=== PATIENT | male | born 1935 | race Hispanic/Latino ===

== ENCOUNTER 2017-05-11 08:01 | Day surgery (SDC) | payer MEDICARE, BC ==
[2017-05-11 08:22] VITALS: BMI 22.8
[2017-05-11] MEDS ORDERED: Propofol 10 mg/ml Inj (20 ML) ONE (09:38)
[2017-05-11] MEDS ORDERED: Benzocaine/Butamben/Tetracai 14-2-2% TOP Spray TOP ONE (09:45)
[2017-05-11] MEDS ORDERED: Sodium Chloride 0.9% 1,000 ML IV SCH (10:15)
[2017-05-11 11:21] VITALS: BP 140/75; PULSE 103; RESP 18; TEMP 97.3; O2SAT 92
== END 2017-05-11 11:32 | disposition home or self-care (01) ==
LOC: ENDO 08:01
PROVIDERS: ATTEND Specialist
DX: K29.50 Unspecified chronic gastritis without bleeding (principal); K44.9 Diaphragmatic hernia without obstruction or gangrene; I10 Essential (primary) hypertension; J44.9 Chronic obstructive pulmonary disease, unspecified; E78.5 Hyperlipidemia, unspecified
CPT/HCPCS: 43239; 88305; 88342; J2704; J7040 ×2

== ENCOUNTER 2017-05-16 10:34 | Inpatient (IN) | payer MEDICARE, BC ==
[2017-05-16 10:39] VITALS: BMI 29.0
--- NOTE | 2017-05-16 10:59 | ED PDOC ---
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 Patient uses nebulizer treatments at home with no improvement of symptoms. notes a cough but denies any fever, nausea, vomiting, abdominal pain, chest pain or any other complaints. PMD: Dr. Latham Time/Duration: < month Symptom Course: Worsening Quality: Other Context: Home Past Medical History - Provider Review Nursing Documentation Reviewed: Yes - Cardiac Hx Pacemaker: No - Pulmonary Hx Respiratory Disorders: Yes Hx Chronic Obstructive Pulmonary Disease (COPD): Yes Other/Comment: as per family, with chronic cough, on/off coughing noted during interview - Neurological Hx Neurological Disorder: Yes HX Cerebrovascular Accident: Yes (2009- right side weakness) Hx Seizures: No (on kepra to prevent seizure post CVA) - HEENT Hx HEENT Disorder: Yes Hx Cataracts: Yes - Renal Hx Renal Disorder: No - Endocrine/Metabolic Hx Endocrine Disorders: No - Hematological/Oncological Hx Blood Transfusions: No Hx Blood Transfusion Reaction: No - Integumentary Hx Dermatological Disorder: Yes Other/Comment: right lower leg with scab - Musculoskeletal/Rheumatological Hx Musculoskeletal Disorders: Yes - Gastrointestinal Hx Gastrointestinal Disorders: No - Genitourinary/Gynecological Hx Genitourinary Disorders: No - Psychiatric Hx Emotional Abuse: No Hx Physical Abuse: No Hx Substance Use: No - Anesthesia Hx Anesthesia Reactions: No Hx Malignant Hyperthermia: No - Suicidal Assessment Feels Threatened In Home Enviroment: No Family/Social History - Physician Review Nursing Documentation Reviewed: Yes Family/Social History: No Known Family HX Smoking Status: Former Smoker Hx Alcohol Use: Yes Hx Substance Use: No Allergies/Home Meds Allergies/Adverse Reactions: Allergies ampicillin Allergy (Verified 05/16/17 10:41) RASH influenza virus vaccine, specific Allergy (Verified 05/16/17 10:41) RASH Penicillins Allergy (Verified 05/16/17 10:41) RASH Home Medications: Home Meds Medication Instructions Recorded Confirmed Enalapril Maleate [Vasotec] 10 cap PO DAILY 01/14/16 05/16/17 Levetiracetam [Keppra Xr] 500 cap PO HS 01/14/16 05/16/17 Metoprolol Tartrate 25 cap PO DAILY 01/14/16 05/16/17 Omeprazole 40 mg PO DAILY 01/14/16 05/16/17 Simvastatin 40 mg PO HS 01/14/16 05/16/17 Thiamine [Vitamin B1 Tab] 1 cap PO DAILY 01/14/16 05/16/17 Escitalopram [Lexapro] 5 mg PO DAILY 05/11/17 05/16/17 Budesonide [Pulmicort Respules] 1 inh NEB BID 05/16/17 05/16/17 Ipratropium 0.02% [Atrovent] 1 inh NEB QID 05/16/17 05/16/17 Meloxicam [Mobic] 7.5 mg PO BID 05/16/17 05/16/17 Review of Systems - Physician Review All systems were reviewed & negative as marked: Yes - Review of Systems Constitutional: absent: Fevers Respiratory: SOB, Cough Cardiovascular: absent: Chest Pain Gastrointestinal: absent: Abdominal Pain, Nausea, Vomiting Physical Exam Vital Signs Reviewed: Yes Vital Signs Temp Pulse Resp BP 05/16/17 12:54 81 05/16/17 12:52 81 05/16/17 12:01 65 109/51 L 05/16/17 11:00 118/61 05/16/17 10:35 98.9 F 74 16 131/64 Temperature: Afebrile Blood Pressure: Normal Pulse: Regular Respiratory Rate: Normal Appearance: Positive for: Well-Appearing, Non-Toxic, Uncomfortable Pain Distress: None Mental Status: Positive for: Alert and Oriented X 3 - Systems Exam Head: Present: Atraumatic, Normocephalic Pupils: Present: PERRL Extroacular Muscles: Present: EOMI Conjunctiva: Present: Normal Mouth: Present: Moist Mucous Membranes Neck: Present: Normal Range of Motion Respiratory/Chest: Present: Tachypneic, Other (Crackles throughout entire lung field). No: Respiratory Distress, Accessory Muscle Use Cardiovascular: Present: Regular Rate and Rhythm, Normal S1, S2. No: Murmurs Abdomen: Present: Normal Bowel Sounds. No: Tenderness, Distention, Peritoneal Signs Back: Present: Normal Inspection Upper Extremity: No: Cyanosis, Edema Lower Extremity: Present: Edema (+2 pitting edema in right lower extremity, trace edema in left lower extremity), NORMAL PULSES. No: CALF TENDERNESS Neurological: Present: Other (right sided paralysis and right facial droop s/p cva) Skin: Present: Warm, Dry, Normal Color. No: Rashes Psychiatric: Present: Alert, Oriented x 3, Normal Insight, Normal Concentration Medical Decision Making ED Course and Treatment: 05/16/17 10:53 Impression: A 81 year old male with worsening shortness of breath and cough. Differential Diagnosis included but are not limited to: Hypercapneic respiratory failure vs CHF exacerbation vs COPD Exacerbation r/o PNA Plan: -- Chest xray -- EKG -- Labs -- Blood and Urine culture -- Urinalysis -- Duoneb, Lasix, Solumedrol and Nitroglycerin -- Reassess and disposition Progress Notes: EKG shows NSR at 74 BPM with bifascicular block. Interpreted by me. 05/16/17 12:34 On arrival, patient was placed immediately on BiPAP. Labs and CXR reviewed. CXR shows right sided infiltrates vs pleural effusion. Will treat with levaquin IV. Blood cultures already sent. Patient improved with BiPAP but still having symptoms. Consulted Dr. Huerta from the ICU and he accepted the case to his service. Case discussed with Dr. Alec Villa who will admit the patient to his service. - Critical Care Critical Care Minutes: 60 minutes - Lab Interpretations Lab Results: 05/16/17 11:04 05/16/17 11:04 Lab Results 05/16/17 12:13: pCO2 63 H, pO2 97.0, HCO3 34.0 H, ABG pH 7.34 L, ABG Total CO2 35.9 H, ABG O2 Saturation 98.8 H, ABG O2 Content 18.2, ABG Base Excess 6.2 H, ABG Hemoglobin 13.4, ABG Carboxyhemoglobin 1.8 H, POC ABG HHb (Measured) 1.2, ABG Methemoglobin 1.1, ABG O2 Capacity 18.4, Hgb O2 Saturation 95.9, FiO2 50.0 05/16/17 11:04: Sodium 139, Chloride 95 L, Potassium 4.8, Carbon Dioxide 34 H, Anion Gap 15, BUN 24 H, Creatinine 0.7, Est GFR ( Amer) > 60, Est GFR ( Non-Af Amer) > 60, Random Glucose 140 H, Calcium 9.3, Total Bilirubin 0.4, AST 85 H, ALT 90 H, Alkaline Phosphatase 91, Lactate Dehydrogenase 692, Total Creatine Kinase 36, Troponin I < 0.01, NT-Pro-B Natriuret Pep 390, Total Protein 7.6, Albumin 3.9, Globulin 3.6, Albumin/Globulin Ratio 1.1 05/16/17 11:04: pO2 118 H, VBG pH 7.29 L, VBG pCO2 76.0 H*, VBG HCO3 36.5 H, VBG Total CO2 38.8 H, VBG O2 Sat (Calc) 99.1 H, VBG Base Excess 7.1 H, VBG Potassium 4.8, Sodium 134.0, Chloride 98.0, Glucose 142 H, Lactate 1.8, FiO2 21.0, Venous Blood Potassium 4.8 05/16/17 11:04: PT 11.4, INR 1.06, APTT 27.6 05/16/17 11:04: WBC 9.1 D, RBC 4.54, Hgb 13.7 L, Hct 42.6, MCV 93.8, MCH 30.2, MCHC 32.2, RDW 13.2, Plt Count 200, MPV 10.6, Gran % 78.9 H, Lymph % (Auto) 12.3 L, [place] % (Auto) 8.6 H, Eos % (Auto) 0.1 L, Baso % (Auto) 0.1, Gran # 7.20 H, Lymph # 1.1 L, [place] # 0.8 H, Eos # 0.0, Baso # 0.01 I have reviewed the lab results: Yes - RAD Interpretation Radiology Orders: 05/16/17 10:52 CHEST PORTABLE [RAD] Stat 05/16/17 12:12 CHEST W/O CONTRAST [CT] Stat - Medication Orders Current Medication Orders: Atorvastatin Calcium (Lipitor) 40 mg PO DAILY MIYA Levetiracetam (Keppra) 500 mg PO DAILY MIYA Discontinued Medications Albuterol/Ipratropium (Duoneb 3 Mg/0.5 Mg (3 Ml) Ud) 3 ml IH Q15M MIYA Stop: 05/16/17 11:31 Last Admin: 05/16/17 12:05 Dose: 3 ml Furosemide (Lasix) 40 mg IVP STAT STA Stop: 05/16/17 10:52 Last Admin: 05/16/17 11:00 Dose: 40 mg MAR Blood Pressure Document 05/16/17 11:00 AD (Rec: 05/16/17 11:32 [facility] [id number] Blood Pressure Blood Pressure (100/60-150/90) 118/61 IVP Administration Document 05/16/17 11:00 AD (Rec: 05/16/17 11:32 [facility] [id number]) Charges for Administration # of IVP Administrations 1 Levofloxacin/Dextrose (Levaquin 750mg) 750 mg in 150 mls @ 100 mls/hr IVPB STAT STA Stop: 05/16/17 12:45 Last Admin: 05/16/17 11:44 Dose: 100 mls/hr eMAR Start Stop Document 05/16/17 11:44 AD (Rec: 05/16/17 11:44 [facility] [id number]) Intravenous Solution Start Date 05/16/17 Start Time 11:44 Methylprednisolone (Solu-Medrol) 125 mg IVP STAT STA Stop: 05/16/17 10:52 Last Admin: 05/16/17 11:00 Dose: 125 mg IVP Administration Document 05/16/17 11:00 AD (Rec: 05/16/17 11:33 [facility] [id number]) Charges for Administration # of IVP Administrations 1 Nitroglycerin (Nitro-Bid 2% Oint) 1 ea TOP STAT STA Stop: 05/16/17 11:01 - Scribe Statement The provider has reviewed the documentation as recorded by the Scribe Trish Collier Provider Scribe Attestation: All medical record entries made by the Scribe were at my direction and personally dictated by me. I have reviewed the chart and agree that the record accurately reflects my personal performance of the history, physical exam, medical decision making, and the department course for this patient. I have also personally directed, reviewed, and agree with the discharge instructions and disposition. Disposition/Present on Arrival - Present on Arrival Any Indicators Present on Arrival: No History of DVT/PE: No History of Uncontrolled Diabetes: No Urinary Catheter: No History Surgical Site Infection Following: None - Disposition Have Diagnosis and Disposition been Completed?: Yes Diagnosis: CHF exacerbation, Respiratory failure Disposition Time: 12:34 Patient Plan: ICU Patient Problems: Current Active Problems Problem Status Onset CHF exacerbation Acute Respiratory failure Acute Condition: GUARDED
[2017-05-16] MEDS ORDERED: Nitroglycerin 2% Ointment Foilpak UD TOP STA (11:00)
[2017-05-16 11:10] LABS: VENOUS BLOOD GAS BASE EXCESS 7.1 mmol/L (0.0-2.0); VENOUS BLOOD PH 7.29 (7.32-7.43)
[2017-05-16] MEDS ORDERED: levoFLOXacin 750 mg in D5W 750 MG/150 ML BAG IVPB STA (11:16)
[2017-05-16 11:18] LABS: BASO # 0.01 K/mm3 (0.0-2.0); BASO % 0.1 % (0.0-3.0); EOS % 0.1 % (1.5-5.0); GRAN # 7.2 (1.4-6.5); GRAN % 78.9 % (50.0-68.0); HEMATOCRIT 42.6 % (42.0-52.0); LYMPH # 1.1 (1.2-3.4); LYMPH % 12.3 % (22.0-35.0); MEAN CELL VOLUME 93.8 fl (80.0-105.0); MEAN CORPUSCULAR HEMOGLOBIN 30.2 pg (25.0-35.0); MEAN CORPUSCULAR HGB CONC 32.2 g/dl (31.0-37.0); MEAN PLATELET VOLUME 10.6 fl (7.0-11.0); MONO # 0.8 (0.1-0.6); MONO % 8.6 % (1.0-6.0); RED CELL DISTRIBUTION WIDTH 13.2 % (11.5-14.5); WHITE BLOOD COUNT 9.1 10^3/ul (4.5-11.0)
[2017-05-16 11:23] LABS: ALB/GLOB RATIO 1.1 (1.1-1.8); ALKALINE PHOSPHATASE 91 U/L (38-126); ALT/SGPT 90 U/L (7-56); AST/SGOT 85 U/L (17-59); BILIRUBIN,TOTAL 0.4 mg/dL (0.2-1.3); BLOOD UREA NITROGEN 24 mg/dL (7-21); CALCIUM 9.3 mg/dL (8.4-10.5); CARBON DIOXIDE 34 mmol/L (21-33); CHLORIDE 95 mmol/L (98-107); GFR AFRICAN-AMERICAN > 60; GLUCOSE,RANDOM 140 mg/dL (70-110); INR 1.06 (0.93-1.08); PARTIAL THROMBOPLASTIN TIME 27.6 Seconds (23.7-30.8); POTASSIUM 4.8 mmol/L (3.6-5.0); SODIUM 139 mmol/L (132-148); TOTAL PROTEIN 7.6 g/dL (5.8-8.3)
[2017-05-16] MEDS: Albuterol-Ipratrop 3 mg / 0.5 (3 ml) UD IH SCH ×7 (11:33→23:26)
[2017-05-16 11:35] LABS: TROPONIN I < 0.01 ng/mL
[2017-05-16 12:16] LABS: ARTERIAL BLOOD GAS O2 CAPACITY 18.4 mL/dl (16-24); ARTERIAL BLOOD GAS O2 CONTENT 18.2 ML/dl (15-23); ARTERIAL BLOOD GAS PH 7.34 (7.35-7.45); ARTERIAL BLOOD HGB O2 SAT 95.9 % (95.0-98.0); CARBOXYHEMOGLOBIN 1.8 % (0.5-1.5); HHB 1.2 % (0-5); METHEMOGLOBIN 1.1 % (0.0-3.0)
--- NOTE | 2017-05-16 13:07 | RAD ---
HISTORY: sob r/o pna r/o chf COMPARISON: 10/09/2015 FINDINGS: LUNGS: There is haziness in the visualized right lung. There is mild pulmonary venous congestion in the left lung. No focal consolidation in the left lung. PLEURA: There is moderate right pleural effusion. No left pleural effusion. No pneumothorax CARDIOVASCULAR: There is mild cardiomegaly. Atherosclerotic aortic arch calcifications are present. . OSSEOUS STRUCTURES: No significant abnormalities. VISUALIZED UPPER ABDOMEN: Normal. OTHER FINDINGS: None. IMPRESSION: Limited portable examination, moderate right pleural effusion. Underlying atelectasis/ pneumonia cannot be excluded. Follow-up is advised.
--- NOTE | 2017-05-16 13:07 | CT ---
PROCEDURE: CT Chest without contrast HISTORY: pneumonia COMPARISON: Comparison made with chest radiograph 06/15/2017 at 1059 hours. Comparison also made with chest radiographs dated 10/09/2015. TECHNIQUE: Contiguous axial images were obtained through the chest without intravenous contrast enhancement. Sagittal and coronal reconstructions were performed. Radiation dose (DLP): 663.93 mGy-cm. This CT exam was performed using one or more of the following dose reduction techniques: Automated exposure control, adjustment of the mA and/or kV according to patient size, and/or use of iterative reconstruction technique. FINDINGS: LUNGS: The current study reveals large right-sided effusion and moderately large area of atelectasis right lower lobe . The right lower lobe bronchus is not visualized and may either be compressed by atelectasis however the possibility of a hilar or perihilar mass density cannot be excluded. Clinical correlation recommended. MEDIASTINUM: Heart size is within range of normal. Questionable trace pericardial effusion. Coronary artery calcifications are present. Ascending thoracic aorta measures approximately 3.6 7 cm and descending thoracic aorta measures approximately 2.8 cm. Pulmonary trunk measures approximately 3.36 cm. There are multiple mediastinal lymph nodes the largest of which is located posterior to the esophagus measuring approximately 17.6 mm. Evaluation for hilar adenopathy on the left side limited due to the lack of circulating intravenous contrast material. Similarly evaluation for right hilar adenopathy limited due to the lack of contrast however further limited by atelectasis of the right lower lobe. As mentioned above, the possibility of a hilar or perihilar mass density cannot be excluded. Clinical correlation recommended. PLEURA: As above. No evidence of pneumothorax. BONES: Multilevel degenerative spondylosis of the thoracic spine. There are no acute compression fractures no retropulsed fragments. Mild increased kyphotic angulation in the upper thoracic region due to some minor chronic anterior stature loss of several upper thoracic segments. No evidence of retropulsed fragments. . No suspicious lytic or blastic lesions seen. UPPER ABDOMEN: There are multiple low-attenuation lesions scattered throughout the hepatic parenchyma the appearance of which suggests metastatic deposits. Clinical correlation recommended. There is a discrete somewhat elliptical shaped area of low attenuation superior lateral aspect left lobe liver bordering the diaphragm measuring approximately 4.5 x 3.4 x 2.25 cm consistent with a cyst. Additionally, there are a few scattered calcifications within the hepatic parenchyma consistent with prior exposure to granulomatous disease process. Note made of a small rounded elliptical shaped soft tissue mass densities in the anterior right lateral pericardial fat. Rule out metastasis. Slightly nodular appearing adrenal glands. OTHER FINDINGS: None. IMPRESSION: Large right-sided effusion and moderately large area of atelectasis right lower lobe . The right lower lobe bronchus is not visualized and may either be compressed by atelectasis however the possibility of a hilar or perihilar mass density cannot be excluded. Clinical correlation recommended. Multiple low-attenuation lesions scattered throughout the hepatic parenchyma, the appearance of which suggests metastatic deposits. Clinical correlation recommended. There is a discrete somewhat elliptical shaped area of low attenuation superior lateral aspect left lobe liver bordering the diaphragm measuring approximately 4.5 x 3.4 x 2.25 cm consistent with a cyst. Additionally, there are a few scattered calcifications within the hepatic parenchyma consistent with prior exposure to granulomatous disease process. Note these findings were discussed with Dr. Frias at approximately 1 p.m. with written down and read back verification.
[2017-05-16 14:50] LABS: URINE BILIRUBIN NEGATIVE (NEGATIVE); URINE BLOOD NEGATIVE (NEGATIVE); URINE GLUCOSE (UA) NEGATIVE (NEGATIVE); URINE KETONE NEGATIVE (NEGATIVE); URINE LEUKOCYTE ESTERASE SMALL Leu/uL (NEGATIVE); URINE PROTEIN TRACE mg/dL (<30 mg/dL); URINE UROBILINOGEN 0.2 E.U./dL (<1 E.U./dL)
[2017-05-16 14:51] LABS: URINE APPEARANCE CLEAR (CLEAR); URINE COLOR YELLOW (YELLOW)
[2017-05-16 14:54] LABS: URINE BACTERIA TRACE (NEG); URINE RBC 0 - 2 /hpf (0-2); URINE WBC 0 - 2 /hpf (0-6)
--- NOTE | 2017-05-16 15:50 | RAD ---
HISTORY: Thoracocentesis COMPARISON: 05/16/2017 FINDINGS: LUNGS: There is airspace disease in the right lower lobe. There is mild left basilar atelectasis. PLEURA: Status post right thoracentesis, right-sided chest tube terminates in the mid pleural cavity. There is near complete resolution of right pleural effusion. Small right lower lateral and basilar pneumothorax. CARDIOVASCULAR: The heart is normal in size. Atherosclerotic aortic arch calcifications are present. . OSSEOUS STRUCTURES: No significant abnormalities. VISUALIZED UPPER ABDOMEN: Normal. OTHER FINDINGS: None. IMPRESSION: Status post right thoracentesis, small right lower lateral and basilar pneumothorax. Airspace disease in the right lower lobe could represent compressive atelectasis or consolidation.
[2017-05-16 18:24] LABS: BODY FLUID TYPE PLEURAL/THORACENTESI
[2017-05-16] MEDS ORDERED: Iohexol 350 MG/100 ML VIAL ONE (18:54)
[2017-05-16 19:24] LABS: BF GROSS APPEARANCE BLOODY (CLEAR)
[2017-05-16 19:25] LABS: BODY FLUID TOTAL COUNT 100 (0-0)
--- NOTE | 2017-05-16 20:15 | CP.PCM.PN ---
Subjective - Date & Time of Evaluation Date of Evaluation: 05/16/17 Time of Evaluation: 20:14 - Subjective Subjective: 1:1 order was requested. Objective - Vital Signs/Intake and Output Vital Signs (last 24 hours): Temp Pulse Resp BP Pulse Ox 97.6 F 96 H 29 H 92/56 L 89 L 05/16/17 17:15 05/16/17 19:38 05/16/17 17:00 05/16/17 17:00 05/16/17 17:00 Intake and Output: 05/16/17 05/17/17 18:59 06:59 Intake Total 100 Output Total 100 Balance 0 - Medications Medications: Current Medications Albuterol/Ipratropium (Duoneb 3 Mg/0.5 Mg (3 Ml) Ud) 3 ml IH Q4H MIYA Last Admin: 05/16/17 19:35 Dose: 3 ml Atorvastatin Calcium (Lipitor) 40 mg PO DAILY [facility] Heparin Sodium (Porcine) (Heparin) 5,000 units SC Q8H MIYA PRN Reason: Protocol Last Admin: 05/16/17 13:41 Dose: 5,000 units Levofloxacin/Dextrose (Levaquin 750mg) 750 mg in 150 mls @ 100 mls/hr IVPB DAILY MIYA Levetiracetam (Keppra) 500 mg PO DAILY MIYA Methylprednisolone (Solu-Medrol) 40 mg IVP Q8H MIYA Pantoprazole Sodium (Protonix Inj) 40 mg IVP DAILY [facility] Last Admin: 05/16/17 13:41 Dose: 40 mg - Labs Labs: PT 11.4 Seconds (9.9-11.8) 05/16/17 11:04 INR 1.06 (0.93-1.08) 05/16/17 11:04 APTT 27.6 Seconds (23.7-30.8) 05/16/17 11:04
--- NOTE | 2017-05-16 21:42 | CARD ---
APPROVED REPORT EXAM: Two-dimensional and M-mode echocardiogram with Doppler and color Doppler. INDICATION Congestive Heart Failure 2D DIMENSIONS LVEF (%)50.0 (>50%) M-Mode DIMENSIONS Aortic Root4.00 (2.2-3.7cm)Aortic Cusp Exc.1.60 (1.5-2.0cm) Aortic Valve AoV Peak Tlngkaab972.0cm/Latha Peak GR.13mmHg Mitral Valve MV E Wrzeipzz87.1cm/sMV A Qrwszpza958.0cm/sMV [id number] E/A ratio0.6MVA (PHT)2.78cm2 TDI Lateral E' Peak V4.87cm/sMedial E' Peak V5.36cm/sE/Lateral E'14.4 E/Medial E'13.1 Tricuspid Valve TR Peak [id number]/sRAP [id number] Peak Gr.36mmHg [id number] LEFT VENTRICLE The left ventricle is normal size. There is mild concentric left ventricular hypertrophy. Left ventricle systolic function is borderline. There is normal LV segmental wall motion. Transmitral Doppler flow pattern is Grade II-pseudonormal filling dynamics. RIGHT VENTRICLE The right ventricle is mildly dilated. There is normal right ventricular wall thickness. The right ventricular systolic function is normal. ATRIA The left atrium size is normal. The right atrium size is normal. AORTIC VALVE The aortic valve is not well visualized. There is mild aortic regurgitation. MITRAL VALVE The mitral valve is not well visualized. There is no mitral valve regurgitation noted. TRICUSPID VALVE There is mild to moderate pulmonary hypertension. GREAT VESSELS The aortic root is mildly enlarged. PERICARDIAL EFFUSION There is a trace loculated anterior pericardial effusion. <Conclusion> The left ventricle is normal size. There is mild concentric left ventricular hypertrophy. Left ventricle systolic function is borderline. There is normal LV segmental wall motion. There is mild aortic regurgitation. The aortic root is mildly enlarged. There is mild to moderate pulmonary hypertension.
--- NOTE | 2017-05-16 22:28 | CP.PCM.CON ---
History of Present Illness - History of Present Illness History of Present Illness: Surgery: Dr. Morales CC: R PTX HPI: 81M seen in ICU. Pt is on CPAP and unable to provide history. Hx was gathered from family and reviewe of chart. Pt has pmh of CVA with residual right sided paralysis and COPD. Pt presented to ED complaining of worsening shortness of breath for the past few weeks. CT was done and showed Large right- sided effusion and moderately large area of atelectasis right lower lobe for which thoracentesis was done. Pt developed subsequent R side PTX and surgery was consulted for chest tube placement. PMH: PVD, HTN, CVA, COPD PSH: none Meds: MAR reviewed ALL: PCN, ampicillin, flu vaccine Social: Former smoker, no ETOH drugs Fhx: non-contributory Review of Systems - Review of Systems Systems not reviewed;Unavailable: Acuity of Condition Past Patient History - Infectious Disease Hx of Infectious Diseases: None - Past Medical History & Family History Past Medical History?: Yes - Past Social History Smoking Status: Former Smoker - CARDIAC Hx Peripheral Vascular Disease: Yes - PULMONARY Hx Chronic Obstructive Pulmonary Disease (COPD): No (family members "think") - NEUROLOGICAL HX Cerebrovascular Accident: Yes - HEENT Hx Cataracts: Yes - RENAL Hx Chronic Kidney Disease: No - ENDOCRINE/METABOLIC Hx Endocrine Disorders: No - HEMATOLOGICAL/ONCOLOGICAL Hx Blood Disorders: No - INTEGUMENTARY Hx Dermatological Problems: No - MUSCULOSKELETAL/RHEUMATOLOGICAL Hx Musculoskeletal Disorders: Yes Hx Falls: Yes (7 1/2 yrs ago) Hx Unsteady Gait: Yes - GASTROINTESTINAL Hx Gastrointestinal Disorders: No - GENITOURINARY/GYNECOLOGICAL Hx Genitourinary Disorders: No - PSYCHIATRIC Hx Psychophysiologic Disorder: No - SURGICAL HISTORY Hx Surgeries: No - ANESTHESIA Hx Anesthesia Reactions: No Hx Malignant Hyperthermia: No Meds Allergies/Adverse Reactions: Allergies Allergy/AdvReac Type Severity Reaction Status Date / Time ampicillin Allergy RASH Verified 05/16/17 10:41 influenza virus vaccine, Allergy RASH Verified 05/16/17 10:41 specific Penicillins Allergy RASH Verified 05/16/17 10:41 - Medications Medications: Current Medications Albuterol/Ipratropium (Duoneb 3 Mg/0.5 Mg (3 Ml) Ud) 3 ml IH Q4H [facility] Last Admin: 05/16/17 19:35 Dose: 3 ml Atorvastatin Calcium (Lipitor) 40 mg PO DAILY [facility] Heparin Sodium (Porcine) (Heparin) 5,000 units SC Q8H [facility] PRN Reason: Protocol Last Admin: 05/16/17 21:43 Dose: 5,000 units Levofloxacin/Dextrose (Levaquin 750mg) 750 mg in 150 mls @ 100 mls/hr IVPB DAILY [facility] Levetiracetam (Keppra) 500 mg PO DAILY [facility] Methylprednisolone (Solu-Medrol) 40 mg IVP Q8H [facility] Pantoprazole Sodium (Protonix Inj) 40 mg IVP DAILY [facility] Last Admin: 05/16/17 13:41 Dose: 40 mg Physical Exam - Constitutional Appears: Non-toxic, No Acute Distress - Head Exam Head Exam: ATRAUMATIC, NORMOCEPHALIC - Eye Exam Eye Exam: EOMI. absent: Scleral icterus Pupil Exam: NORMAL ACCOMODATION - ENT Exam ENT Exam: Mucous Membranes Moist - Neck Exam Neck exam: Positive for: Full Rom Additional comments: trachea midline - Respiratory Exam Respiratory Exam: absent: Accessory Muscle Use, Respiratory Distress, NORMAL BREATHING PATTERN (tachypnic) - Cardiovascular Exam Cardiovascular Exam: +S1, +S2 - GI/Abdominal Exam GI & Abdominal Exam: Soft - Extremities Exam Extremities exam: Negative for: calf tenderness, pedal edema - Neurological Exam Neurological exam: Alert Results - Vital Signs Recent Vital Signs: Last Vital Signs Temp 99.6 F 05/16/17 20:00 Pulse 107 H 05/16/17 20:40 Resp 29 H 05/16/17 20:40 BP 106/57 L 05/16/17 20:00 Pulse Ox 99 05/16/17 20:40 - Labs Result Diagrams: 05/16/17 11:04 05/16/17 11:04 Labs: Laboratory Results - last 24 hr 05/16/17 05/16/17 05/16/17 12:44 12:44 12:44 C-React Prot High Sens > 15.00 H NT-Pro-B Natriuret Pep 388 Procalcitonin 0.22 Urine Color Urine Appearance Urine pH Ur Specific [place] Urine Protein Urine Glucose (UA) Urine Ketones Urine Blood Urine Nitrate Urine Bilirubin Urine Urobilinogen Ur Leukocyte Esterase Urine RBC Urine WBC Ur Epithelial Cells Urine Bacteria Hyaline Casts Fluid Source Fluid Appearance Fluid WBC Fluid RBC Fluid Tot Cell Count Fluid Neutrophils Fluid Lymphocytes Fld Monocyte/Macrophag Fluid Comment Pleural pH 05/16/17 05/16/17 05/16/17 14:30 17:00 17:00 C-React Prot High Sens NT-Pro-B Natriuret Pep Procalcitonin Urine Color Yellow Urine Appearance Clear Urine pH 6.0 Ur Specific [place] 1.020 Urine Protein Trace H Urine Glucose (UA) Negative Urine Ketones Negative Urine Blood Negative Urine Nitrate Negative Urine Bilirubin Negative Urine Urobilinogen 0.2 Ur Leukocyte Esterase Small H Urine RBC 0 - 2 Urine WBC 0 - 2 Ur Epithelial Cells 3 - 4 Urine Bacteria Trace Hyaline Casts 0 - 2 Fluid Source Pleural/thoracentesi Fluid Appearance Bloody Fluid WBC 2248.0 H Fluid RBC 730893.0 H Fluid Tot Cell Count 100 H Fluid Neutrophils 7.9 H Fluid Lymphocytes 92.1 H Fld Monocyte/Macrophag TEST NOT PERFORMED Fluid Comment Cloudy Pleural pH 8.0 - Imaging and Cardiology CT scan - chest Status: Image reviewed by me, Report reviewed by me Assessment & Plan - Assessment and Plan (Free Text) Assessment: 81M w. R PTX -CT placed at bedside -CT to suction -Daily CXR -case d/w attending Nara PGY3 Procedures - Chest Tube Chest Tube Location: Anterior Chest Right Size of Tube (cm): 28 Chest Tube Procedure: Chlorhexidine Tube Sutured to Skin: Yes Sterile Dressing Applied: Yes Anesthesia: Lidocaine 1% Volume Anesthetic (mls): 20 Incision Made With: #11 blade Post Procedure: sutured to skin, sterile dressing applied, air occlusive dressing Case of Air [place]: Yes Tube Drainage: blood Amount of Initial Drainage: 10 Post Procedure CXR?: Yes Patient Tolerated Procedure: Yes
--- NOTE | 2017-05-16 22:46 | CARD ---
APPROVED REPORT EKG Measurement Heart [id number] FL [id number] [id number] <Conclusion> Normal sinus rhythm Left axis deviation Right bundle branch block Abnormal ECG
--- NOTE | 2017-05-17 | CON ---
DATE: 05/16/2017 HISTORY OF PRESENT ILLNESS: This is an 81-year-old gentleman with history of COPD, who presented to [facility] today with complaint of shortness of breath that developed gradually over the period of a few weeks. The patient used nebulizer treatment at home, however, without any improvement. No chest pain. No fevers, chills or sweats. No nausea. No vomiting. No diarrhea. No constipation. Shortness of breath was getting worse on exertion. PAST MEDICAL HISTORY: CVA, COPD, emphysema, and dysphagia. FAMILY HISTORY: Noncontributory. ALLERGIES: AMPICILLIN, PENICILLINS, INFLUENZA VIRUS VACCINE. MEDICATIONS AT HOME: Vasotec, Keppra, metoprolol, omeprazole, simvastatin, thiamine, Lexapro, Pulmicort inhaler, Atrovent, and meloxicam. REVIEW OF SYSTEMS: Review of 12 pertinent systems other than mentioned in history of present illness is negative. PHYSICAL EXAMINATION: GENERAL: The patient is on BiPAP. VITAL SIGNS: Heart rate is 81, blood pressure 109/51 with mean arterial pressures 70, FiO2 is 50%, oxygen saturation 98%. HEENT: Head and neck atraumatic. LUNGS: Clear to auscultation bilaterally. HEART: Regular rate and rhythm. S1 and S2 distant. ABDOMEN: Soft, mildly distended and nontender. MUSCULOSKELETAL: Trace bilateral pedal and ankle edema. NEURO: Status post CVA in the past. SKIN: Color is moist. PSYCH: The patient is alert and oriented x3. LABORATORY DATA: ABG showed pH 7.34, pCO2 of 63, pO2 of 97 on 50% FiO2, O2 sat 98, lactic acid 1.8. WBC 9.1, hemoglobin 15.7, platelet count 200. Sodium 139, potassium 4.8, chloride 95, carbon dioxide 34, BUN 24, creatinine 0.7, glucose 140. AST 85, ALT 90. Troponin less than 0.01. ProBNP 388. INR 1.06. MEDICATIONS GIVEN IN EMERGENCY ROOM: Furosemide, albuterol, levofloxacin, Solu-Medrol 125 mg IV. CAT scan of the chest revealed large pleural effusion on the right side, compressing the right middle and lower lobe. There are suspicious metastatic disease lesions in the liver. ASSESSMENT AND PLAN: This is an 81-year-old gentleman who presented with gradually worsening shortness of breath in the setting of large unilateral right-sided pleural effusion with subsequent right middle and lower lobe atelectasis. At this time, the ProBNP is not elevated, which makes congestive heart failure etiology for pleural effusion less likely. Absence of fever and leukocytosis makes infectious etiology less likely as well; however, unable to rule that out with certainty at the present time, thus I agree with septic workup, procalcitonin, and empiric antibiotics. Lesions in the liver suspicious for metastatic disease are of concern, unclear what primary it can be. 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 Diagnostic and therapeutic thoracentesis is indicated with subsequent microbiologic and cytologic analysis. At the present time, the patient will be going to ICU with low threshold for intubation. We will continue with antibiotics, conservative fluid and oxygen management, bronchodilators, and steroid taper. At the present time, the patient will be on bilevel positive airway pressure. Arterial blood gas demonstrates acute on chronic respiratory acidosis with CO2 retention. We will repeat arterial blood gas. Low threshold for intubation. We will continue with deep venous thrombosis and gastrointestinal prophylaxis. If the cytology of his pleural fluid is negative for malignant cells, we will proceed with liver lesions biopsy. ccm time 40 min Pete Huerta MD MTDKiet
[2017-05-17] MEDS: MethylPREDNISolone 40 mg Vial IVP SCH ×3 (00:48→18:10)
[2017-05-17] MEDS: Albuterol-Ipratrop 3 mg / 0.5 (3 ml) UD IH SCH ×6 (03:11→23:25)
--- NOTE | 2017-05-17 06:05 | OP ---
PROCEDURE DATE: 05/16/2017 HISTORY: The patient is seen and examined at the beside. PROCEDURE: Right-sided thoracentesis. INDICATION: Almost complete collapse of the right lung due to large pleural effusion and respiratory insufficiency. DESCRIPTION OF PROCEDURE: After obtaining an informed consent, operation area was sterilized. Maximum barrier precautions used. Best pocket of the fluid was identified with a real time ultrasound and insertion at that area was made. Catheter was introduced to the pleural space over the needle and the needle was withdrawn. 1.2 L of Serosanguineous fluid was drained. The patient tolerated the procedure well. Sterile dressing applied. Hemostasis achieved. Chest x-ray showed improved aeration on the right side. Questionable small basal pneumothorax suggested on the chest x-ray. CAT scan of the chest, abdomen and pelvis with IV contrast as a next step in pt workup to rule out malignant origin of mediastinal LAD and hepatic lesions is pending. This will allow to assess whether patient indeed has PTX D/d also includes trapped or entrapped lung. Vital signs are stable. The patient does not have any vague chest pain or complaints. Shortness of breath substantially improved after thoracentesis. Addendum: CT chest demonstrated PTX: Family notified. Dr. Morales contacted , chest tube placed in on suction. Patient is hemodynamically and respiratory buitrago relatively stable Pete Huerta MD c JIMI
[2017-05-17 07:25] LABS: GRAN # 6.26 (1.4-6.5); GRAN % 87.7 % (50.0-68.0); HEMATOCRIT 40.3 % (42.0-52.0); LYMPH # 0.6 (1.2-3.4); LYMPH % 8.4 % (22.0-35.0); MEAN CELL VOLUME 93.3 fl (80.0-105.0); MEAN CORPUSCULAR HEMOGLOBIN 29.6 pg (25.0-35.0); MEAN CORPUSCULAR HGB CONC 31.8 g/dl (31.0-37.0); MEAN PLATELET VOLUME 10.6 fl (7.0-11.0); MONO # 0.3 (0.1-0.6); MONO % 3.9 % (1.0-6.0); RED CELL DISTRIBUTION WIDTH 13.1 % (11.5-14.5); WHITE BLOOD COUNT 7.1 10^3/ul (4.5-11.0)
--- NOTE | 2017-05-17 07:34 | RAD ---
PROCEDURE: CHEST RADIOGRAPH, 1 VIEW HISTORY: comparison COMPARISON: Portable chest 05/16/2017 21:18 p.m. FINDINGS: Right chest tube appears unchanged in position at the right base laterally. LUNGS: Limited patchy right basilar atelectasis or infiltrate is unchanged with none identified at the left. PLEURA: No pneumothorax or pleural fluid seen. CARDIOVASCULAR: Prior poor remains obscured. No pulmonary vascular derangement identified. OSSEOUS STRUCTURES: No significant abnormalities. VISUALIZED UPPER ABDOMEN: Normal. OTHER FINDINGS: Emphysematous right chest wall changes are diminishing. IMPRESSION: Right basilar atelectasis or infiltrate is not significantly changed. No definite right pleural effusion is seen with right chest tube unchanged in position.
--- NOTE | 2017-05-17 07:34 | RAD ---
HISTORY: s/p chest tube insertion COMPARISON: Portable chest 05/16/2017 15:34 p.m. FINDINGS: A right-sided chest tube is now placed terminating at the right base laterally. LUNGS: Limited atelectasis or infiltrate is seen at the right base with none at the left chest. PLEURA: No pneumothorax appreciated bilaterally at this time. Minimal right pleural effusions not completely excluded. None is seen at the left. CARDIOVASCULAR: Cardiac silhouette appears stable. There is no pulmonary vascular derangement. OSSEOUS STRUCTURES: No significant abnormalities. VISUALIZED UPPER ABDOMEN: Normal. OTHER FINDINGS: Mild to moderate emphysematous changes seen the right chest wall laterally. IMPRESSION: Status post right chest tube placement with no pneumothorax identified this time. Limited right basilar atelectasis or infiltrate is appreciated with none at the left.
[2017-05-17 07:54] LABS: ALKALINE PHOSPHATASE 93 U/L (38-126); ALT/SGPT 86 U/L (7-56); AST/SGOT 81 U/L (17-59); BILIRUBIN,TOTAL 0.4 mg/dL (0.2-1.3); BLOOD UREA NITROGEN 29 mg/dL (7-21); CALCIUM 9.1 mg/dL (8.4-10.5); CARBON DIOXIDE 34 mmol/L (21-33); CHLORIDE 95 mmol/L (98-107); GFR AFRICAN-AMERICAN > 60; GLUCOSE,RANDOM 143 mg/dL (70-110); POTASSIUM 4.4 mmol/L (3.6-5.0); SODIUM 140 mmol/L (132-148); TOTAL PROTEIN 7.1 g/dL (5.8-8.3)
--- NOTE | 2017-05-17 08:35 | CT ---
PROCEDURE: CT Chest, Abdomen and Pelvis with intravenous contrast HISTORY: liver mets, mediastinal mets, trapped lung COMPARISON: Chest CT without contrast 05/16/2017 12:30 p.m.. TECHNIQUE: IV dose administered: Omnipaque 300, 100 cc Radiation dose: Total exam DLP = 1106 mGy-cm. This CT exam was performed using one or more of the following dose reduction techniques: Automated exposure control, adjustment of the mA and/or kV according to patient size, and/or use of iterative reconstruction technique. FINDINGS: CT CHEST WITH CONTRAST: LUNGS: In the interval, the prior large right pleural effusion is now minimal and there is a large right pneumothorax affecting the mid to inferior right lung zone more so than the right apex. The entire right lower lobe and likely right middle lobe are atelectatic with the right upper lobe mildly atelectatic. Underlying pneumonia is not completely excluded. Limited dependent atelectasis identified at the medial left lower lobe with trace ground-glass opacity in a known tiny portion of the left upper lobe (image 52 series 4). A 3 mm noncalcified nodule seen in image 66 with a similar nearly identical focus identified image 72, both at the left lower lobe. Linear atelectasis or fibrosis is minimally seen the left lower lobe as well. No left pneumothorax or pleural effusion. No pericardial effusion. Note, the right lower lobe bronchus remains on identified potentially reflecting neoplasm here. MEDIASTINUM: Cardiac size remains normal with extensive coronary calcifications appreciated. Aortic and great vessel atherosclerosis is appreciated. No thoracic aortic aneurysm appreciated. LYMPH NODES: Mild bilateral hilar adenopathy is suspected though an isolated lymph node is not clearly identified. Soft tissue at the bilateral hilar regions appears mildly prominent. Mild epicardial lymphadenopathy is again appreciate including 2.4 x 1.3 cm lymph node enlarged anteriorly with additional small lymph nodes infrequently scattered anterosuperiorly and to the right. Shotty paratracheal lymph nodes are identified in general, although there is an enlarged inferior left paratracheal lymph node measuring 2.5 x 1.2 cm. 2.2 x 1.6 cm paraesophageal lymph node is identified at the mid esophagus level. PLEURA: Detailed in lung section above. BONES: Unremarkable. OTHER FINDINGS: None. CT ABDOMEN AND PELVIS: LIVER: Unremarkable. No gross lesion or ductal dilatation. 3.7 x 3.2 cm cyst measures 14 Hounsfield units. However, inhomogeneous enhancement is appreciated throughout the liver suggestive of multifocal metastases. There are 2 peripheral convexities related to the low surface of right lobe liver at the right lobe anteriorly and laterally with associated calcifications and poorly enhancing foci further suspicious for metastatic disease. GALLBLADDER AND BILE DUCTS: Hyperintense material is layering at the dependent portion the gallbladder which is mildly distended, suggestive of milk of calcium. Underlying cholelithiasis is not excluded. No pericholecystic fluid collection or gross mural thickening. PANCREAS: The pancreas appears somewhat atrophic but is nonfocal. No pancreatic duct dilatation is grossly appreciable. SPLEEN: Inhomogeneous enhancement of the spleen may be a function of arterial phase of enhancement but metastatic disease is not excluded here either. ADRENALS: Right adrenal gland appears normal. At 1.5 cm nodule is seen at the medial limb of the left adrenal gland which is nonspecific. Follow-up MRI without contrast may be performed to exclude potential malignancy here. KIDNEYS AND URETERS: Unremarkable. No hydronephrosis. No solid mass. VASCULATURE: Limited dilatation of distal abdominal aorta is appreciate up to 2.7 cm diminishing proximal to the bifurcation. BOWEL: Sigmoid diverticulosis identified without diverticulitis. Limited diverticulosis of the hepatic flexure is identified also appearing nonacute. No obstruction. No gross mural thickening. APPENDIX: Not identified however there is no CT evidence to suggest appendicitis. PERITONEUM: Unremarkable. No free fluid. No free air. LYMPH NODES: Unremarkable. No enlarged lymph nodes. BLADDER: Unremarkable. REPRODUCTIVE: The prostate gland is enlarged. BONES: No acute fracture. OTHER FINDINGS: Tiny umbilical hernia is identified containing only fat. IMPRESSION: 1. Interval mildly large right pneumothorax identified with trace right pleural effusion remaining. 2. The right lower lobe is completely atelectatic with partial atelectasis affecting the right middle lobe as well. The right lower lobe bronchus remains not identified and a mass at the right hilum approximating dislocation is in question once again. Mediastinal lymphadenopathy is again appreciated well thus probable mild bilateral hilar lymphadenopathy. 3. Two tiny nodules in the left lower lobe. 4. Metastatic changes are likely infiltrated throughout the liver with metastasis to the spleen not completely excluded. Stable left lobe hepatic cyst. Please see discussion above. 5. Milk of calcium layers in the gallbladder. 6. 1.5 cm left adrenal nodule. Follow-up MRI may be useful for further characterization. 7. Sigmoid an hepatic flexure diverticulosis without diverticulitis. 8. Enlarged prostate gland.
[2017-05-17] MEDS: levoFLOXacin 750 mg in D5W 750 MG/150 ML BAG IVPB SCH (09:08)
[2017-05-17 10:05] LABS: ARTERIAL BLOOD GAS HCO3 29.8 mmol/L (21-28); ARTERIAL BLOOD GAS O2 CAPACITY 18.2 mL/dl (16-24); ARTERIAL BLOOD GAS O2 CONTENT 17.6 ML/dl (15-23); ARTERIAL BLOOD GAS PH 7.35 (7.35-7.45); ARTERIAL BLOOD HGB O2 SAT 93.9 % (95.0-98.0); CARBOXYHEMOGLOBIN 1.5 % (0.5-1.5); HHB 3.3 % (0-5); METHEMOGLOBIN 1.3 % (0.0-3.0)
--- NOTE | 2017-05-17 10:05 | RAD ---
HISTORY: On NC trial COMPARISON: 05/17/2017 FINDINGS: LUNGS: Right basal consolidation - atelectasis and or infiltrate suggested. The right chest tube tip at mid right lung zone just above the right basal consolidation is as before. Right lateral subcutaneous emphysematous changes and small right basal similar-appearing pneumothorax possible. Prior history referenced trapped right lung Right apical small pneumothorax possible - no change in appearance perceived. No mediastinal shift. PLEURA: As above CARDIOVASCULAR: Cardiomegaly. Aortic knob arteriovascular prominent calcification OSSEOUS STRUCTURES: No significant abnormalities. VISUALIZED UPPER ABDOMEN: Normal. OTHER FINDINGS: None. IMPRESSION: Right chest tube tip position change. Right basal consolidation with possible tiny right basal pneumothorax (and prior history of trapped lung) ; lateral right subcutaneous emphysema similar-appearing. Small less than 10 percent right apical pneumothorax cannot be excluded-no interval change here perceived.
--- NOTE | 2017-05-17 11:04 | CP.PCM.PN ---
Subjective - Date & Time of Evaluation Date of Evaluation: 05/17/17 Time of Evaluation: 11:00 - Subjective Subjective: General Surgery Progress Note For Dr. Morales PT S&E at bedside. JESSICA. Patient is on CPAP, saturating well. Right chest tube output 120cc sanguineous output since insertion. CXR improvement compared to last CXR Objective - Vital Signs/Intake and Output Vital Signs (last 24 hours): Temp Pulse Resp BP Pulse Ox 98.2 F 94 H 26 H 104/66 95 05/17/17 04:00 05/17/17 08:10 05/17/17 04:00 05/17/17 04:00 05/17/17 04:00 Intake and Output: 05/17/17 05/17/17 06:59 18:59 Intake Total 100 Output Total 510 Balance -410 - Medications Medications: Current Medications Albuterol/Ipratropium (Duoneb 3 Mg/0.5 Mg (3 Ml) Ud) 3 ml IH Q4H [facility] Last Admin: 05/17/17 08:09 Dose: 3 ml Atorvastatin Calcium (Lipitor) 40 mg PO DAILY [facility] Last Admin: 05/17/17 09:09 Dose: 40 mg Heparin Sodium (Porcine) (Heparin) 5,000 units SC Q8H [facility] PRN Reason: Protocol Last Admin: 05/17/17 05:06 Dose: 5,000 units Levofloxacin/Dextrose (Levaquin 750mg) 750 mg in 150 mls @ 100 mls/hr IVPB DAILY [facility] Last Admin: 05/17/17 09:08 Dose: 100 mls/hr Levetiracetam (Keppra) 500 mg PO DAILY [facility] Last Admin: 05/17/17 09:09 Dose: 500 mg Methylprednisolone (Solu-Medrol) 40 mg IVP Q8H [facility] Last Admin: 05/17/17 08:51 Dose: 40 mg Pantoprazole Sodium (Protonix Inj) 40 mg IVP DAILY [facility] Last Admin: 05/17/17 09:08 Dose: 40 mg - Labs Labs: 05/17/17 06:30 05/17/17 06:30 PT 11.4 Seconds (9.9-11.8) 05/16/17 11:04 INR 1.06 (0.93-1.08) 05/16/17 11:04 APTT 27.6 Seconds (23.7-30.8) 05/16/17 11:04 - Constitutional Appears: Non-toxic - Head Exam Head Exam: NORMAL INSPECTION - Eye Exam Eye Exam: EOMI, Normal appearance - ENT Exam ENT Exam: Mucous Membranes Moist - Neck Exam Neck Exam: Full ROM - Respiratory Exam Respiratory Exam: Accessory Muscle Use, NORMAL BREATHING PATTERN. absent: Respiratory Distress Additional comments: Patient is on BiPAP - Cardiovascular Exam Cardiovascular Exam: REGULAR RHYTHM, +S1, +S2. absent: Bradycardia, Tachycardia - GI/Abdominal Exam GI & Abdominal Exam: Soft. absent: Guarding, Rigid, Tenderness, Rebound - Extremities Exam Extremities Exam: Full ROM, Normal Inspection. absent: Pedal Edema - Neurological Exam Neurological Exam: Alert, Awake, Oriented x3 - Psychiatric Exam Psychiatric exam: Normal Mood - Skin Skin Exam: Dry, Intact, Normal Color, Warm Assessment and Plan - Assessment and Plan (Free Text) Assessment: 81M w/ Right Pneumothorax Plan: CT placed at bedside yesterday, CT to suction Daily CXR case d/w Dr. Morales c/w pain management c/w with ventilation settings per respiratory therapy, per ICU team c/w current medical management Jil Martin, DO PGY1
--- NOTE | 2017-05-17 11:59 | CON ---
PULMONARY CONSULTATION REASON FOR CONSULTATION: Pleural effusion. REFERRING PHYSICIAN: Dakota Villa MD HISTORY OF PRESENT ILLNESS: History is obtained via extensive discussion with the medical records auditor. I have also discussed the case with the and daughter at length. I have also reviewed the chart at length. The patient is an 81-year-old male, with past medical history significant for chronic obstructive disease, significant cerebrovascular accident in the past, chronic dysphagia, who presents to [facility] with worsening shortness of breath for one day. Apparently, a visiting nurse went to the see the patient yesterday. The visiting nurse found the patient to be short of breath and with a low pulse oximetry. She then sent the patient to the emergency room for additional evaluation and treatment. As above, the patient did present with shortness of breath. The shortness of breath is improved/decreased this morning. The also states that her has a chronic cough with minimal sputum production. There is no history of chest pain, coughing up of blood or chest pain - made worse with deep respirations. There is no history of temperatures, chills or infectious exposure. There is no history of night sweats. There is a history of weight loss with decreased appetite as of recent. No history of leg or calf pains. No history of syncope or diaphoresis. No history of recent travel or trauma. REVIEW OF SYSTEMS: No history of nausea, vomiting or diarrhea. No acute urinary symptoms. No new neurological or musculoskeletal complaints. Rest of review of systems is negative. ALLERGIES: PENICILLIN. SOCIAL HISTORY: Positive for tobacco and negative for alcohol. FAMILY HISTORY: No inheritable diseases. HOME MEDICATIONS: Include Mobic, Pulmicort, simvastatin, omeprazole, metoprolol, Keppra, Ativan, Vasotec, Lexapro. PHYSICAL EXAMINATION: GENERAL: The patient is mildly short of breath this morning, but in no acute distress. VITAL SIGNS: Temperature 98.2, pulse is 91, respirations 20/22, blood pressure 104/66. Oxygen saturation on BiPAP is 95%. HEENT: Normocephalic and atraumatic. NECK: No JVD. CARDIOVASCULAR: Systolic ejection murmur at the lower left sternal border. No S3 gallop. LUNGS: Decreased breath sounds at the bases (right worse than left). Scattered loose rhonchi. No wheezing. EXTREMITIES: Mild edema. No cyanosis, no clubbing. Calves are nontender to palpation. GASTROINTESTINAL: Abdomen is soft and nontender, nondistended. Bowel sounds are positive. SKIN: No acute rash. +right chest tube in place. NEUROLOGIC: Limited at the present time. CURRENT LABORATORY DATA: Chest x-ray was done this morning and reviewed. No significant right pneumothorax is identified. There is atelectasis/infiltrate noted at the right base. CBC: White count 7.1, hemoglobin 12.8, hematocrit 40.3, and platelets of 184. Arterial blood gas was done on BiPAP yesterday. Results are: pH 7.34, pCO2 of 63, PO2 of 97. Complete metabolic profile: Chloride 95, carbon dioxide 34, BUN 29, glucose 143, AST 81, ALT 86. Rest of the metabolic profile is within normal limits. CAT scan of the chest was done on 05/16/2017. There is a large right pleural effusion noted with adjacent atelectasis. There appears to be increased right hilar adenopathy. There are also multiple low attenuation lesions scattered throughout the hepatic parenchyma, possibly suggestive of metastatic deposits. IMPRESSION: 1. Large right pleural effusion, status post thoracentesis. 2. Right pneumothorax, status post chest tube insertion. 3. Chronic obstructive pulmonary disease. 4. Acute bronchospasm. 5. Respiratory failure. 6. Mild anemia. 7. Rule out metastatic disease. PLAN: Again, I did discuss the case with the and daughter at length. I have also discussed the case with the medical records auditor at length. Apparently, a visiting nurse went to see the patient yesterday. The visiting nurse found the patient to be short of breath with oxygen desaturation. The nurse then sent the patient to the emergency room for additional evaluation. On initial chest x-ray, there was a large right pleural effusion noted. The patient did undergo a thoracentesis. After the procedure, a pneumothorax was found, and a chest tube was subsequently placed. I did review the CAT scan of the chest. As above, the CAT scan revealed a right pleural effusion with adjacent atelectasis. The CAT scan also revealed probable right hilar adenopathy, along with suspicious liver lesions. Dr. Fabio Monzon has been called on the case for possible liver biopsy. Pleural fluid results are also pending. On physical exam, the patient is in mild bronchospasm. I will continue the current nebulizer treatments and intravenous steroids for now. A second CAT scan was done last night. Official results are pending, and I will discuss the CAT scan with radiology this morning. Clinical status of the patient has improved--- compared to the initial presentation. However, the future status/prognosis of this patient remains very very guarded. I did discuss the above with Dr. Villa at length. I will also discuss the above with the entire ICU team in the next few moments. Thank you very much for this pulmonary consultation. Herb Prieto MD MTDD
--- NOTE | 2017-05-17 14:46 | CP.CCUPN ---
<DEB VALLE - Last Filed: 05/17/17 14:35> CCU Subjective - Physician Review Subjective (Free Text): 05/17/17 14:35 Patient seen and assessed at bedside. Patient reports that his previous abdominal pain and shortness of breath have improved somewhat but has not fully resolved. He does still report some congestion in his upper airways. Per nursing , no acute events requiring intervention happened overnight. Patient denies any headache, changes in his vision, chest pain, abdominal pain, N/V, diarrhea or any burning with urination. CCU Objective - Vital Signs / Intake & Output Intake and Output (Last 8hrs): Intake & Output 05/16/17 05/17/17 05/17/17 22:59 06:59 14:59 Intake Total 100 0 Output Total 100 410 Balance 0 -410 Intake: IV 100 Right Antecubital 100 Oral 0 Output: Chest Tube Drainage 110 Right Mid-Axillary Chest 110 Urine 100 300 Urine, Voided 100 300 Other: # Bowel Movements 0 - Physical Exam Head: Positive for: Atraumatic, Normocephalic Pupils: Positive for: PERRL Extroacular Muscles: Positive for: EOMI Conjunctiva: Positive for: Normal Mouth: Positive for: Moist Mucous Membranes Pharnyx: Positive for: ERYTHEMA Nose (Internal): Positive for: Clear Mucous Neck: Positive for: Normal Range of Motion, Trachea Midline. Negative for: Meningeal Signs, JVD Respiratory/Chest: Positive for: Tachypneic, Other (Crackles throughout entire lung field). Negative for: Clear to Auscultation (Decreased breath sounds on the R), Respiratory Distress, Accessory Muscle Use Cardiovascular: Positive for: Normal S1, S2, Tachycardic. Negative for: Murmurs , Irregular Rhythm Abdomen: Positive for: Normal Bowel Sounds. Negative for: Tenderness, Distention, Peritoneal Signs Upper Extremity: Positive for: Capillary Refill < 2s. Negative for: Cyanosis, Edema Lower Extremity: Positive for: Edema (+2 pitting edema in right lower extremity , trace edema in left lower extremity), NORMAL PULSES. Negative for: CALF TENDERNESS Neurological: Positive for: GCS=15, Other (right sided paralysis and right facial droop s/p cva) Skin: Positive for: Warm, Dry, Normal Color. Negative for: Rashes Psychiatric: Positive for: Alert, Oriented x 3, Normal Insight, Normal Concentration - Medications Active Medications: Active Medications Generic Name Dose Route Start Last Admin Trade Name Autumn PRN Reason Stop Dose Admin Albuterol/Ipratropium 3 ml 05/16/17 13:15 05/17/17 11:56 Duoneb 3 Mg/0.5 Mg (3 Ml) Ud IH 3 ml Q4H MIYA Administration Atorvastatin Calcium 40 mg 05/17/17 10:00 05/17/17 09:09 Lipitor PO 40 mg DAILY MIYA Administration Heparin Sodium (Porcine) 5,000 units 05/16/17 13:15 05/17/17 05:06 Heparin SC 5,000 units Q8H MIYA Administration Protocol Levofloxacin/Dextrose 750 mg in 150 mls @ 100 mls/hr 05/17/17 10:00 05/17/17 09:08 Levaquin 750mg IVPB 100 mls/hr DAILY MIYA Administration Levetiracetam 500 mg 05/17/17 10:00 05/17/17 09:09 Keppra PO 500 mg DAILY MIYA Administration Methylprednisolone 40 mg 05/17/17 00:01 05/17/17 08:51 Solu-Medrol IVP 40 mg Q8H MIYA Administration Pantoprazole Sodium 40 mg 05/16/17 13:15 05/17/17 09:08 Protonix Inj IVP 40 mg DAILY MIYA Administration - Patient Studies Lab Studies: Microbiology Studies 05/16/17 17:00 Body Fluid Culture - Preliminary Body Fluid - Lung-Right 05/16/17 14:30 Urine Culture - Final Urine No Growth (<1,000 CFU/ML) Lab Studies 05/17/17 05/17/17 05/17/17 Range/Units 09:57 06:30 06:30 WBC 7.1 D (4.5-11.0) 10^3/ul RBC 4.32 (3.5-6.1) 10^6/uL Hgb 12.8 L (14.0-18.0) g/dL Hct 40.3 L (42.0-52.0) % MCV 93.3 (80.0-105.0) fl MCH 29.6 (25.0-35.0) pg MCHC 31.8 (31.0-37.0) g/dl RDW 13.1 (11.5-14.5) % Plt Count 184 (120.0-450.0) 10^3/uL MPV 10.6 (7.0-11.0) fl Gran % 87.7 H (50.0-68.0) % Lymph % (Auto) 8.4 L (22.0-35.0) % Lamar % (Auto) 3.9 (1.0-6.0) % Eos % (Auto) 0.0 L (1.5-5.0) % Baso % (Auto) 0.0 (0.0-3.0) % Gran # 6.26 (1.4-6.5) Lymph # 0.6 L (1.2-3.4) Lamar # 0.3 (0.1-0.6) Eos # 0.0 (0.0-0.7) Baso # 0.00 (0.0-2.0) K/mm3 pCO2 54 H (35-45) mm/Hg pO2 72.0 L (80-100) mm/Hg HCO3 29.8 H (21-28) mmol/L ABG pH 7.35 (7.35-7.45) ABG Total CO2 31.5 H (22-28) mmol.L ABG O2 Saturation 96.6 (95-98) % ABG O2 Content 17.6 (15-23) ML/dl ABG Base Excess 3.0 (-2.0-3.0) mmol/L ABG Hemoglobin 13.3 (11.7-17.4) g/dL ABG Carboxyhemoglobin 1.5 (0.5-1.5) % POC ABG HHb (Measured) 3.3 (0-5) % ABG Methemoglobin 1.3 (0.0-3.0) % ABG O2 Capacity 18.2 (16-24) mL/dl Hgb O2 Saturation 93.9 L (95.0-98.0) % FiO2 40.0 % Sodium 140 (132-148) mmol/L Potassium 4.4 (3.6-5.0) mmol/L Chloride 95 L (98-107) mmol/L Carbon Dioxide 34 H (21-33) mmol/L Anion Gap 15 (10-20) BUN 29 H (7-21) mg/dL Creatinine 0.7 (0.5-1.4) mg/dL Est GFR ( Amer) > 60 Est GFR (Non-Af Amer) > 60 Random Glucose 143 H (70-110) mg/dL Calcium 9.1 (8.4-10.5) mg/dL Total Bilirubin 0.4 (0.2-1.3) mg/dL AST 81 H (17-59) U/L ALT 86 H (7-56) U/L Alkaline Phosphatase 93 (38-126) U/L C-React Prot High Sens (1.00-3.00) mg/L Total Protein 7.1 (5.8-8.3) g/dL Albumin 3.6 (3.0-4.8) g/dL Globulin 3.5 gm/dL Albumin/Globulin Ratio 1.0 L (1.1-1.8) Procalcitonin (0.19-0.49) NG/ML Urine Color (YELLOW) Urine Appearance (CLEAR) Urine pH (4.7-8.0) Ur Specific [place] (1.005-1.035) Urine Protein (<30 mg/dL) mg/dL Urine Glucose (UA) (NEGATIVE) mg/dL Urine Ketones (NEGATIVE) mg/dL Urine Blood (NEGATIVE) Urine Nitrate (NEGATIVE) Urine Bilirubin (NEGATIVE) Urine Urobilinogen (<1 E.U./dL) E.U./dL Ur Leukocyte Esterase (NEGATIVE) Morales/uL Urine RBC (0-2) /hpf Urine WBC (0-6) /hpf Ur Epithelial Cells (0-5) /hpf Urine Bacteria (NEG) Hyaline Casts /hpf Fluid Source Fluid Appearance (CLEAR) Fluid WBC (0.0-300.0) /uL Fluid RBC (0.0-0.0) /uL Fluid Tot Cell Count (0-0) Fluid Neutrophils (0-0) % Fluid Lymphocytes (0-0) % Fld Monocyte/Macrophag Fluid Comment Pleural pH 05/16/17 05/16/17 05/16/17 Range/Units 17:00 17:00 14:30 WBC (4.5-11.0) 10^3/ul RBC (3.5-6.1) 10^6/uL Hgb (14.0-18.0) g/dL Hct (42.0-52.0) % MCV (80.0-105.0) fl MCH (25.0-35.0) pg MCHC (31.0-37.0) g/dl RDW (11.5-14.5) % Plt Count (120.0-450.0) 10^3/uL MPV (7.0-11.0) fl Gran % (50.0-68.0) % Lymph % (Auto) (22.0-35.0) % Lamar % (Auto) (1.0-6.0) % Eos % (Auto) (1.5-5.0) % Baso % (Auto) (0.0-3.0) % Gran # (1.4-6.5) Lymph # (1.2-3.4) Lamar # (0.1-0.6) Eos # (0.0-0.7) Baso # (0.0-2.0) K/mm3 pCO2 (35-45) mm/Hg pO2 (80-100) mm/Hg HCO3 (21-28) mmol/L ABG pH (7.35-7.45) ABG Total CO2 (22-28) mmol.L ABG O2 Saturation (95-98) % ABG O2 Content (15-23) ML/dl ABG Base Excess (-2.0-3.0) mmol/L ABG Hemoglobin (11.7-17.4) g/dL ABG Carboxyhemoglobin (0.5-1.5) % POC ABG HHb (Measured) (0-5) % ABG Methemoglobin (0.0-3.0) % ABG O2 Capacity (16-24) mL/dl Hgb O2 Saturation (95.0-98.0) % FiO2 % Sodium (132-148) mmol/L Potassium (3.6-5.0) mmol/L Chloride (98-107) mmol/L Carbon Dioxide (21-33) mmol/L Anion Gap (10-20) BUN (7-21) mg/dL Creatinine (0.5-1.4) mg/dL Est GFR ( Amer) Est GFR (Non-Af Amer) Random Glucose (70-110) mg/dL Calcium (8.4-10.5) mg/dL Total Bilirubin (0.2-1.3) mg/dL AST (17-59) U/L ALT (7-56) U/L Alkaline Phosphatase (38-126) U/L C-React Prot High Sens (1.00-3.00) mg/L Total Protein (5.8-8.3) g/dL Albumin (3.0-4.8) g/dL Globulin gm/dL Albumin/Globulin Ratio (1.1-1.8) Procalcitonin (0.19-0.49) NG/ML Urine Color Yellow (YELLOW) Urine Appearance Clear (CLEAR) Urine pH 6.0 (4.7-8.0) Ur Specific [place] 1.020 (1.005-1.035) Urine Protein Trace H (<30 mg/dL) mg/dL Urine Glucose (UA) Negative (NEGATIVE) mg/dL Urine Ketones Negative (NEGATIVE) mg/dL Urine Blood Negative (NEGATIVE) Urine Nitrate Negative (NEGATIVE) Urine Bilirubin Negative (NEGATIVE) Urine Urobilinogen 0.2 (<1 E.U./dL) E.U./dL Ur Leukocyte Esterase Small H (NEGATIVE) Morales/uL Urine RBC 0 - 2 (0-2) /hpf Urine WBC 0 - 2 (0-6) /hpf Ur Epithelial Cells 3 - 4 (0-5) /hpf Urine Bacteria Trace (NEG) Hyaline Casts 0 - 2 /hpf Fluid Source Pleural/thoracentesi Fluid Appearance Bloody (CLEAR) Fluid WBC 2248.0 H (0.0-300.0) /uL Fluid RBC 063927.0 H (0.0-0.0) /uL Fluid Tot Cell Count 100 H (0-0) Fluid Neutrophils 7.9 H (0-0) % Fluid Lymphocytes 92.1 H (0-0) % Fld Monocyte/Macrophag TEST NOT PERFORMED Fluid Comment Cloudy Pleural pH 8.0 05/16/17 05/16/17 Range/Units 12:44 12:44 WBC (4.5-11.0) 10^3/ul RBC (3.5-6.1) 10^6/uL Hgb (14.0-18.0) g/dL Hct (42.0-52.0) % MCV (80.0-105.0) fl MCH (25.0-35.0) pg MCHC (31.0-37.0) g/dl RDW (11.5-14.5) % Plt Count (120.0-450.0) 10^3/uL MPV (7.0-11.0) fl Gran % (50.0-68.0) % Lymph % (Auto) (22.0-35.0) % Lamar % (Auto) (1.0-6.0) % Eos % (Auto) (1.5-5.0) % Baso % (Auto) (0.0-3.0) % Gran # (1.4-6.5) Lymph # (1.2-3.4) Lamar # (0.1-0.6) Eos # (0.0-0.7) Baso # (0.0-2.0) K/mm3 pCO2 (35-45) mm/Hg pO2 (80-100) mm/Hg HCO3 (21-28) mmol/L ABG pH (7.35-7.45) ABG Total CO2 (22-28) mmol.L ABG O2 Saturation (95-98) % ABG O2 Content (15-23) ML/dl ABG Base Excess (-2.0-3.0) mmol/L ABG Hemoglobin (11.7-17.4) g/dL ABG Carboxyhemoglobin (0.5-1.5) % POC ABG HHb (Measured) (0-5) % ABG Methemoglobin (0.0-3.0) % ABG O2 Capacity (16-24) mL/dl Hgb O2 Saturation (95.0-98.0) % FiO2 % Sodium (132-148) mmol/L Potassium (3.6-5.0) mmol/L Chloride (98-107) mmol/L Carbon Dioxide (21-33) mmol/L Anion Gap (10-20) BUN (7-21) mg/dL Creatinine (0.5-1.4) mg/dL Est GFR ( Amer) Est GFR (Non-Af Amer) Random Glucose (70-110) mg/dL Calcium (8.4-10.5) mg/dL Total Bilirubin (0.2-1.3) mg/dL AST (17-59) U/L ALT (7-56) U/L Alkaline Phosphatase (38-126) U/L C-React Prot High Sens > 15.00 H (1.00-3.00) mg/L Total Protein (5.8-8.3) g/dL Albumin (3.0-4.8) g/dL Globulin gm/dL Albumin/Globulin Ratio (1.1-1.8) Procalcitonin 0.22 (0.19-0.49) NG/ML Urine Color (YELLOW) Urine Appearance (CLEAR) Urine pH (4.7-8.0) Ur Specific [place] (1.005-1.035) Urine Protein (<30 mg/dL) mg/dL Urine Glucose (UA) (NEGATIVE) mg/dL Urine Ketones (NEGATIVE) mg/dL Urine Blood (NEGATIVE) Urine Nitrate (NEGATIVE) Urine Bilirubin (NEGATIVE) Urine Urobilinogen (<1 E.U./dL) E.U./dL Ur Leukocyte Esterase (NEGATIVE) Morales/uL Urine RBC (0-2) /hpf Urine WBC (0-6) /hpf Ur Epithelial Cells (0-5) /hpf Urine Bacteria (NEG) Hyaline Casts /hpf Fluid Source Fluid Appearance (CLEAR) Fluid WBC (0.0-300.0) /uL Fluid RBC (0.0-0.0) /uL Fluid Tot Cell Count (0-0) Fluid Neutrophils (0-0) % Fluid Lymphocytes (0-0) % Fld Monocyte/Macrophag Fluid Comment Pleural pH Laboratory Results - last 24 hr 05/16/17 05/16/17 05/16/17 12:44 12:44 14:30 WBC RBC Hgb Hct MCV MCH MCHC RDW Plt Count MPV Gran % Lymph % (Auto) Lamar % (Auto) Eos % (Auto) Baso % (Auto) Gran # Lymph # Lamar # Eos # Baso # pCO2 pO2 HCO3 ABG pH ABG Total CO2 ABG O2 Saturation ABG O2 Content ABG Base Excess ABG Hemoglobin ABG Carboxyhemoglobin POC ABG HHb (Measured) ABG Methemoglobin ABG O2 Capacity Hgb O2 Saturation FiO2 Sodium Potassium Chloride Carbon Dioxide Anion Gap BUN Creatinine Est GFR ( Amer) Est GFR (Non-Af Amer) Random Glucose Calcium Total Bilirubin AST ALT Alkaline Phosphatase C-React Prot High Sens > 15.00 H Total Protein Albumin Globulin Albumin/Globulin Ratio Procalcitonin 0.22 Urine Color Yellow Urine Appearance Clear Urine pH 6.0 Ur Specific [place] 1.020 Urine Protein Trace H Urine Glucose (UA) Negative Urine Ketones Negative Urine Blood Negative Urine Nitrate Negative Urine Bilirubin Negative Urine Urobilinogen 0.2 Ur Leukocyte Esterase Small H Urine RBC 0 - 2 Urine WBC 0 - 2 Ur Epithelial Cells 3 - 4 Urine Bacteria Trace Hyaline Casts 0 - 2 Fluid Source Fluid Appearance Fluid WBC Fluid RBC Fluid Tot Cell Count Fluid Neutrophils Fluid Lymphocytes Fld Monocyte/Macrophag Fluid Comment Pleural pH 05/16/17 05/16/17 05/17/17 17:00 17:00 06:30 WBC 7.1 D RBC 4.32 Hgb 12.8 L Hct 40.3 L MCV 93.3 MCH 29.6 MCHC 31.8 RDW 13.1 Plt Count 184 MPV 10.6 Gran % 87.7 H Lymph % (Auto) 8.4 L Lamar % (Auto) 3.9 Eos % (Auto) 0.0 L Baso % (Auto) 0.0 Gran # 6.26 Lymph # 0.6 L Lamar # 0.3 Eos # 0.0 Baso # 0.00 pCO2 pO2 HCO3 ABG pH ABG Total CO2 ABG O2 Saturation ABG O2 Content ABG Base Excess ABG Hemoglobin ABG Carboxyhemoglobin POC ABG HHb (Measured) ABG Methemoglobin ABG O2 Capacity Hgb O2 Saturation FiO2 Sodium Potassium Chloride Carbon Dioxide Anion Gap BUN Creatinine Est GFR ( Amer) Est GFR (Non-Af Amer) Random Glucose Calcium Total Bilirubin AST ALT Alkaline Phosphatase C-React Prot High Sens Total Protein Albumin Globulin Albumin/Globulin Ratio Procalcitonin Urine Color Urine Appearance Urine pH Ur Specific [place] Urine Protein Urine Glucose (UA) Urine Ketones Urine Blood Urine Nitrate Urine Bilirubin Urine Urobilinogen Ur Leukocyte Esterase Urine RBC Urine WBC Ur Epithelial Cells Urine Bacteria Hyaline Casts Fluid Source Pleural/thoracentesi Fluid Appearance Bloody Fluid WBC 2248.0 H Fluid RBC 674905.0 H Fluid Tot Cell Count 100 H Fluid Neutrophils 7.9 H Fluid Lymphocytes 92.1 H Fld Monocyte/Macrophag TEST NOT PERFORMED Fluid Comment Cloudy Pleural pH 8.0 05/17/17 05/17/17 06:30 09:57 WBC RBC Hgb Hct MCV MCH MCHC RDW Plt Count MPV Gran % Lymph % (Auto) Lamar % (Auto) Eos % (Auto) Baso % (Auto) Gran # Lymph # Lamar # Eos # Baso # pCO2 54 H pO2 72.0 L HCO3 29.8 H ABG pH 7.35 ABG Total CO2 31.5 H ABG O2 Saturation 96.6 ABG O2 Content 17.6 ABG Base Excess 3.0 ABG Hemoglobin 13.3 ABG Carboxyhemoglobin 1.5 POC ABG HHb (Measured) 3.3 ABG Methemoglobin 1.3 ABG O2 Capacity 18.2 Hgb O2 Saturation 93.9 L FiO2 40.0 Sodium 140 Potassium 4.4 Chloride 95 L Carbon Dioxide 34 H Anion Gap 15 BUN 29 H Creatinine 0.7 Est GFR ( Amer) > 60 Est GFR (Non-Af Amer) > 60 Random Glucose 143 H Calcium 9.1 Total Bilirubin 0.4 AST 81 H ALT 86 H Alkaline Phosphatase 93 C-React Prot High Sens Total Protein 7.1 Albumin 3.6 Globulin 3.5 Albumin/Globulin Ratio 1.0 L Procalcitonin Urine Color Urine Appearance Urine pH Ur Specific [place] Urine Protein Urine Glucose (UA) Urine Ketones Urine Blood Urine Nitrate Urine Bilirubin Urine Urobilinogen Ur Leukocyte Esterase Urine RBC Urine WBC Ur Epithelial Cells Urine Bacteria Hyaline Casts Fluid Source Fluid Appearance Fluid WBC Fluid RBC Fluid Tot Cell Count Fluid Neutrophils Fluid Lymphocytes Fld Monocyte/Macrophag Fluid Comment Pleural pH Review of Systems - Review of Systems Review of Systems: Please refer to [facility] Critical Care Progress Note - Ventilator Checklist Head of Bed 30 Degrees: Yes PUD Prophalyxis: Yes DVT Prophylaxis: Yes - Extremities/Vascular Does the Patient have a Central Venous Catheter?: No Does the Patient need a Central Venous Catheter?: No Does the Patient have a Hanson Catheter?: No Does the Patient need a Hanson Catheter?: No - Prophylaxis GI Prophylaxis GI: PPI - Prophylaxis DVT Prophylaxis DVT: Heparin SQ Assessment/Plan - Assessment and Plan (Free Text) Assessment: 81 year old male with a past medical history significant for CVA with residual right sided weakness and reported right sided facial droop, COPD and emphysema who presented with shortness of breath. Patient was found to have large right sided pleural effusion and thoracocentesis drained 1.2L of pleural fluid. Patient subsequently developed a pneumothorax and a chest tube was placed. CT revealed the patient to have hepatic lesions suspicious for metastatic disease. Pleural fluid was found to be lymphocytic and to contain a large amount of blood. Plan: Neuro: -Patient with history of CVA 7.5 years ago with noted right sided paralysis with facial droop -Continue Keppra Pulm: -CT Chest showed mildly large right pneumothorax, for which a chest tube was placed on 05/16 -S/P thoracocentesis with removal of 1.2 liters of sero sanguineous fluid -Fluid analysis showed large amount of RBC's and with a lymphocytic predominance , suspicious for malignancy -Fluid cytology and further analysis pending -Continue with BiPAP with trials of NC at 4L as clinically indicated, with suctioning as needed -Continue Levaquin, IV Solu-Medrol and Duonebs -Maintain oxygen saturation above 92% -Surgery consulted for chest tube placement, all recommendations appreciated -Pulmonology consulted, all recommendations appreciated Cardio: -Started IV Lopressor PRN for tachycardia, while holding home PO Metoprolol -Continue Lipitor GI: -CT Chest/Abdomen/Pelvis showed hepatic lesions and widespread lymphadenopathy suspicious for malignancy -IR (Fabio Monzon) was consulted for liver biopsy, all recommendations appreciated -Will keep NPO until results of swallow evaluation is done Renal: -BUN/Creatinine stable at 24/0.7 -Continue to monitor and replenish electrolytes as needed with daily CMP's Heme/Onc: -H/H stable at 12.8/40.3 -Platelets stable at 184 -Will continue to monitor with daily CBC's ID: -Currently afebrile, normotensive, with no leukocytosis and with tachycardia -Blood, MRSA, and Pleural Fluid cultures, including AFB, pending -Will continue previously mentioned antibiotics Lines: -Continue all peripheral lines GI Prophylaxis: Protonix DVT Prophylaxis: SCD's Disposition: Disposition unconfirmed without tissue biopsy but assumed to be poor if malignancy is confirmed. Will continue ICU care. Patient seen and case discussed with attending, Dr. Tidwell. - Date & Time Date: 05/17/17 Time: 14:53 <Yaw DANG,Inamul H - Last Filed: 05/17/17 17:39> CCU Objective - Vital Signs / Intake & Output Vital Signs (Last 4 hours): Vital Signs Temp Pulse Resp BP Pulse Ox 05/17/17 16:00 97.7 F 05/17/17 14:40 127 H 24 92 L 05/17/17 14:30 126 H 32 H 91 L 05/17/17 14:20 126 H 34 H 92 L 05/17/17 14:10 128 H 36 H 93 L 05/17/17 14:00 127 H 28 H 122/77 90 L 05/17/17 13:50 127 H 39 H 92 L 05/17/17 13:40 128 H 29 H 92 L Intake and Output (Last 8hrs): Intake & Output 05/17/17 05/17/17 05/17/17 06:59 14:59 22:59 Intake Total 0 Output Total 410 Balance -410 Weight 152 lb Intake: Oral 0 Output: Chest Tube Drainage 110 Right Mid-Axillary Chest 110 Urine 300 Urine, Voided 300 Other: # Bowel Movements 0 - Medications Active Medications: Active Medications Generic Name Dose Route Start Last Admin Trade Name Freq PRN Reason Stop Dose Admin Albuterol/Ipratropium 3 ml 05/17/17 16:00 05/17/17 16:26 Duoneb 3 Mg/0.5 Mg (3 Ml) Ud IH 3 ml Q4 MIYA Administration Atorvastatin Calcium 40 mg 05/17/17 10:00 05/17/17 09:09 Lipitor PO 40 mg DAILY MIYA Administration Heparin Sodium (Porcine) 5,000 units 05/16/17 13:15 05/17/17 05:06 Heparin SC 5,000 units Q8H MIYA Administration Protocol Levofloxacin/Dextrose 750 mg in 150 mls @ 100 mls/hr 05/17/17 10:00 05/17/17 09:08 Levaquin 750mg IVPB 100 mls/hr DAILY MIYA Administration Levetiracetam 500 mg 05/17/17 10:00 05/17/17 09:09 Keppra PO 500 mg DAILY MIYA Administration Methylprednisolone 40 mg 05/17/17 00:01 05/17/17 08:51 Solu-Medrol IVP 40 mg Q8H MIYA Administration Metoprolol Tartrate 5 mg 05/17/17 22:00 Lopressor IVP Q12 MIYA Pantoprazole Sodium 40 mg 05/16/17 13:15 05/17/17 09:08 Protonix Inj IVP 40 mg DAILY MIYA Administration - Patient Studies Lab Studies: Microbiology Studies 05/16/17 17:00 Body Fluid Culture - Preliminary Body Fluid - Lung-Right 05/16/17 14:30 Urine Culture - Final Urine No Growth (<1,000 CFU/ML) Lab Studies 05/17/17 05/17/1717 Range/Units 09:57 06:30 06:30 WBC 7.1 D (4.5-11.0) 10^3/ul RBC 4.32 (3.5-6.1) 10^6/uL Hgb 12.8 L (14.0-18.0) g/dL Hct 40.3 L (42.0-52.0) % MCV 93.3 (80.0-105.0) fl MCH 29.6 (25.0-35.0) pg MCHC 31.8 (31.0-37.0) g/dl RDW 13.1 (11.5-14.5) % Plt Count 184 (120.0-450.0) 10^3/uL MPV 10.6 (7.0-11.0) fl Gran % 87.7 H (50.0-68.0) % Lymph % (Auto) 8.4 L (22.0-35.0) % Lamar % (Auto) 3.9 (1.0-6.0) % Eos % (Auto) 0.0 L (1.5-5.0) % Baso % (Auto) 0.0 (0.0-3.0) % Gran # 6.26 (1.4-6.5) Lymph # 0.6 L (1.2-3.4) Lamar # 0.3 (0.1-0.6) Eos # 0.0 (0.0-0.7) Baso # 0.00 (0.0-2.0) K/mm3 pCO2 54 H (35-45) mm/Hg pO2 72.0 L (80-100) mm/Hg HCO3 29.8 H (21-28) mmol/L ABG pH 7.35 (7.35-7.45) ABG Total CO2 31.5 H (22-28) mmol.L ABG O2 Saturation 96.6 (95-98) % ABG O2 Content 17.6 (15-23) ML/dl ABG Base Excess 3.0 (-2.0-3.0) mmol/L ABG Hemoglobin 13.3 (11.7-17.4) g/dL ABG Carboxyhemoglobin 1.5 (0.5-1.5) % POC ABG HHb (Measured) 3.3 (0-5) % ABG Methemoglobin 1.3 (0.0-3.0) % ABG O2 Capacity 18.2 (16-24) mL/dl Hgb O2 Saturation 93.9 L (95.0-98.0) % FiO2 40.0 % Sodium 140 (132-148) mmol/L Potassium 4.4 (3.6-5.0) mmol/L Chloride 95 L (98-107) mmol/L Carbon Dioxide 34 H (21-33) mmol/L Anion Gap 15 (10-20) BUN 29 H (7-21) mg/dL Creatinine 0.7 (0.5-1.4) mg/dL Est GFR ( Amer) > 60 Est GFR (Non-Af Amer) > 60 Random Glucose 143 H (70-110) mg/dL Calcium 9.1 (8.4-10.5) mg/dL Total Bilirubin 0.4 (0.2-1.3) mg/dL AST 81 H (17-59) U/L ALT 86 H (7-56) U/L Alkaline Phosphatase 93 (38-126) U/L Total Protein 7.1 (5.8-8.3) g/dL Albumin 3.6 (3.0-4.8) g/dL Globulin 3.5 gm/dL Albumin/Globulin Ratio 1.0 L (1.1-1.8) Procalcitonin (0.19-0.49) NG/ML Fluid Source Fluid Appearance (CLEAR) Fluid WBC (0.0-300.0) /uL Fluid RBC (0.0-0.0) /uL Fluid Tot Cell Count (0-0) Fluid Neutrophils (0-0) % Fluid Lymphocytes (0-0) % Fld Monocyte/Macrophag Fluid Comment Pleural pH 05/16/17 05/16/17 05/16/17 Range/Units 17:00 17:00 12:44 WBC (4.5-11.0) 10^3/ul RBC (3.5-6.1) 10^6/uL Hgb (14.0-18.0) g/dL Hct (42.0-52.0) % MCV (80.0-105.0) fl MCH (25.0-35.0) pg MCHC (31.0-37.0) g/dl RDW (11.5-14.5) % Plt Count (120.0-450.0) 10^3/uL MPV (7.0-11.0) fl Gran % (50.0-68.0) % Lymph % (Auto) (22.0-35.0) % Lamar % (Auto) (1.0-6.0) % Eos % (Auto) (1.5-5.0) % Baso % (Auto) (0.0-3.0) % Gran # (1.4-6.5) Lymph # (1.2-3.4) Lamar # (0.1-0.6) Eos # (0.0-0.7) Baso # (0.0-2.0) K/mm3 pCO2 (35-45) mm/Hg pO2 (80-100) mm/Hg HCO3 (21-28) mmol/L ABG pH (7.35-7.45) ABG Total CO2 (22-28) mmol.L ABG O2 Saturation (95-98) % ABG O2 Content (15-23) ML/dl ABG Base Excess (-2.0-3.0) mmol/L ABG Hemoglobin (11.7-17.4) g/dL ABG Carboxyhemoglobin (0.5-1.5) % POC ABG HHb (Measured) (0-5) % ABG Methemoglobin (0.0-3.0) % ABG O2 Capacity (16-24) mL/dl Hgb O2 Saturation (95.0-98.0) % FiO2 % Sodium (132-148) mmol/L Potassium (3.6-5.0) mmol/L Chloride (98-107) mmol/L Carbon Dioxide (21-33) mmol/L Anion Gap (10-20) BUN (7-21) mg/dL Creatinine (0.5-1.4) mg/dL Est GFR ( Amer) Est GFR (Non-Af Amer) Random Glucose (70-110) mg/dL Calcium (8.4-10.5) mg/dL Total Bilirubin (0.2-1.3) mg/dL AST (17-59) U/L ALT (7-56) U/L Alkaline Phosphatase (38-126) U/L Total Protein (5.8-8.3) g/dL Albumin (3.0-4.8) g/dL Globulin gm/dL Albumin/Globulin Ratio (1.1-1.8) Procalcitonin 0.22 (0.19-0.49) NG/ML Fluid Source Pleural/thoracentesi Fluid Appearance Bloody (CLEAR) Fluid WBC 2248.0 H (0.0-300.0) /uL Fluid RBC 334426.0 H (0.0-0.0) /uL Fluid Tot Cell Count 100 H (0-0) Fluid Neutrophils 7.9 H (0-0) % Fluid Lymphocytes 92.1 H (0-0) % Fld Monocyte/Macrophag TEST NOT PERFORMED Fluid Comment Cloudy Pleural pH 8.0 Laboratory Results - last 24 hr 05/16/17 05/16/17 05/16/17 12:44 17:00 17:00 WBC RBC Hgb Hct MCV MCH MCHC RDW Plt Count MPV Gran % Lymph % (Auto) Lamar % (Auto) Eos % (Auto) Baso % (Auto) Gran # Lymph # Lamar # Eos # Baso # pCO2 pO2 HCO3 ABG pH ABG Total CO2 ABG O2 Saturation ABG O2 Content ABG Base Excess ABG Hemoglobin ABG Carboxyhemoglobin POC ABG HHb (Measured) ABG Methemoglobin ABG O2 Capacity Hgb O2 Saturation FiO2 Sodium Potassium Chloride Carbon Dioxide Anion Gap BUN Creatinine Est GFR ( Amer) Est GFR (Non-Af Amer) Random Glucose Calcium Total Bilirubin AST ALT Alkaline Phosphatase Total Protein Albumin Globulin Albumin/Globulin Ratio Procalcitonin 0.22 Fluid Source Pleural/thoracentesi Fluid Appearance Bloody Fluid WBC 2248.0 H Fluid RBC 520848.0 H Fluid Tot Cell Count 100 H Fluid Neutrophils 7.9 H Fluid Lymphocytes 92.1 H Fld Monocyte/Macrophag TEST NOT PERFORMED Fluid Comment Cloudy Pleural pH 8.0 05/17/17 05/17/17 05/17/17 06:30 06:30 09:57 WBC 7.1 D RBC 4.32 Hgb 12.8 L Hct 40.3 L MCV 93.3 MCH 29.6 MCHC 31.8 RDW 13.1 Plt Count 184 MPV 10.6 Gran % 87.7 H Lymph % (Auto) 8.4 L Lamar % (Auto) 3.9 Eos % (Auto) 0.0 L Baso % (Auto) 0.0 Gran # 6.26 Lymph # 0.6 L Lamar # 0.3 Eos # 0.0 Baso # 0.00 pCO2 54 H pO2 72.0 L HCO3 29.8 H ABG pH 7.35 ABG Total CO2 31.5 H ABG O2 Saturation 96.6 ABG O2 Content 17.6 ABG Base Excess 3.0 ABG Hemoglobin 13.3 ABG Carboxyhemoglobin 1.5 POC ABG HHb (Measured) 3.3 ABG Methemoglobin 1.3 ABG O2 Capacity 18.2 Hgb O2 Saturation 93.9 L FiO2 40.0 Sodium 140 Potassium 4.4 Chloride 95 L Carbon Dioxide 34 H Anion Gap 15 BUN 29 H Creatinine 0.7 Est GFR ( Amer) > 60 Est GFR (Non-Af Amer) > 60 Random Glucose 143 H Calcium 9.1 Total Bilirubin 0.4 AST 81 H ALT 86 H Alkaline Phosphatase 93 Total Protein 7.1 Albumin 3.6 Globulin 3.5 Albumin/Globulin Ratio 1.0 L Procalcitonin Fluid Source Fluid Appearance Fluid WBC Fluid RBC Fluid Tot Cell Count Fluid Neutrophils Fluid Lymphocytes Fld Monocyte/Macrophag Fluid Comment Pleural pH Attending/Attestation - Attestation I have personally seen and examined this patient.: Yes I have fully participated in the care of the patient.: Yes I have reviewed all pertinent clinical information: Yes Notes (Text): 05/17/17 17:37 81 y/o M w/ SOB found to have a large R pleural effusion S/P thoracentesis and PTX. CT was placed and lung expansion achieved. Clinical breathing status mildly improved. Increased OWb at times . Off BIPAP for the most part today. O2 sat 90-92% Pleural fluid analysis suggests Malignancy . awaiting full studies and cytology. Family was spoken to about possible prognosis and DNR/DNI. They will speak with palliative care as well. On Abx for possible obstructive pna. dvt p cc time 65 min
--- NOTE | 2017-05-17 16:14 | HP ---
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 The patient was evaluated by his visiting nurse at home where he was found to be dyspneic and tachypneic. A pulse oximetry which was performed demonstrated an oxygen saturation of 78% and given his respiratory distress, he was advised to present to the emergency department immediately. Upon arrival to the emergency department, he was noted to be tachycardiac with a pulse of 122 and tachypneic with a respiratory rate of 38 and hypoxic with an oxygen saturation of 78% on room air. Imaging studies performed in the emergency department demonstrated a right pleural effusion with effective white-out of the right hemithorax. The patient was placed on the BiPAP and evaluated by Dr. Huerta of the ICU and was subsequently admitted to the ICU where he underwent a thoracentesis with removal of approximately 1.2 liters of serosanguineous fluid. The patient then had a chest tube inserted with a subsequent chest x-ray demonstrating satisfactory placement of the chest tube and resolution of the right-sided pleural effusion. Further imaging studies, which consisted of the CT of the chest demonstrated a large right pneumothorax with atelectasis of the right lower lobe and right middle lobe as well as bilateral hilar lymphadenopathy and incidental findings may represent metastatic changes throughout the liver. This morning on examination, the patient remains on BiPAP and it tachypneic, but otherwise, offers no complaints. PAST MEDICAL HISTORY: As per HPI. PAST SURGICAL HISTORY: As per HPI. MEDICATIONS: Simvastatin 40 mg p.o. daily, Omeprazole 40 mg p.o. daily, Lopressor 25 mg p.o. b.i.d., Keppra 500 mg p.o. daily, Enalapril 10 mg p.o. daily, and DuoNeb q. 4 hours as needed. ALLERGIES: PENICILLIN. FAMILY HISTORY: Noncontributory. SOCIAL HISTORY: The patient denies any toxic habits. REVIEW OF SYSTEMS: A 14-point review of systems is negative except as per HPI. PHYSICAL EXAMINATION: VITAL SIGNS: Temperature 98.2, pulse 106, blood pressure 104/66, respiratory rate 26, and oxygen saturation 95% on BiPAP. GENERAL: Frail elderly man appearing stated age, lying in bed, in moderate respiratory distress. HEENT: PERRL. EOMI. No scleral icterus. No conjunctivae pallor. NECK: Supple with full range of motion. LUNGS: Decreased breath sounds to the right hemithorax and bibasilar crackles are noted. CARDIOVASCULAR: Tachycardiac, normal S1 and S2. ABDOMEN: Soft, nontender, nondistended. EXTREMITIES: Trace lower extremity edema bilaterally. NEUROLOGIC: Awake, alert and oriented x3. Moving all extremities. LABORATORY DATA: WBC 7.1 with 87% neutrophils, hemoglobin 13, hematocrit 40, platelets 184. Sodium 140, potassium 4.4, chloride 95, bicarbonate 34, BUN 29, creatinine 0.7, glucose 143, AST 81, ALT 86. ASSESSMENT: The patient is an 81-year-old man with a past medical history of cerebrovascular accident with residual right-sided hemiparesis, hypertension, peripheral vascular disease, and chronic obstructive pulmonary disease who presented to [facility] for evaluation of a 1-2 week history of worsening dyspnea, decreased appetite, and weight loss and who is admitted to the ICU for impending respiratory failure secondary to a large right-sided pleural effusion of unclear etiology who is now status post thoracentesis with removal of 1.2 liters of serosanguineous fluid and status post right chest tube placement. PLAN: 1. Right-sided pleural effusion, etiology unclear; however, consider secondary to malignant effusion given findings on CT imaging. The patient is status post thoracentesis with removal of 1.2 liters of serosanguineous fluid with cultures and cytology pending. Input from Dr. Huerta and Dr. Prieto of Pulmonary and Critical Care Medicine noted and greatly appreciated. Continue with supplemental oxygen and BiPAP as needed. 2. Right pneumothorax. As above, the patient is status post placement of chest tube. We will continue to monitor respiratory status closely. Input from surgical team noted and appreciated. 3. Hepatic lesions. CT of the chest, abdomen and pelvis demonstrates hepatic lesions concerning for metastatic disease. Dr. Fabio Monzon of Interventional Radiology has been consulted for evaluation for possible biopsy especially given the hilar lymphadenopathy and the large pleural effusion, which may represent a malignant effusion. 4. Hyperlipidemia. Continue with Lipitor 40 mg p.o. daily. 5. History of CVA with residual right-sided hemiparesis. Continue with Keppra 500 mg p.o. daily for seizure prophylaxis. 6. Hypertension. BP remains stable off medications. We will continue to monitor hemodynamics and adjust antihypertensives as needed. 7. Prophylaxis. Continue with Protonix for GI prophylaxis and heparin for DVT prophylaxis. CODE STATUS: Full code. Dakota Villa MD MTDD
[2017-05-17] MEDS: Metoprolol 1 mg/ml Inj IVP SCH (20:30)
[2017-05-18] MEDS: Albuterol-Ipratrop 3 mg / 0.5 (3 ml) UD IH SCH ×5 (04:23→19:43)
[2017-05-18 07:22] LABS: GRAN # 9.83 (1.4-6.5); GRAN % 89.1 % (50.0-68.0); HEMATOCRIT 40.3 % (42.0-52.0); LYMPH # 0.7 (1.2-3.4); MEAN CELL VOLUME 93.1 fl (80.0-105.0); MEAN CORPUSCULAR HEMOGLOBIN 29.3 pg (25.0-35.0); MEAN CORPUSCULAR HGB CONC 31.5 g/dl (31.0-37.0); MEAN PLATELET VOLUME 10.6 fl (7.0-11.0); MONO # 0.5 (0.1-0.6); MONO % 4.9 % (1.0-6.0); RED CELL DISTRIBUTION WIDTH 13.2 % (11.5-14.5)
--- NOTE | 2017-05-18 07:31 | PN ---
DATE: 05/18/2017(615am--705am) SUBJECTIVE: The patient is currently on BiPAP. He is mildly short of breath, but in no acute distress. PHYSICAL EXAMINATION: VITAL SIGNS: Temperature is 99.0, pulse 88, respirations are 24, blood pressure 137/69. Oxygen saturation on BiPAP is 95%. HEENT: Normocephalic and atraumatic. NECK: No JVD. CARDIOVASCULAR: Systolic ejection murmur at the lower left sternal border. No S3 gallop. LUNGS: Decreased breath sounds at the bases. Less rhonchi. No wheezing. EXTREMITIES: Mild edema. No cyanosis. No clubbing. Calves are nontender to palpation. GASTROINTESTINAL: Abdomen is soft, nontender, and nondistended. Bowel sounds are positive. SKIN: No acute rash. Right chest tube in place. NEUROLOGIC: Limited at the present time. PERTINENT LABORATORY DATA: Chest x-ray was done this morning and reviewed. There is no apparent pneumothorax noted. There is decreased infiltrate/atelectasis at the right base. Arterial blood gas was done on nasal cannula yesterday. Results are; pH 7.35, pCO2 of 54, pO2 of 72. IMPRESSION: 1. Large right pleural effusion, status post thoracentesis. 2. Right pneumothorax-resolved. 3. Chronic obstructive pulmonary disease. 4. Acute bronchospasm. 5. Respiratory failure. 6. Mild anemia. 7. Rule out metastatic disease. PLAN: The patient appears comfortable this morning. He is mildly short of breath, but in no acute distress. He is currently on BiPAP. Oxygen saturation on BiPAP is 95%. I did discuss the case with the night nurse at length. The night nurse stated that the patient had pretty good night. The night nurse also stated that the patient is for probable liver biopsy this morning. I did review the last chest x-ray as above. The x-ray is improved-with resolving right pneumothorax, and increased aeration noted to the right base. On physical exam, there is mild bronchospasm noted. I will continue with the current nebulizer treatments and intervenous steroids for now. I will also add inhaled Mucomyst. The patient has had problems swallowing with a chronic cough for a long time. Palliative care consult with Rosa Isela Otoole has been ordered. Pleural fluid cytology is still pending. Clinical status of this patient is certainly improved-compared to the initial presentation. However, his future status/prognosis remains very guarded at best. I will discuss the above with the entire ICU team the next few moments. I will also discuss the above with Dr. Villa later this morning. Herb Prieto MD MTDD
--- NOTE | 2017-05-18 07:42 | RAD ---
PROCEDURE: CHEST RADIOGRAPH, 1 VIEW HISTORY: comparison COMPARISON: Portable chest 05/17/2017 9:22 a.m.. FINDINGS: Right chest tube unchanged in position. LUNGS: Patient's lower face obscures the bilateral pulmonary apices a mid to superior right pneumothorax not appreciated. There is no left pneumothorax. Persistent right basilar pneumothorax remains and is likely not changed in size in the interval, taking differences in positioning into account. Atelectasis or infiltrate remains at the right base as well with medial left basilar atelectasis or infiltrate present. PLEURA: Small bilateral pleural effusions appear to be be developing. CARDIOVASCULAR: Cardiomediastinal silhouette appears stable. OSSEOUS STRUCTURES: No significant abnormalities. VISUALIZED UPPER ABDOMEN: Normal. OTHER FINDINGS: Limited right chest wall emphysematous changes appear stable. IMPRESSION: A persistent right basilar pneumothorax is suggested with right chest tube not significantly changed in position. Bilateral basilar airspace disease evident. Limited bilateral pleural effusions appear to developing.
[2017-05-18 07:45] LABS: ALKALINE PHOSPHATASE 83 U/L (38-126); ALT/SGPT 109 U/L (7-56); AST/SGOT 93 U/L (17-59); BILIRUBIN,TOTAL 0.3 mg/dL (0.2-1.3); BLOOD UREA NITROGEN 33 mg/dL (7-21); CARBON DIOXIDE 37 mmol/L (21-33); CHLORIDE 96 mmol/L (98-107); GFR AFRICAN-AMERICAN > 60; GLUCOSE,RANDOM 137 mg/dL (70-110); POTASSIUM 4.1 mmol/L (3.6-5.0); SODIUM 142 mmol/L (132-148); TOTAL PROTEIN 6.8 g/dL (5.8-8.3)
[2017-05-18] MEDS: Acetylcysteine 20% Inhal Soln (4ml) IH SCH ×2 (08:20→19:43)
[2017-05-18] MEDS: Metoprolol 1 mg/ml Inj IVP SCH ×3 (08:29→23:07)
[2017-05-18] MEDS ORDERED: Lidocaine 1% Inj (20ml) ONE (09:22)
--- NOTE | 2017-05-18 09:50 | CP.PCM.CON ---
History of Present Illness - History of Present Illness History of Present Illness: Palliative consult requested by Dr Shauna Villa Reason: Goals of care/Advance care planning 81 year old male with history of CVA and right hemiparesis, PVD,COPD who presented with two week history of worsening dyspnea.He was tachypneic and tachycardic upon arrival to ED.Chest x ray showed right pleural effusion with white out of right hemothorax. Patient was transferred to ICU where torments was done with removal of 1.2 liters of sanguineous fluid. A chest tube was then placed. Subsequent CT scan showed large right pleural effusion and atelectasis of right lower/mid lobes,bilateral lymphadenopathy and lesions which were suspicious for metastatic disease in liver. The patient requires BIPAP intermittently. PMHx: CVA right hemiparesis, wheelchair dependent, PVD, HTN,HLD,COPD. Family History:Noncontributory Social History: Non smoker, no alcohol or drug use. , lives with spouse Advance Care Planning: The patient does not have an Advanced Directive. Review of Systems: As per HPI, otherwise negative Past Patient History - Infectious Disease Hx of Infectious Diseases: None - Past Medical History & Family History Past Medical History?: Yes - Past Social History Smoking Status: Former Smoker - CARDIAC Hx Peripheral Vascular Disease: Yes - PULMONARY Hx Chronic Obstructive Pulmonary Disease (COPD): No (family members "think") - NEUROLOGICAL HX Cerebrovascular Accident: Yes - HEENT Hx Cataracts: Yes - RENAL Hx Chronic Kidney Disease: No - ENDOCRINE/METABOLIC Hx Endocrine Disorders: No - HEMATOLOGICAL/ONCOLOGICAL Hx Blood Disorders: No - INTEGUMENTARY Hx Dermatological Problems: No - MUSCULOSKELETAL/RHEUMATOLOGICAL Hx Musculoskeletal Disorders: Yes Hx Falls: Yes (7 1/2 yrs ago) Hx Unsteady Gait: Yes - GASTROINTESTINAL Hx Gastrointestinal Disorders: No - GENITOURINARY/GYNECOLOGICAL Hx Genitourinary Disorders: No - PSYCHIATRIC Hx Psychophysiologic Disorder: No - SURGICAL HISTORY Hx Surgeries: No - ANESTHESIA Hx Anesthesia Reactions: No Hx Malignant Hyperthermia: No Meds Allergies/Adverse Reactions: Allergies Allergy/AdvReac Type Severity Reaction Status Date / Time ampicillin Allergy RASH Verified 05/16/17 10:41 influenza virus vaccine, Allergy RASH Verified 05/16/17 10:41 specific Penicillins Allergy RASH Verified 05/16/17 10:41 - Medications Medications: Current Medications Acetylcysteine (Acetylcysteine 20%) 4 ml IH BIDRESP [facility] Last Admin: 05/18/17 08:20 Dose: 4 ml Albuterol/Ipratropium (Duoneb 3 Mg/0.5 Mg (3 Ml) Ud) 3 ml IH Q4 [facility] Last Admin: 05/18/17 08:21 Dose: 3 ml Atorvastatin Calcium (Lipitor) 40 mg PO DAILY [facility] Last Admin: 05/17/17 09:09 Dose: 40 mg Heparin Sodium (Porcine) (Heparin) 5,000 units SC Q8H [facility] PRN Reason: Protocol Last Admin: 05/18/17 05:00 Dose: 5,000 units Levofloxacin/Dextrose (Levaquin 750mg) 750 mg in 150 mls @ 100 mls/hr IVPB DAILY [facility] Last Admin: 05/17/17 09:08 Dose: 100 mls/hr Levetiracetam (Keppra) 500 mg PO DAILY [facility] Methylprednisolone (Solu-Medrol) 40 mg IVP Q8H [facility] Last Admin: 05/18/17 00:00 Dose: 40 mg Metoprolol Tartrate (Lopressor) 5 mg IVP Q12 [facility] Last Admin: 05/18/17 08:29 Dose: 5 mg Pantoprazole Sodium (Protonix Inj) 40 mg IVP DAILY [facility] Last Admin: 05/17/17 09:08 Dose: 40 mg Physical Exam - Constitutional Appears: Cachectic, Chronically Ill - Head Exam Head Exam: NORMAL INSPECTION - Eye Exam Eye Exam: Normal appearance, PERRL - ENT Exam ENT Exam: Mucous Membranes Moist, Normal Oropharynx - Neck Exam Neck exam: Positive for: Normal Inspection - Respiratory Exam Respiratory Exam: Decreased Breath Sounds, Rhonchi, Wheezes Additional comments: right chest tube - Cardiovascular Exam Cardiovascular Exam: Tachycardia, +S1, +S2 - GI/Abdominal Exam GI & Abdominal Exam: Normal Bowel Sounds, Soft - Extremities Exam Extremities exam: Positive for: normal inspection, pedal pulses present - Back Exam Back exam: NORMAL INSPECTION - Neurological Exam Neurological exam: Alert - Skin Skin Exam: Dry, Warm Additional comments: sacral decubiti - Additional Findings Additional findings: Palliative performance scale rating 40 % Results - Vital Signs Recent Vital Signs: Last Vital Signs Temp 97.8 F 05/18/17 08:00 Pulse 106 H 05/18/17 08:40 Resp 31 H 05/18/17 08:40 BP 132/80 05/18/17 08:29 Pulse Ox 98 05/18/17 08:40 - Labs Result Diagrams: 05/19/17 07:15 05/19/17 07:15 Labs: Laboratory Results - last 24 hr 05/17/17 05/18/17 05/18/17 09:57 06:30 06:30 WBC 11.0 D RBC 4.33 Hgb 12.7 L Hct 40.3 L MCV 93.1 MCH 29.3 MCHC 31.5 RDW 13.2 Plt Count 181 MPV 10.6 Gran % 89.1 H Lymph % (Auto) 6.0 L Mcclain % (Auto) 4.9 Eos % (Auto) 0.0 L Baso % (Auto) 0.0 Gran # 9.83 H Lymph # 0.7 L Mcclain # 0.5 Eos # 0.0 Baso # 0.00 pCO2 54 H pO2 72.0 L HCO3 29.8 H ABG pH 7.35 ABG Total CO2 31.5 H ABG O2 Saturation 96.6 ABG O2 Content 17.6 ABG Base Excess 3.0 ABG Hemoglobin 13.3 ABG Carboxyhemoglobin 1.5 POC ABG HHb (Measured) 3.3 ABG Methemoglobin 1.3 ABG O2 Capacity 18.2 Hgb O2 Saturation 93.9 L FiO2 40.0 Sodium 142 Potassium 4.1 Chloride 96 L Carbon Dioxide 37 H Anion Gap 13 BUN 33 H Creatinine 0.7 Est GFR ( Amer) > 60 Est GFR (Non-Af Amer) > 60 Random Glucose 137 H Calcium 9.0 Total Bilirubin 0.3 AST 93 H ALT 109 H Alkaline Phosphatase 83 Total Protein 6.8 Albumin 3.4 Globulin 3.3 Albumin/Globulin Ratio 1.0 L Assessment & Plan - Assessment and Plan (Free Text) Assessment: 81 year old male with history of CVA,right hemiparesis, COPD, HTN admitted with respiratory failure, right pleural effusion, right pneumothrorax, s/p thoracentisis, right chest tube, incidental finding of liver lesion on CT s/p liver biopsy today, dysphagia. The patient is alert /pleasant. Offers no complaints. Patient's and daughter at bedside. Extensive discussion involving advance care planning ensued. The patient does not have an advance directive. The family is contemplating making patient DNR/DNI. Benefits and burdens of aggressive resuscitation with CPR/intubation explained in detail. Questions answered. Family nnot ready to make patient DNR/DNI at this time. Time spent with family in goals of care/advance care planning discussion , 40 minutes Plan: Advance care planning Palliative support - Date & Time Date: 05/18/17 Time: 15:00
[2017-05-18] MEDS: levETIRAcetam 500 mg/5ml UD cups PO SCH (10:11)
[2017-05-18] MEDS: levoFLOXacin 750 mg in D5W 750 MG/150 ML BAG IVPB SCH (10:11)
[2017-05-18] MEDS: MethylPREDNISolone 40 mg Vial IVP SCH ×4 (10:11→23:04)
--- NOTE | 2017-05-18 12:01 | CP.PCM.PN ---
Subjective - Date & Time of Evaluation Date of Evaluation: 05/18/17 Time of Evaluation: 05:30 - Subjective Subjective: SURGERY PROGRESS NOTE FOR DR. TALBOT 81M seen and examined at bedside. No acute events overnight. Objective - Vital Signs/Intake and Output Vital Signs (last 24 hours): Temp Pulse Resp BP Pulse Ox 97.8 F 104 H 21 142/78 94 L 05/18/17 08:00 05/18/17 09:35 05/18/17 09:35 05/18/17 09:35 05/18/17 09:35 Intake and Output: 05/18/17 05/18/17 06:59 18:59 Intake Total 0 125 Output Total 1050 Balance -1050 125 - Medications Medications: Current Medications Acetylcysteine (Acetylcysteine 20%) 4 ml IH BIDRESP [facility] Last Admin: 05/18/17 08:20 Dose: 4 ml Albuterol/Ipratropium (Duoneb 3 Mg/0.5 Mg (3 Ml) Ud) 3 ml IH Q4 [facility] Last Admin: 05/18/17 08:21 Dose: 3 ml Atorvastatin Calcium (Lipitor) 40 mg PO DAILY [facility] Last Admin: 05/18/17 10:12 Dose: 40 mg Heparin Sodium (Porcine) (Heparin) 5,000 units SC Q8H [facility] PRN Reason: Protocol Last Admin: 05/18/17 05:00 Dose: 5,000 units Levofloxacin/Dextrose (Levaquin 750mg) 750 mg in 150 mls @ 100 mls/hr IVPB DAILY [facility] Last Admin: 05/18/17 10:11 Dose: 100 mls/hr Levetiracetam (Keppra) 500 mg PO DAILY [facility] Last Admin: 05/18/17 10:11 Dose: 500 mg Methylprednisolone (Solu-Medrol) 40 mg IVP Q8H [facility] Last Admin: 05/18/17 10:11 Dose: 40 mg Metoprolol Tartrate (Lopressor) 5 mg IVP Q12 [facility] Last Admin: 05/18/17 10:12 Dose: Not Given Pantoprazole Sodium (Protonix Inj) 40 mg IVP DAILY [facility] Last Admin: 05/18/17 10:11 Dose: 40 mg - Labs Labs: 05/18/17 06:30 05/18/17 06:30 PT 11.4 Seconds (9.9-11.8) 05/16/17 11:04 INR 1.06 (0.93-1.08) 05/16/17 11:04 APTT 27.6 Seconds (23.7-30.8) 05/16/17 11:04
--- NOTE | 2017-05-18 13:17 | CP.CCUPN ---
<DEB VALLE - Last Filed: 05/18/17 12:52> CCU Subjective - Physician Review Subjective (Free Text): 05/18/17 13:20 Patient seen and assessed at bedside. No acute events overnight, per nursing. Patient denies any headache, changes in his vision, chest pain, abdominal pain, N/V, diarrhea or any burning with urination. CCU Objective - Vital Signs / Intake & Output Vital Signs (Last 4 hours): Vital Signs Pulse Resp BP Pulse Ox 05/18/17 10:00 79 05/18/17 09:35 104 H 21 142/78 94 L 05/18/17 09:30 88 22 132/78 93 L 05/18/17 09:25 80 23 134/86 95 05/18/17 09:05 88 28 H 136/76 98 Intake and Output (Last 8hrs): Intake & Output 05/17/17 05/18/17 05/18/17 22:59 06:59 14:59 Intake Total 0 125 Output Total 610 440 Balance -610 -440 125 Weight 147 lb Intake: IV 125 Oral 0 Output: Chest Tube Drainage 10 40 Right Mid-Axillary Chest 10 40 Urine 600 400 Urine, Voided 600 400 Other: # Bowel Movements 0 - Physical Exam Head: Positive for: Atraumatic, Normocephalic Pupils: Positive for: PERRL Extroacular Muscles: Positive for: EOMI Conjunctiva: Positive for: Normal Mouth: Positive for: Moist Mucous Membranes Pharnyx: Positive for: Normal Nose (Internal): Positive for: Clear Mucous Neck: Positive for: Normal Range of Motion, Trachea Midline. Negative for: Meningeal Signs, JVD Respiratory/Chest: Positive for: Tachypneic, Other (Crackles throughout entire lung field). Negative for: Clear to Auscultation (Decreased breath sounds on the R), Respiratory Distress, Accessory Muscle Use Cardiovascular: Positive for: Normal S1, S2, Tachycardic. Negative for: Murmurs , Irregular Rhythm Abdomen: Positive for: Normal Bowel Sounds. Negative for: Tenderness, Distention, Peritoneal Signs Upper Extremity: Positive for: Capillary Refill < 2s. Negative for: Cyanosis, Edema Lower Extremity: Positive for: Edema (+2 pitting edema in right lower extremity , trace edema in left lower extremity), NORMAL PULSES. Negative for: CALF TENDERNESS Neurological: Positive for: GCS=15, Other (right sided paralysis and right facial droop s/p cva) Skin: Positive for: Warm, Dry, Normal Color. Negative for: Rashes Psychiatric: Positive for: Alert, Oriented x 3, Normal Insight, Normal Concentration - Medications Active Medications: Active Medications Generic Name Dose Route Start Last Admin Trade Name Freq PRN Reason Stop Dose Admin Acetylcysteine 4 ml 05/18/17 08:00 05/18/17 08:20 Acetylcysteine 20% IH 4 ml BIDRESP MIYA Administration Albuterol/Ipratropium 3 ml 05/17/17 16:00 05/18/17 12:01 Duoneb 3 Mg/0.5 Mg (3 Ml) Ud IH 3 ml Q4 MIYA Administration Atorvastatin Calcium 40 mg 05/17/17 10:00 05/18/17 10:12 Lipitor PO 40 mg DAILY MIYA Administration Heparin Sodium (Porcine) 5,000 units 05/16/17 13:15 05/18/17 05:00 Heparin SC 5,000 units Q8H MIYA Administration Protocol Levofloxacin/Dextrose 750 mg in 150 mls @ 100 mls/hr 05/17/17 10:00 05/18/17 10:11 Levaquin 750mg IVPB 100 mls/hr DAILY MIYA Administration Levetiracetam 500 mg 05/18/17 10:00 05/18/17 10:11 Keppra PO 500 mg DAILY MIYA Administration Methylprednisolone 40 mg 05/17/17 00:01 05/18/17 10:11 Solu-Medrol IVP 40 mg Q8H MIYA Administration Metoprolol Tartrate 5 mg 05/17/17 22:00 05/18/17 10:12 Lopressor IVP Not Given Q12 MIYA Pantoprazole Sodium 40 mg 05/16/17 13:15 05/18/17 10:11 Protonix Inj IVP 40 mg DAILY MIYA Administration - Patient Studies Lab Studies: Microbiology Studies 05/16/17 16:20 MRSA Culture (Admit) - Final Nose MRSA NOT DETECTED 05/16/17 17:00 Body Fluid Culture - Preliminary Body Fluid - Lung-Right 05/16/17 14:30 Urine Culture - Final Urine No Growth (<1,000 CFU/ML) Lab Studies 05/18/17 05/18/17 Range/Units 06:30 06:30 WBC 11.0 D (4.5-11.0) 10^3/ul RBC 4.33 (3.5-6.1) 10^6/uL Hgb 12.7 L (14.0-18.0) g/dL Hct 40.3 L (42.0-52.0) % MCV 93.1 (80.0-105.0) fl MCH 29.3 (25.0-35.0) pg MCHC 31.5 (31.0-37.0) g/dl RDW 13.2 (11.5-14.5) % Plt Count 181 (120.0-450.0) 10^3/uL MPV 10.6 (7.0-11.0) fl Gran % 89.1 H (50.0-68.0) % Lymph % (Auto) 6.0 L (22.0-35.0) % [place] % (Auto) 4.9 (1.0-6.0) % Eos % (Auto) 0.0 L (1.5-5.0) % Baso % (Auto) 0.0 (0.0-3.0) % Gran # 9.83 H (1.4-6.5) Lymph # 0.7 L (1.2-3.4) [place] # 0.5 (0.1-0.6) Eos # 0.0 (0.0-0.7) Baso # 0.00 (0.0-2.0) K/mm3 Sodium 142 (132-148) mmol/L Potassium 4.1 (3.6-5.0) mmol/L Chloride 96 L (98-107) mmol/L Carbon Dioxide 37 H (21-33) mmol/L Anion Gap 13 (10-20) BUN 33 H (7-21) mg/dL Creatinine 0.7 (0.5-1.4) mg/dL Est GFR ( Amer) > 60 Est GFR (Non-Af Amer) > 60 Random Glucose 137 H (70-110) mg/dL Calcium 9.0 (8.4-10.5) mg/dL Total Bilirubin 0.3 (0.2-1.3) mg/dL AST 93 H (17-59) U/L ALT 109 H (7-56) U/L Alkaline Phosphatase 83 (38-126) U/L Total Protein 6.8 (5.8-8.3) g/dL Albumin 3.4 (3.0-4.8) g/dL Globulin 3.3 gm/dL Albumin/Globulin Ratio 1.0 L (1.1-1.8) Laboratory Results - last 24 hr 05/18/17 05/18/17 06:30 06:30 WBC 11.0 D RBC 4.33 Hgb 12.7 L Hct 40.3 L MCV 93.1 MCH 29.3 MCHC 31.5 RDW 13.2 Plt Count 181 MPV 10.6 Gran % 89.1 H Lymph % (Auto) 6.0 L [place] % (Auto) 4.9 Eos % (Auto) 0.0 L Baso % (Auto) 0.0 Gran # 9.83 H Lymph # 0.7 L [place] # 0.5 Eos # 0.0 Baso # 0.00 Sodium 142 Potassium 4.1 Chloride 96 L Carbon Dioxide 37 H Anion Gap 13 BUN 33 H Creatinine 0.7 Est GFR ( Amer) > 60 Est GFR (Non-Af Amer) > 60 Random Glucose 137 H Calcium 9.0 Total Bilirubin 0.3 AST 93 H ALT 109 H Alkaline Phosphatase 83 Total Protein 6.8 Albumin 3.4 Globulin 3.3 Albumin/Globulin Ratio 1.0 L Review of Systems - Review of Systems Review of Systems: Please refer to HPI Critical Care Progress Note - Ventilator Checklist PUD Prophalyxis: Yes DVT Prophylaxis: Yes - Extremities/Vascular Does the Patient have a Central Venous Catheter?: No Does the Patient need a Central Venous Catheter?: No Does the Patient have a Hanson Catheter?: No Does the Patient need a Hanson Catheter?: No - Prophylaxis GI Prophylaxis GI: PPI - Prophylaxis DVT Prophylaxis DVT: SCDs Assessment/Plan - Assessment and Plan (Free Text) Assessment: 81 year old male with a past medical history significant for CVA with residual right sided weakness and reported right sided facial droop, COPD and emphysema who presented with shortness of breath. Patient was found to have large right sided pleural effusion and thoracocentesis drained 1.2L of pleural fluid. Patient subsequently developed a pneumothorax and a chest tube was placed. CT revealed the patient to have hepatic lesions suspicious for metastatic disease. Pleural fluid was found to be lymphocytic and to contain a large amount of blood. Plan: Neuro: -Patient with history of CVA 7.5 years ago with noted right sided paralysis with facial droop -Continue Keppra Pulm: -CT Chest showed mildly large right pneumothorax, for which a chest tube was placed on 05/16 -Fluid analysis showed large amount of RBC's and with a lymphocytic predominance , suspicious for malignancy -Most recent Chest X-Ray showing persistent right basilar pneumothorax, bilateral basilar airspace disease and with limited bilateral pleural effusions -Fluid cytology and further analysis pending -Continue BiPAP with trials of NC at 4L as clinically indicated, with suctioning as needed -Continue Levaquin, IV Solu-Medrol, Mucomyst and Duonebs -Maintain oxygen saturation above 92% -Surgery consulted for chest tube placement, all recommendations appreciated -Pulmonology consulted, all recommendations appreciated Cardio: -Continue IV Lopressor PRN for tachycardia, while holding home PO Metoprolol -Continue Lipitor GI: -CT Chest/Abdomen/Pelvis showed hepatic lesions and widespread lymphadenopathy suspicious for malignancy -Biopsy of hepatic lesions pending -IR (Fabio Monzon) consulted for liver biopsy, all recommendations appreciated -[employer] recommends to give puree diet with extra gravy, and honey thick liquids, spooned Renal: -BUN/Creatinine stable at 33/0.7 -Continue to monitor and replenish electrolytes as needed with daily CMP's Heme/Onc: -H/H stable at 12.7/40.3 -Platelets stable at 181 -Will continue to monitor with daily CBC's ID: -Currently afebrile, normotensive, with no leukocytosis and with no tachycardia -Blood, MRSA, and Urine cultures with no growth after 48 hours -Pleural fluid gram stain and culture pending -Will continue previously mentioned antibiotics Lines: -Continue all peripheral lines GI Prophylaxis: Protonix DVT Prophylaxis: SCD's Disposition: Disposition unconfirmed without tissue biopsy but assumed to be poor if malignancy is confirmed. Patient transferred to remote telemetry. Patient seen and case discussed with attending, Dr. Tidwell. - Date & Time Date: 05/18/17 Time: 12:54 <Yaw DANG,Cierra H - Last Filed: 05/18/17 16:27> CCU Objective - Vital Signs / Intake & Output Vital Signs (Last 4 hours): Vital Signs Temp Pulse Resp BP Pulse Ox 05/18/17 16:00 98 F 116 H 20 125/75 95 Intake and Output (Last 8hrs): Intake & Output 05/18/17 05/18/17 05/18/17 06:59 14:59 22:59 Intake Total 0 365 Output Total 440 0 Balance -440 365 Weight 147 lb Intake: IV 125 Oral 0 240 Output: Chest Tube Drainage 40 Right Mid-Axillary Chest 40 Urine 400 0 Urine, Voided 400 0 Other: # Bowel Movements 0 0 - Medications Active Medications: Active Medications Generic Name Dose Route Start Last Admin Trade Name Freq PRN Reason Stop Dose Admin Acetylcysteine 4 ml 05/18/17 08:00 05/18/17 08:20 Acetylcysteine 20% IH 4 ml BIDRESP MIYA Administration Albuterol/Ipratropium 3 ml 05/17/17 16:00 05/18/17 16:09 Duoneb 3 Mg/0.5 Mg (3 Ml) Ud IH 3 ml Q4 MIYA Administration Atorvastatin Calcium 40 mg 05/17/17 10:00 05/18/17 10:12 Lipitor PO 40 mg DAILY MIYA Administration Heparin Sodium (Porcine) 5,000 units 05/16/17 13:15 05/18/17 15:31 Heparin SC 5,000 units Q8H MIYA Administration Protocol Levofloxacin/Dextrose 750 mg in 150 mls @ 100 mls/hr 05/17/17 10:00 05/18/17 10:11 Levaquin 750mg IVPB 100 mls/hr DAILY MIYA Administration Levetiracetam 500 mg 05/18/17 10:00 05/18/17 10:11 Keppra PO 500 mg DAILY MIYA Administration Methylprednisolone 40 mg 05/17/17 00:01 05/18/17 15:31 Solu-Medrol IVP 40 mg Q8H MIYA Administration Metoprolol Tartrate 5 mg 05/17/17 22:00 05/18/17 10:12 Lopressor IVP Not Given Q12 MIYA Pantoprazole Sodium 40 mg 05/16/17 13:15 05/18/17 10:11 Protonix Inj IVP 40 mg DAILY MIYA Administration - Patient Studies Lab Studies: Microbiology Studies 05/16/17 16:20 MRSA Culture (Admit) - Final Nose MRSA NOT DETECTED 05/16/17 17:00 Body Fluid Culture - Preliminary Body Fluid - Lung-Right 05/16/17 14:30 Urine Culture - Final Urine No Growth (<1,000 CFU/ML) Lab Studies 05/18/17 05/18/17 Range/Units 06:30 06:30 WBC 11.0 D (4.5-11.0) 10^3/ul RBC 4.33 (3.5-6.1) 10^6/uL Hgb 12.7 L (14.0-18.0) g/dL Hct 40.3 L (42.0-52.0) % MCV 93.1 (80.0-105.0) fl MCH 29.3 (25.0-35.0) pg MCHC 31.5 (31.0-37.0) g/dl RDW 13.2 (11.5-14.5) % Plt Count 181 (120.0-450.0) 10^3/uL MPV 10.6 (7.0-11.0) fl Gran % 89.1 H (50.0-68.0) % Lymph % (Auto) 6.0 L (22.0-35.0) % [place] % (Auto) 4.9 (1.0-6.0) % Eos % (Auto) 0.0 L (1.5-5.0) % Baso % (Auto) 0.0 (0.0-3.0) % Gran # 9.83 H (1.4-6.5) Lymph # 0.7 L (1.2-3.4) [place] # 0.5 (0.1-0.6) Eos # 0.0 (0.0-0.7) Baso # 0.00 (0.0-2.0) K/mm3 Sodium 142 (132-148) mmol/L Potassium 4.1 (3.6-5.0) mmol/L Chloride 96 L (98-107) mmol/L Carbon Dioxide 37 H (21-33) mmol/L Anion Gap 13 (10-20) BUN 33 H (7-21) mg/dL Creatinine 0.7 (0.5-1.4) mg/dL Est GFR ( Amer) > 60 Est GFR (Non-Af Amer) > 60 Random Glucose 137 H (70-110) mg/dL Calcium 9.0 (8.4-10.5) mg/dL Total Bilirubin 0.3 (0.2-1.3) mg/dL AST 93 H (17-59) U/L ALT 109 H (7-56) U/L Alkaline Phosphatase 83 (38-126) U/L Total Protein 6.8 (5.8-8.3) g/dL Albumin 3.4 (3.0-4.8) g/dL Globulin 3.3 gm/dL Albumin/Globulin Ratio 1.0 L (1.1-1.8) Laboratory Results - last 24 hr 05/18/17 05/18/17 06:30 06:30 WBC 11.0 D RBC 4.33 Hgb 12.7 L Hct 40.3 L MCV 93.1 MCH 29.3 MCHC 31.5 RDW 13.2 Plt Count 181 MPV 10.6 Gran % 89.1 H Lymph % (Auto) 6.0 L [place] % (Auto) 4.9 Eos % (Auto) 0.0 L Baso % (Auto) 0.0 Gran # 9.83 H Lymph # 0.7 L [place] # 0.5 Eos # 0.0 Baso # 0.00 Sodium 142 Potassium 4.1 Chloride 96 L Carbon Dioxide 37 H Anion Gap 13 BUN 33 H Creatinine 0.7 Est GFR ( Amer) > 60 Est GFR (Non-Af Amer) > 60 Random Glucose 137 H Calcium 9.0 Total Bilirubin 0.3 AST 93 H ALT 109 H Alkaline Phosphatase 83 Total Protein 6.8 Albumin 3.4 Globulin 3.3 Albumin/Globulin Ratio 1.0 L Critical Care Progress Note - Nutrition Nutrition: Nutrition Category Date Time Status Dysphagia/Modified Consistency Diet [DIET] Diets 05/18/17 Dinner Ordered Attending/Attestation - Attestation I have personally seen and examined this patient.: Yes I have fully participated in the care of the patient.: Yes I have reviewed all pertinent clinical information: Yes Notes (Text): 05/18/17 16:25 81 y/o M w/ R pleural effusion Pleural effusion likely malignant. Awaiting Cytology CT in place. No resolve of the PTX fully. COuld be trapped lung. On abx, cx pending. Palliative care following patient , awaiting the diagnosis cc time 35 min
--- NOTE | 2017-05-18 15:22 | CT ---
PROCEDURE: CT guided liver biopsy. HISTORY: Multiple liver lesions consistent with metastatic disease. Large right hilar mass. Evaluate for malignancy P PHYSICIAN(S): Fabio Monzon MD. TECHNIQUE: The relative risks and indications of the procedure were explained to the patient's family and consent obtained. The patient was placed supine on the CT scanner and preliminary images through the liver obtained. Conscious sedation and monitoring were provided throughout the procedure by a nurse. Numerous low-attenuation masses are noted in both lobes liver. A 4.4 x 7.2 cm mass in the anterior aspect of the right lobe of the liver was selected for biopsy. A right subcostal approach was selected and the area prepped and draped in the usual sterile fashion. 1% Xylocaine was used to anesthetize the skin and soft tissues. A 17-gauge guiding needle was advanced into the 4.4 x 7.2 cm mass. Its position was confirmed with CT. Using coaxial technique, multiple core biopsies were obtained. The postprocedure images show no evidence of significant hemorrhage. IMPRESSION: 1. CT-guided liver biopsy as described above.
--- NOTE | 2017-05-18 16:31 | RAD ---
HISTORY: Chest tube COMPARISON: Comparison chest dated 05/18/2017 FINDINGS: In situ right-sided chest tube. LUNGS: Questionable small residual right-sided apical pneumothorax. Right basilar atelectasis and or infiltrate and suspected small effusion. Small focal area of left basilar atelectasis felt to be present PLEURA: As above. CARDIOVASCULAR: Cardiomegaly OSSEOUS STRUCTURES: No significant abnormalities. VISUALIZED UPPER ABDOMEN: Normal. OTHER FINDINGS: None. IMPRESSION: In situ right-sided chest tube. Questionable small residual right apical pneumothorax. Right basilar atelectasis and or infiltrate and suspected small right effusion. Minor left basilar atelectasis also felt be present
--- NOTE | 2017-05-18 16:52 | CP.PCM.PN ---
Subjective - Date & Time of Evaluation Date of Evaluation: 05/18/17 Time of Evaluation: 05:40 - Subjective Subjective: Pt S&E this AM. No acute events over night. CT drain output was 40cc/24hr; serosanguinous. CT dressing c/d/i. CXR demonstrates no pneumothorax. Objective - Vital Signs/Intake and Output Vital Signs (last 24 hours): Temp Pulse Resp BP Pulse Ox 98 F 116 H 20 125/75 95 05/18/17 16:00 05/18/17 16:00 05/18/17 16:00 05/18/17 16:00 05/18/17 16:00 Intake and Output: 05/18/17 05/18/17 06:59 18:59 Intake Total 0 365 Output Total 1050 0 Balance -1050 365 - Medications Medications: Current Medications Acetylcysteine (Acetylcysteine 20%) 4 ml IH BIDRESP MIYA Last Admin: 05/18/17 08:20 Dose: 4 ml Albuterol/Ipratropium (Duoneb 3 Mg/0.5 Mg (3 Ml) Ud) 3 ml IH Q4 MIYA Last Admin: 05/18/17 16:09 Dose: 3 ml Atorvastatin Calcium (Lipitor) 40 mg PO DAILY MIYA Last Admin: 05/18/17 10:12 Dose: 40 mg Heparin Sodium (Porcine) (Heparin) 5,000 units SC Q8H MIYA PRN Reason: Protocol Last Admin: 05/18/17 15:31 Dose: 5,000 units Levofloxacin/Dextrose (Levaquin 750mg) 750 mg in 150 mls @ 100 mls/hr IVPB DAILY MIYA Last Admin: 05/18/17 10:11 Dose: 100 mls/hr Levetiracetam (Keppra) 500 mg PO DAILY MIYA Last Admin: 05/18/17 10:11 Dose: 500 mg Methylprednisolone (Solu-Medrol) 40 mg IVP Q8H MIYA Last Admin: 05/18/17 15:31 Dose: 40 mg Metoprolol Tartrate (Lopressor) 5 mg IVP Q12 MIYA Last Admin: 05/18/17 10:12 Dose: Not Given Pantoprazole Sodium (Protonix Inj) 40 mg IVP DAILY MIYA Last Admin: 05/18/17 10:11 Dose: 40 mg - Labs Labs: 05/18/17 06:30 05/18/17 06:30 PT 11.4 Seconds (9.9-11.8) 05/16/17 11:04 INR 1.06 (0.93-1.08) 05/16/17 11:04 APTT 27.6 Seconds (23.7-30.8) 05/16/17 11:04 - Constitutional Appears: No Acute Distress - Head Exam Head Exam: NORMOCEPHALIC - ENT Exam ENT Exam: Mucous Membranes Moist - Respiratory Exam Respiratory Exam: absent: Accessory Muscle Use - Cardiovascular Exam Cardiovascular Exam: +S1, +S2 - GI/Abdominal Exam GI & Abdominal Exam: Soft - Skin Skin Exam: Intact, Normal Color, Warm Assessment and Plan - Assessment and Plan (Free Text) Assessment: 81M s/p chest tube insertion POD2 -CT to water seal -F/u CXR -Monitor vitals -Monitor CT output -Medical management per primary team -Further recs per Dr. Andrew Miranda PGY-2
[2017-05-19] MEDS: Albuterol-Ipratrop 3 mg / 0.5 (3 ml) UD IH SCH ×7 (00:06→23:25)
[2017-05-19 07:23] LABS: GRAN # 7.96 (1.4-6.5); GRAN % 88.8 % (50.0-68.0); HEMATOCRIT 39.4 % (42.0-52.0); LYMPH # 0.5 (1.2-3.4); LYMPH % 5.4 % (22.0-35.0); MEAN CELL VOLUME 93.1 fl (80.0-105.0); MEAN CORPUSCULAR HEMOGLOBIN 29.6 pg (25.0-35.0); MEAN CORPUSCULAR HGB CONC 31.7 g/dl (31.0-37.0); MEAN PLATELET VOLUME 10.5 fl (7.0-11.0); MONO # 0.5 (0.1-0.6); MONO % 5.8 % (1.0-6.0); RED CELL DISTRIBUTION WIDTH 13.4 % (11.5-14.5)
[2017-05-19 07:55] LABS: ALKALINE PHOSPHATASE 81 U/L (38-126); ALT/SGPT 145 U/L (7-56); AST/SGOT 112 U/L (17-59); BILIRUBIN,TOTAL 0.4 mg/dL (0.2-1.3); BLOOD UREA NITROGEN 39 mg/dL (7-21); CALCIUM 8.7 mg/dL (8.4-10.5); CARBON DIOXIDE 34 mmol/L (21-33); CHLORIDE 99 mmol/L (98-107); GFR AFRICAN-AMERICAN > 60; GLUCOSE,RANDOM 129 mg/dL (70-110); POTASSIUM 4.2 mmol/L (3.6-5.0); SODIUM 142 mmol/L (132-148); TOTAL PROTEIN 6.8 g/dL (5.8-8.3)
[2017-05-19] MEDS: Acetylcysteine 20% Inhal Soln (4ml) IH SCH ×2 (07:59→19:28)
--- NOTE | 2017-05-19 08:23 | PN ---
DATE: 05/18/2017 SUBJECTIVE: The patient is currently in room 373, bed 2. The patient presented to the emergency room with a chief complaint of increasing shortness of breath. The patient has a history of COPD, on Lasix and emphysema, and he presented, as previously stated with a worsening increasing shortness of breath for the last few weeks. The patient uses nebulizers at home with no improvement of symptoms. PAST MEDICAL HISTORY: The patient has a past medical history of right-sided paresis and a right facial droop. PHYSICAL EXAMINATION VITAL SIGNS: Temperature of 98, pulse rate of 116, blood pressure 125/75, respirations of 20 with an O2 saturation of 95%. HEENT: Unremarkable. NECK: Supple with full range of motion. LUNGS: Show diminished breath sounds bilaterally. ABDOMEN: Benign. It is soft. It is nontender. Bowel sounds are positive. NEUROLOGIC: The patient, as previously stated, has a hemiparesis. The patient was seen today in CAT scan where Dr. Fabio Monzon performed a liver biopsy for it looks like what maybe liver metastasis. We will continue current regimen until biopsy report is available. CURRENT DIAGNOSES: Congestive heart failure exacerbation, respiratory failure, status post cerebrovascular accident with hemiparesis. Pedro Villa MD
--- NOTE | 2017-05-19 09:11 | RAD ---
HISTORY: PTX COMPARISON: 05/18/2017. FINDINGS: Stable position of the right-sided chest tear. LUNGS: There is persistent pulmonary venous congestion. There is persistent dense opacity in the right lower lobe. PLEURA: No significant pleural effusion identified, no pneumothorax apparent. CARDIOVASCULAR: Stable cardiomediastinal silhouette. OSSEOUS STRUCTURES: No significant abnormalities. VISUALIZED UPPER ABDOMEN: Normal. OTHER FINDINGS: None. IMPRESSION: No significant interval change in dense consolidation in the right lower lobe. Stable position of the right chest tube. No pneumothorax.
[2017-05-19] MEDS: MethylPREDNISolone 40 mg Vial IVP SCH ×2 (09:22→16:19)
--- NOTE | 2017-05-19 09:59 | PN ---
DATE: 05/19/2017 PULMONARY PROGRESS NOTE SUBJECTIVE: The patient appears comfortable this morning. He is not short of breath at rest. PHYSICAL EXAMINATION: VITAL SIGNS: Temperature is 98.8, pulse this morning is approximately 90, respirations are 18, and blood pressure is 130/81. Oxygen saturation on nasal cannula is 96%. HEENT: Normocephalic and atraumatic. NECK: No JVD. CARDIOVASCULAR: Systolic ejection murmur at the lower left sternal border. No S3 gallop. LUNGS: Decreased breath sounds at the bases. Bilateral rhonchi. No wheezing. EXTREMITIES: Mild edema. No cyanosis, no clubbing. Calves are nontender to palpation. GASTROINTESTINAL: Abdomen is soft, nontender, and nondistended. Bowel sounds are positive. SKIN: No acute rash. Right chest tube in place. NEUROLOGIC: Exam is limited at the present time. IMPRESSION 1. Large right pleural effusion, status post thoracentesis. 2. Right pneumothorax - resolving. 3. Chronic obstructive pulmonary disease. 4. Acute bronchospasm. 5. Respiratory failure. 6. Mild anemia. 7. Hilar adenopathy with liver lesions. Rule out metastatic disease. PLAN: The patient appears comfortable this morning. He is not short of breath at rest. He does state to feeling a little better overall. The is at bedside. I did discuss the case with the patient and at length. The patient is status post liver biopsy by Dr. Fabio Monzon yesterday. We are awaiting the results. We are also awaiting the results from the pleural fluid. On physical exam, the patient remains in bronchospasm. I will continue with the current nebulizer treatments and intravenous steroids for now. There is a repeat chest x-ray ordered for this morning - not done yet. I will check that when feasible. I would continue with the chest tube management as per surgery. Again, the pleural fluid results are pending. However, another consideration would be to move ahead with pleurodesis. The overall clinical picture is one of metastatic disease. Input by ANGELA Escobar(palliative care) is noted. Overall status/prognosis for this patient remains poor. I will discuss the above with Dr. Villa. Herb Karpman, MD cc: [email or web address]
--- NOTE | 2017-05-19 11:15 | PN ---
DATE: SUBJECTIVE: The patient is lying in bed, has no specific complaints and there are no acute events overnight. The patient had a liver biopsy done yesterday morning. The patient also has a chest tube in due to a pleural effusion. He has history of hemiparesis secondary to stroke. PHYSICAL EXAMINATION: VITAL SIGNS: Temperature of 97.8, pulse rate of 109, blood pressure 129/77, respiratory rate of 24 with an O2 saturation of 95%. HEENT: Negative. NECK: Supple. No bruits or adenopathy are appreciated. LUNGS: There are good breath sounds bilaterally. There is a chest tube in the right chest. HEART: Regular rate and rhythm, no murmurs, rubs, or gallops. ABDOMEN: Soft, it is nontender. Bowel sounds are normoactive. EXTREMITIES: Show no deformities, no edema. NEUROLOGIC: The patient is intact. LABORATORY DATA: Hemoglobin and hematocrit 12.5 and 39.4, which is remaining study. White blood cell count of 9.0. Chemistry shows a BUN of 39 with a creatinine of 0.8. Random glucose is 129. AST and ALT are elevated at 112 and 145. PROBLEMS LIST: At this time; 1. Respiratory failure secondary to a right pleural effusion. 2. Excerebration of congestive heart failure. 3. Possible liver malignancy. 4. Status post cerebrovascular accident with hemiparesis. Pedro Villa MD
[2017-05-19] MEDS: levETIRAcetam 500 mg/5ml UD cups PO SCH (11:19)
[2017-05-19] MEDS: levoFLOXacin 750 mg in D5W 750 MG/150 ML BAG IVPB SCH (11:19)
[2017-05-19] MEDS: Metoprolol 1 mg/ml Inj IVP SCH ×2 (11:19→22:24)
--- NOTE | 2017-05-19 11:21 | CP.PCM.PN ---
Subjective - Date & Time of Evaluation Date of Evaluation: 05/19/17 Time of Evaluation: 07:30 - Subjective Subjective: Patient seen and examined this morning. NAEO. Scant output from chest tube. Chest tube dressings changed, c/d/i. CXR in AM demonstrated no pneumothorax. Objective - Vital Signs/Intake and Output Vital Signs (last 24 hours): Temp Pulse Resp BP Pulse Ox 97.8 F 109 H 24 129/77 95 05/19/17 06:00 05/19/17 06:00 05/19/17 06:00 05/19/17 06:00 05/19/17 06:00 Intake and Output: 05/19/17 05/19/17 06:59 18:59 Intake Total 180 Balance 180 - Medications Medications: Current Medications Acetylcysteine (Acetylcysteine 20%) 4 ml IH BIDRESP [facility] Last Admin: 05/19/17 07:59 Dose: 4 ml Albuterol/Ipratropium (Duoneb 3 Mg/0.5 Mg (3 Ml) Ud) 3 ml IH Q4 [facility] Last Admin: 05/19/17 08:00 Dose: 3 ml Atorvastatin Calcium (Lipitor) 40 mg PO DAILY [facility] Last Admin: 05/18/17 10:12 Dose: 40 mg Heparin Sodium (Porcine) (Heparin) 5,000 units SC Q8H [facility] PRN Reason: Protocol Last Admin: 05/19/17 05:13 Dose: 5,000 units Levofloxacin/Dextrose (Levaquin 750mg) 750 mg in 150 mls @ 100 mls/hr IVPB DAILY [facility] Last Admin: 05/18/17 10:11 Dose: 100 mls/hr Levetiracetam (Keppra) 500 mg PO DAILY [facility] Last Admin: 05/18/17 10:11 Dose: 500 mg Methylprednisolone (Solu-Medrol) 40 mg IVP Q8H [facility] Last Admin: 05/18/17 23:04 Dose: 40 mg Metoprolol Tartrate (Lopressor) 5 mg IVP Q12 [facility] Last Admin: 05/18/17 23:07 Dose: 5 mg Pantoprazole Sodium (Protonix Inj) 40 mg IVP DAILY [facility] Last Admin: 05/18/17 10:11 Dose: 40 mg - Labs Labs: 05/19/17 07:15 05/19/17 07:15 PT 11.4 Seconds (9.9-11.8) 05/16/17 11:04 INR 1.06 (0.93-1.08) 05/16/17 11:04 APTT 27.6 Seconds (23.7-30.8) 05/16/17 11:04 - Constitutional Appears: No Acute Distress - Head Exam Head Exam: NORMOCEPHALIC - Eye Exam Eye Exam: Normal appearance - ENT Exam ENT Exam: Mucous Membranes Moist - Respiratory Exam Respiratory Exam: NORMAL BREATHING PATTERN - Cardiovascular Exam Cardiovascular Exam: +S1, +S2 - Neurological Exam Neurological Exam: Alert, Awake - Psychiatric Exam Psychiatric exam: Normal Mood - Skin Skin Exam: Normal Color, Warm Assessment and Plan - Assessment and Plan (Free Text) Assessment: 81M w/ pneumothorax s/p chest tube insertion POD# 3 -No pneumothorax in AM CXR -Talc pleurodesis, removal of chest tube -F/u CXR -Patient DNR/DNI -D/w Dr. Gonzalo Miranda PGY-2
--- NOTE | 2017-05-19 12:36 | CP.PCM.PN ---
Subjective - Date & Time of Evaluation Date of Evaluation: 05/19/17 Time of Evaluation: 12:00 - Subjective Subjective: Alert, sitting up in chair. Non productive cough. No distress observed. Objective - Vital Signs/Intake and Output Vital Signs (last 24 hours): Temp Pulse Resp BP Pulse Ox 97.8 F 118 H 24 143/91 H 95 05/19/17 06:00 05/19/17 11:19 05/19/17 06:00 05/19/17 11:19 05/19/17 06:00 Intake and Output: 05/19/17 05/19/17 06:59 18:59 Intake Total 180 Balance 180 - Medications Medications: Current Medications Acetylcysteine (Acetylcysteine 20%) 4 ml IH BIDRESP [facility] Last Admin: 05/19/17 07:59 Dose: 4 ml Albuterol/Ipratropium (Duoneb 3 Mg/0.5 Mg (3 Ml) Ud) 3 ml IH Q4 [facility] Last Admin: 05/19/17 11:51 Dose: 3 ml Atorvastatin Calcium (Lipitor) 40 mg PO DAILY [facility] Last Admin: 05/19/17 11:20 Dose: 40 mg Furosemide (Lasix) 20 mg IVP DAILY [facility] Heparin Sodium (Porcine) (Heparin) 5,000 units SC Q8H [facility] PRN Reason: Protocol Last Admin: 05/19/17 12:26 Dose: 5,000 units Levofloxacin/Dextrose (Levaquin 750mg) 750 mg in 150 mls @ 100 mls/hr IVPB DAILY [facility] Last Admin: 05/19/17 11:19 Dose: 100 mls/hr Levetiracetam (Keppra) 500 mg PO DAILY [facility] Last Admin: 05/19/17 11:19 Dose: 500 mg Methylprednisolone (Solu-Medrol) 40 mg IVP Q8H [facility] Last Admin: 05/19/17 09:22 Dose: 40 mg Metoprolol Tartrate (Lopressor) 5 mg IVP Q12 [facility] Last Admin: 05/19/17 11:19 Dose: 5 mg Pantoprazole Sodium (Protonix Inj) 40 mg IVP DAILY [facility] Last Admin: 05/19/17 11:19 Dose: 40 mg Scopolamine (Transderm-Scop) 1 patch TD Q3D [facility] - Labs Labs: 05/19/17 07:15 05/19/17 07:15 PT 11.4 Seconds (9.9-11.8) 05/16/17 11:04 INR 1.06 (0.93-1.08) 05/16/17 11:04 APTT 27.6 Seconds (23.7-30.8) 05/16/17 11:04 - Constitutional Appears: Chronically Ill - Eye Exam Eye Exam: Normal appearance, PERRL - ENT Exam ENT Exam: Mucous Membranes Moist, Normal Oropharynx - Respiratory Exam Respiratory Exam: Decreased Breath Sounds, Rhonchi Additional comments: mild dyspnea on exertion - Cardiovascular Exam Cardiovascular Exam: REGULAR RHYTHM, +S1, +S2 - GI/Abdominal Exam GI & Abdominal Exam: Soft, Normal Bowel Sounds - Extremities Exam Extremities Exam: Pedal Edema - Back Exam Back Exam: NORMAL INSPECTION - Skin Skin Exam: Dry, Warm Assessment and Plan - Assessment and Plan (Free Text) Assessment: 81 year old male with history of COPD,HTN, CVA admitted with shortness of breath, left pleural effusion, left pneumothorax , left chest tube, sepsis. Family at bedside. Advance care planning conversation resumed. As was done yesterday, benefits and burdens of aggressive resuscitation explained, questions answered. POLST directive explained. Family agreeable, POLST: DNR/DNI completed, a copy is on the chart. Time spent in goals of care /advance care planning discussion with family, 30 minutes Plan: as discussed with Dr. Viry Villa, Advance care planning,POLST: DNR/DNI
[2017-05-19] MEDS ORDERED: Talc 5 gm Sterile Powder PL ONE (12:44)
--- NOTE | 2017-05-19 17:05 | CP.PCM.PN ---
Subjective - Date & Time of Evaluation Date of Evaluation: 05/19/17 Time of Evaluation: 17:00 - Subjective Subjective: The patient requires a hospital bed, at home, requires positioning of the body in ways not feasible with ordinary bed to alleviate pain. Also requires head of bed to be elevated more than 30 degrees, most of the time due to increased respiratory secretions. Patient has a medical condition which requires head of bed to be elevated more than 30 degrees due to pulmonary disease. Patient with dx pleural effusions, s/p thoracentesis. DESIREE Zhong Objective - Vital Signs/Intake and Output Vital Signs (last 24 hours): Temp Pulse Resp BP Pulse Ox 97 F L 95 H 22 127/73 97 05/19/17 16:00 05/19/17 16:00 05/19/17 16:00 05/19/17 16:00 05/19/17 16:00 Intake and Output: 05/19/17 05/19/17 06:59 18:59 Intake Total 180 Balance 180 - Medications Medications: Current Medications Acetylcysteine (Acetylcysteine 20%) 4 ml IH BIDRESP [facility] Last Admin: 05/19/17 07:59 Dose: 4 ml Albuterol/Ipratropium (Duoneb 3 Mg/0.5 Mg (3 Ml) Ud) 3 ml IH Q4 [facility] Last Admin: 05/19/17 15:18 Dose: 3 ml Atorvastatin Calcium (Lipitor) 40 mg PO DAILY [facility] Last Admin: 05/19/17 11:20 Dose: 40 mg Furosemide (Lasix) 20 mg IVP DAILY [facility] Last Admin: 05/19/17 12:52 Dose: 20 mg Heparin Sodium (Porcine) (Heparin) 5,000 units SC Q8H [facility] PRN Reason: Protocol Last Admin: 05/19/17 12:26 Dose: 5,000 units Levofloxacin/Dextrose (Levaquin 750mg) 750 mg in 150 mls @ 100 mls/hr IVPB DAILY [facility] Last Admin: 05/19/17 11:19 Dose: 100 mls/hr Levetiracetam (Keppra) 500 mg PO DAILY [facility] Last Admin: 05/19/17 11:19 Dose: 500 mg Methylprednisolone (Solu-Medrol) 40 mg IVP Q8H [facility] Last Admin: 05/19/17 16:19 Dose: 40 mg Metoprolol Tartrate (Lopressor) 5 mg IVP Q12 [facility] Last Admin: 05/19/17 11:19 Dose: 5 mg Pantoprazole Sodium (Protonix Inj) 40 mg IVP DAILY [facility] Last Admin: 05/19/17 11:19 Dose: 40 mg Scopolamine (Transderm-Scop) 1 patch TD Q3D [facility] Last Admin: 05/19/17 12:52 Dose: 1 patch - Labs Labs: 05/19/17 07:15 05/19/17 07:15 PT 11.4 Seconds (9.9-11.8) 05/16/17 11:04 INR 1.06 (0.93-1.08) 05/16/17 11:04 APTT 27.6 Seconds (23.7-30.8) 05/16/17 11:04
[2017-05-20] MEDS: MethylPREDNISolone 40 mg Vial IVP SCH ×4 (02:03→21:56)
[2017-05-20] MEDS: Albuterol-Ipratrop 3 mg / 0.5 (3 ml) UD IH SCH ×6 (04:45→23:39)
[2017-05-20 07:47] LABS: GRAN # 8.84 (1.4-6.5); GRAN % 87.4 % (50.0-68.0); HEMATOCRIT 42.1 % (42.0-52.0); LYMPH # 0.5 (1.2-3.4); LYMPH % 4.5 % (22.0-35.0); MEAN CELL VOLUME 92.7 fl (80.0-105.0); MEAN CORPUSCULAR HEMOGLOBIN 29.5 pg (25.0-35.0); MEAN CORPUSCULAR HGB CONC 31.8 g/dl (31.0-37.0); MEAN PLATELET VOLUME 11.2 fl (7.0-11.0); MONO # 0.8 (0.1-0.6); MONO % 8.1 % (1.0-6.0); PLATELET COUNT 197 10^3/uL (120.0-450.0); RED CELL DISTRIBUTION WIDTH 13.6 % (11.5-14.5); WHITE BLOOD COUNT 10.1 10^3/ul (4.5-11.0)
[2017-05-20 08:07] LABS: ALB/GLOB RATIO 1.1 (1.1-1.8); ALKALINE PHOSPHATASE 75 U/L (38-126); ALT/SGPT 176 U/L (7-56); AST/SGOT 110 U/L (17-59); BILIRUBIN,TOTAL 0.6 mg/dL (0.2-1.3); BLOOD UREA NITROGEN 40 mg/dL (7-21); CALCIUM 8.7 mg/dL (8.4-10.5); CARBON DIOXIDE 33 mmol/L (21-33); CHLORIDE 99 mmol/L (98-107); GFR AFRICAN-AMERICAN > 60; GLUCOSE,RANDOM 131 mg/dL (70-110); POTASSIUM 4.6 mmol/L (3.6-5.0); SODIUM 141 mmol/L (132-148); TOTAL PROTEIN 6.2 g/dL (5.8-8.3)
[2017-05-20] MEDS: Acetylcysteine 20% Inhal Soln (4ml) IH SCH ×2 (08:07→19:44)
--- NOTE | 2017-05-20 08:26 | RAD ---
HISTORY: s/p chest tube removal COMPARISON: 05/19/2017 FINDINGS: LUNGS: There is interval removal of the right chest tube. There is dense consolidation in the right lower lobe. There is left basilar atelectasis. PLEURA: No significant pleural effusion identified, no pneumothorax apparent. CARDIOVASCULAR: There is mild cardiomegaly and pulmonary venous congestion. Atherosclerotic aortic arch calcifications are present. OSSEOUS STRUCTURES: No significant abnormalities. VISUALIZED UPPER ABDOMEN: Normal. OTHER FINDINGS: None. IMPRESSION: Status post removal of the right chest tube, no evidence of pneumothorax. Persistent dense consolidation in the right lower lobe. Left basilar atelectasis.
--- NOTE | 2017-05-20 08:49 | CP.PCM.PN ---
Subjective - Date & Time of Evaluation Date of Evaluation: 05/20/17 Time of Evaluation: 07:00 - Subjective Subjective: Patient seen and examined this morning. Denies chest pain/SOB. Chest tube site dressing saturated with serous fluid. Apply clean, dry dressings over chest tube site. Objective - Vital Signs/Intake and Output Vital Signs (last 24 hours): Temp Pulse Resp BP Pulse Ox 98.4 F 125 H 24 138/83 92 L 05/20/17 08:20 05/20/17 08:20 05/20/17 08:20 05/20/17 08:20 05/20/17 08:20 Intake and Output: 05/20/17 05/20/17 06:59 18:59 Intake Total 120 Output Total 1000 Balance -880 - Medications Medications: Current Medications Acetylcysteine (Acetylcysteine 20%) 4 ml IH BIDRESP [facility] Last Admin: 05/20/17 08:07 Dose: 4 ml Albuterol/Ipratropium (Duoneb 3 Mg/0.5 Mg (3 Ml) Ud) 3 ml IH Q4 [facility] Last Admin: 05/20/17 08:07 Dose: 3 ml Atorvastatin Calcium (Lipitor) 40 mg PO DAILY [facility] Last Admin: 05/19/17 11:20 Dose: 40 mg Furosemide (Lasix) 20 mg IVP DAILY [facility] Last Admin: 05/19/17 12:52 Dose: 20 mg Heparin Sodium (Porcine) (Heparin) 5,000 units SC Q8H [facility] PRN Reason: Protocol Last Admin: 05/20/17 05:25 Dose: 5,000 units Levofloxacin/Dextrose (Levaquin 750mg) 750 mg in 150 mls @ 100 mls/hr IVPB DAILY [facility] Last Admin: 05/19/17 11:19 Dose: 100 mls/hr Levetiracetam (Keppra) 500 mg PO DAILY [facility] Last Admin: 05/19/17 11:19 Dose: 500 mg Methylprednisolone (Solu-Medrol) 40 mg IVP Q8H [facility] Last Admin: 05/20/17 08:30 Dose: 40 mg Metoprolol Tartrate (Lopressor) 5 mg IVP Q12 [facility] Last Admin: 05/19/17 22:24 Dose: 5 mg Pantoprazole Sodium (Protonix Inj) 40 mg IVP DAILY [facility] Last Admin: 09/22/17 11:19 Dose: 40 mg Scopolamine (Transderm-Scop) 1 patch TD Q3D [facility] Last Admin: 05/19/17 12:52 Dose: 1 patch - Labs Labs: 05/20/17 07:10 05/20/17 07:10 PT 11.4 Seconds (9.9-11.8) 05/16/17 11:04 INR 1.06 (0.93-1.08) 05/16/17 11:04 APTT 27.6 Seconds (23.7-30.8) 05/16/17 11:04 - Constitutional Appears: No Acute Distress - Head Exam Head Exam: NORMOCEPHALIC - Eye Exam Eye Exam: Normal appearance - ENT Exam ENT Exam: Mucous Membranes Moist - Respiratory Exam Respiratory Exam: NORMAL BREATHING PATTERN - Cardiovascular Exam Cardiovascular Exam: +S1, +S2 - GI/Abdominal Exam GI & Abdominal Exam: Soft. absent: Distended, Firm, Guarding, Tenderness - Neurological Exam Neurological Exam: Alert, Awake, Oriented x3 - Psychiatric Exam Psychiatric exam: Normal Mood - Skin Skin Exam: Dry, Intact, Warm Assessment and Plan - Assessment and Plan (Free Text) Assessment: 81M w/ talc pleurodesis and chest tube removal -Chest tube removed yesterday night after pleurodesis -Repeat CXR s/p removal demonstrated no pneumothorax -F/u CXR in AM -F/u AM labs -Patient DNR/DNI -D/w Dr. Gonzalo Miranda PGY-2
--- NOTE | 2017-05-20 08:53 | RAD ---
HISTORY: PTX COMPARISON: 05/19/2017 FINDINGS: LUNGS: There are low lung volumes. There is dense consolidation in the right lower lobe and left basilar atelectasis. PLEURA: No significant pleural effusion identified, no pneumothorax apparent. CARDIOVASCULAR: Normal. OSSEOUS STRUCTURES: No significant abnormalities. VISUALIZED UPPER ABDOMEN: Normal. OTHER FINDINGS: None. IMPRESSION: Low lung volumes and limited portable examination limits evaluation of pneumothorax. No definite evidence of pneumothorax. Persistent right lower lobe consolidation and left basilar atelectasis.
[2017-05-20 09:15] LABS: ANISOCYTOSIS SLIGHT; NEUTROPHIL 86 % (50.0-70.0); PLATELET ESTIMATE NORMAL (NORMAL)
[2017-05-20] MEDS: Metoprolol 1 mg/ml Inj IVP SCH ×2 (10:34→21:53)
[2017-05-20] MEDS: levoFLOXacin 750 mg in D5W 750 MG/150 ML BAG IVPB SCH (10:35)
[2017-05-20] MEDS: levETIRAcetam 500 mg/5ml UD cups PO SCH (10:35)
--- NOTE | 2017-05-20 14:57 | PN ---
DATE: 05/20/2017 SUBJECTIVE: Despite previous comments, the patient is markedly short of breath today. He is actually in extremes. His chest tube was taken out yesterday. Followup x-ray this morning does not show any reaccumulation of fluid. There is, however, a large right lower lobe mass presumably carcinoma. There is pulmonary vascular congestion noted. The patient has been seen by his primary medical doctor, Dr. Villa and given IV diuretics. We hope that this is successful in alleviating his respiratory symptoms. There is no wheezing, but there is evidence of rales and pulmonary vascular congestion. The patient is awake and oriented, trying to eat some breakfast or lunch. The family is at the bedside. We have discussed at great length with the patient's and son the various conditions involved. We are happy to hear that the patient was made a DNR/DNI, but further decisions need to be made regarding his overall status due to his age and poor condition. No additional findings are noted at this time, although the patient has described above, is doing poorly. PHYSICAL EXAMINATION VITAL SIGNS: The vital signs are such that the temperature still remains afebrile, the respiratory rate is 22, the blood pressure was 130/90, oxygen sat is 96% with nasal oxygen, heart rate 96. HEENT: Normocephalic and atraumatic. NECK: Positive JVD. No lymphadenopathy. No bruits. CARDIOPULMONARY: Regular rhythm. Tachycardia noted. S1 and S2. Systolic ejection murmur. Lower left sternal border. S3 gallop is heard. CHEST: Global decreased breath sounds at both lung crane. There is decreased breath sounds at the right base. There are rhonchi scattered throughout. No wheezing is heard. Rales are noted [address] There is significant absence of breath sounds at the right base. ABDOMEN: Soft. Bowel sounds normoactive without mass, guarding or rebound. No organomegaly. EXTREMITIES: Reveal some edema. No cyanosis or clubbing. Erich's sign is negative. SKIN: No rash or excoriation. Chest tube has been removed. NEUROLOGIC: Limited evaluation. The patient is awake and alert. Taking fluid by the RN at this time. CLINICAL IMPRESSION: 1. Right pleural effusion has been resolved with a chest tube. Right pneumothorax has been resolved by chest tube the pulmonary vascular congestion. 2. Pulmonary edema. 3. No bronchospasm present at this time. 4. Impending respiratory failure. 5. Hilar adenopathy and liver lesions as described above. Biopsy taken. Results pending. PLAN: At this time, the patient has been given Lasix by the PMD. He will need further cardiovascular intervention. He is DNR/DNI, thus does not preclude sending him to the intensive care unit if intensive intervention will be given. This is unlikely after discussing this with the patient's family. I will discuss again with Dr. Villa to make sure that transfer to ICU is indicated. The states that the only thing that she wants is to make her comfortable and if that be the case, no further invasive intervention is suggested. I know that Dr. Villa has discussed at length the overall status with the family earlier today and they are aware of the poor prognosis. I reiterated my concerns as well. We will continue vigorous support. Dr. Villa will give additional diuretics and discuss with cardiology. If there is any further intervention for which I can be helpful, it will be my pleasure to see this patient whenever necessary. I will see him again in the morning regardless. I have asked the nurse to call me if there are any changes in his status over the day. Thank you for the opportunity to evaluate this poor patient. I hope he makes a recovery, but note as well as this time is that the prognosis is extremely guarded. Juan Carlos Anthony MD
--- NOTE | 2017-05-21 00:53 | PN ---
DATE: SUBJECTIVE: The patient is an 81-year-old white male in room 376, bed #2. There have been no acute events overnight. PHYSICAL EXAMINATION: VITAL SIGNS: The patient is afebrile with temperature of 98.4, pulse rate of 125, blood pressure 138/83, respiratory rate 24 with O2 saturation of 92%. HEENT: PERRLA. EOMI. NECK: Supple with full range of motion. LUNGS: Shows scattered rhonchi throughout both lung crane. HEART: Regular rate and rhythm. ABDOMEN: Benign. NEUROLOGIC: The patient is intact. LABORATORY VALUES: WBC 10.1 and hemoglobin and hematocrit of 13.4 and 42.1. Chemistry is essentially normal with a BUN of 40 and creatinine of 0.7, random glucose is 131. AST and ALT are 110 and 176 respectively. We will continue current regimen. Pedro Villa MD
[2017-05-21] MEDS: Albuterol-Ipratrop 3 mg / 0.5 (3 ml) UD IH SCH ×6 (03:37→23:31)
[2017-05-21] MEDS: MethylPREDNISolone 40 mg Vial IVP SCH (06:37)
--- NOTE | 2017-05-21 07:54 | CP.PCM.PN ---
Subjective - Date & Time of Evaluation Date of Evaluation: 05/21/17 Time of Evaluation: 07:50 - Subjective Subjective: General Surgery Progress Note for Dr. Morales Patient seen and examined at bedside. Patient lying down with BiPAP mask on. Patient was complaining of mild SOB, BIPAP helping. Denies fever/chills, cp, abd pain, n/v/d. Objective - Vital Signs/Intake and Output Vital Signs (last 24 hours): Temp Pulse Resp BP Pulse Ox 98.4 F 112 H 24 146/85 92 L 05/20/17 08:20 05/21/17 06:00 05/20/17 08:20 05/20/17 21:53 05/20/17 08:20 Intake and Output: 05/21/17 05/21/17 06:59 18:59 Intake Total 0 Output Total 200 Balance -200 - Medications Medications: Current Medications Acetylcysteine (Acetylcysteine 20%) 4 ml IH BIDRESP [facility] Last Admin: 05/20/17 19:44 Dose: 4 ml Albuterol/Ipratropium (Duoneb 3 Mg/0.5 Mg (3 Ml) Ud) 3 ml IH Q4 [facility] Last Admin: 05/21/17 03:37 Dose: 3 ml Atorvastatin Calcium (Lipitor) 40 mg PO DAILY [facility] Last Admin: 05/20/17 10:35 Dose: 40 mg Furosemide (Lasix) 20 mg IVP DAILY [facility] Last Admin: 05/20/17 10:33 Dose: 20 mg Heparin Sodium (Porcine) (Heparin) 5,000 units SC Q8H [facility] PRN Reason: Protocol Last Admin: 05/21/17 06:37 Dose: 5,000 units Levofloxacin/Dextrose (Levaquin 750mg) 750 mg in 150 mls @ 100 mls/hr IVPB DAILY [facility] Last Admin: 05/20/17 10:35 Dose: 100 mls/hr Levetiracetam (Keppra 500mg Ivpb) 500 mg in 100 mls @ 400 mls/hr IVPB DAILY [facility] Methylprednisolone (Solu-Medrol) 40 mg IVP Q8 [facility] Last Admin: 05/21/17 06:37 Dose: 40 mg Metoprolol Tartrate (Lopressor) 5 mg IVP Q12 [facility] Last Admin: 05/20/17 21:53 Dose: 5 mg Pantoprazole Sodium (Protonix Inj) 40 mg IVP DAILY [facility] Last Admin: 05/20/17 10:35 Dose: 40 mg Scopolamine (Transderm-Scop) 1 patch TD Q3D [facility] Last Admin: 05/19/17 12:52 Dose: 1 patch - Labs Labs: 05/20/17 07:10 05/20/17 07:10 PT 11.4 Seconds (9.9-11.8) 05/16/17 11:04 INR 1.06 (0.93-1.08) 05/16/17 11:04 APTT 27.6 Seconds (23.7-30.8) 05/16/17 11:04 - Constitutional Appears: No Acute Distress - Head Exam Head Exam: ATRAUMATIC, NORMOCEPHALIC - Eye Exam Eye Exam: Normal appearance - ENT Exam ENT Exam: Mucous Membranes Moist - Respiratory Exam Respiratory Exam: NORMAL BREATHING PATTERN Additional comments: on BIPAP - Cardiovascular Exam Cardiovascular Exam: Tachycardia - GI/Abdominal Exam GI & Abdominal Exam: Soft. absent: Distended, Guarding, Tenderness, Rebound - Neurological Exam Neurological Exam: Alert, Awake - Psychiatric Exam Psychiatric exam: Normal Affect, Normal Mood - Skin Skin Exam: Dry, Intact, Warm Assessment and Plan - Assessment and Plan (Free Text) Plan: 81 M s/p talc pleurodesis and chest tube removal -CXR and repeat CXRs show hyperlucency in medial upper R lung, possible small pneumothorax -CXR in AM -Patient DNR/DNI -[facility]
--- NOTE | 2017-05-21 08:29 | RAD ---
HISTORY: desat COMPARISON: 05/20/2017. FINDINGS: There is a small hyperlucency in the right paratracheal region. LUNGS: There is persistent consolidation in the right lower lobe. The left lung is clear. PLEURA: No significant pleural effusion identified, no pneumothorax apparent. CARDIOVASCULAR: Normal. OSSEOUS STRUCTURES: No significant abnormalities. VISUALIZED UPPER ABDOMEN: Normal. OTHER FINDINGS: None. IMPRESSION: . Hyperlucency in the right paratracheal region medial to the right upper lung could represent a small medial pneumothorax. PA radiograph is recommended for further evaluation. 2. Persistent dense consolidation in the right lower lobe.
[2017-05-21] MEDS: Acetylcysteine 20% Inhal Soln (4ml) IH SCH ×2 (08:31→20:37)
[2017-05-21] MEDS: levoFLOXacin 750 mg in D5W 750 MG/150 ML BAG IVPB SCH (09:51)
[2017-05-21] MEDS: levETIRAcetam 500mg IVPB 500 MG/100 ML BAG IVPB SCH (09:51)
[2017-05-21] MEDS: Metoprolol 1 mg/ml Inj IVP SCH ×2 (09:56→21:38)
--- NOTE | 2017-05-21 11:51 | RAD ---
HISTORY: COMPARISON: 05/21/2017 TECHNIQUE: Chest PA and lateral FINDINGS: LINES AND TUBES: None. LUNG AND PLEURA: There is increased lucency on the right medial to the lung. There is right pleural effusion. The left lung is clear. HEART AND MEDIASTINUM: The heart is not enlarged. The hilar and mediastinal contours are within normal limits. Atherosclerotic aortic calcifications are present. SKELETAL STRUCTURES: Within normal limits for the patient's age. VISUALIZED UPPER ABDOMEN: Normal. OTHER FINDINGS: None. IMPRESSION: 1. Suspect right pneumothorax. 2. Right pleural effusion. Right airspace disease cannot be excluded.
--- NOTE | 2017-05-21 12:43 | PN ---
SUBJECTIVE: The patient was seen and examined at bedside on a general medical patel. No acute events overnight. Per discussion with the nursing staff and the patient's family members, the patient is doing better today as compared to yesterday when he was noted to be in rather significant respiratory distress, requiring placement on BiPAP. This morning they stated that he is breathing much more comfortably and their only complaint is that of intermittent agitation for which they are requesting Ativan. Otherwise, the patient himself states he feels okay and his sole complaint is that of increased thirst. He otherwise denies fevers, chills, or pain. OBJECTIVE VITAL SIGNS: Temperature 98.8, pulse 120, blood pressure 124/74, respiratory rate 22, oxygen saturation 93% on 3 liters nasal cannula. GENERAL: Frail elderly man, appearing his stated age, sitting up in bed, in no apparent distress. HEENT: PERRL. EOMI. No scleral icterus. No conjunctival pallor. NECK: Supple with full range of motion. CARDIOVASCULAR: Tachycardic. Normal S1 and S2. LUNGS: Audible crackles and transmitted upper airway sounds with decreased breath sounds at the bases. ABDOMEN: Normoactive bowel sounds. Soft, nontender and nondistended. EXTREMITIES: No edema. NEUROLOGIC: Awake, alert and oriented x3. LABORATORY DATA: Morning labs are pending. 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 PLAN: 1. 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 Input from Dr. Anthony of pulmonary and critical care noted and greatly appreciated. Continue with supplemental oxygen and BiPAP as needed. Input from Rosa Isela Paramonte, PLACEMENT SPECIALIST-C also noted and greatly appreciated and arrangements are being made for home hospice as per family's request. 2. Right pneumothorax, resolved. The patient is status post removal of chest tube. We will continue to monitor respiratory status closely. 3. Hepatic lesions, status post CT-guided biopsy. Input from Dr. Fabio Monzon noted and greatly appreciated. Pathology report is pending, although the preliminary report reportedly demonstrates metastatic lung disease. 4. Hyperlipidemia. 5. History of CVA with residual right-sided hemiparesis. Continue with Keppra 500 mg IV daily for seizure prophylaxis. 6. Hypertension. Blood pressure range stable. 7. Anxiety. We will start Ativan 1 mg IV q. 6 hours p.r.n. 8. Prophylaxis. Continue with Protonix for GI prophylaxis and heparin for DVT prophylaxis. CODE STATUS: DNR/DNI. Dakota Villa MD MTDKiet
--- NOTE | 2017-05-21 13:54 | PN ---
DATE: 05/21/2017 PULMONARY PROGRESS NOTE SUBJECTIVE: The patient is awake and alert, sitting in the chair. His son is shaving him. The patient is smiling and even laughs at jokes. He has markedly improved when compared to yesterday when he was bedridden and gurgling without the ability to even catch his breath. The diuretics that were given him were obviously helpful. He is still at complete rest, but his status is clearly better today than yesterday. I have discussed the code status and prognosis once again with the patient's son and who are all still on board. Dr. Villa once again discussed the status with the family earlier today. All are aware of the poor prognosis. PHYSICAL EXAMINATION GENERAL: The patient is sitting in the chair. Appears to be relatively comfortable, being shaved. VITAL SIGNS: Respiratory rate remains at 22, blood pressure 140/92, O2 saturation 96% with nasal oxygen, heart rate 94. HEENT: Normocephalic, atraumatic. NECK: JVD is still present. No lymphadenopathy or bruit are appreciated. CARDIOLOGY: Regular rhythm. S1 and S2. Soft systolic ejection murmur. Gallop is no longer auscultated. CHEST: Global decrease in breath sounds, decrease in breath sounds at the left base. Scattered rhonchi throughout. No wheezing appreciated. ABDOMEN: Soft. Bowel sounds normoactive without mass, guarding, rebound or organomegaly. EXTREMITIES: Reveal no clubbing, cyanosis. There is trace edema. SKIN: Without rash or excoriation. NEUROLOGIC: Limited, but the patient has clear improvement of status today. Lymphadenopathy is not present. CLINICAL IMPRESSION: As yesterday, status post large right pleural effusion with chest tube resolution, right pneumothorax resolved as well, status post pulmonary edema, no bronchospasm is noted at this time. PLAN: Continue vigorous supportive care. Made discussion with hospice and/or palliative care department. Continue vigorous supportive care as discussed earlier. Son is aware of the full status of his father. We will follow closely and decide on the need for further intervention as times goes by. We will discuss with Dr. Prieto in the morning when he takes back coverage of our team's patients. Juan Carlos Anthony MD
--- NOTE | 2017-05-21 15:30 | RAD ---
PROCEDURE: CHEST RADIOGRAPH, 1 VIEW HISTORY: evaluate for pneumo COMPARISON: Plain radiographs performed earlier the same day FINDINGS: LUNGS: Limited radiograph due to patient's chain overlapping the lung apices. There is a persistent lucency in the right medial upper lobe. There is also dense consolidation in the right lower lobe. The left lung is clear. PLEURA: No pneumothorax or pleural fluid seen. CARDIOVASCULAR: Normal. OSSEOUS STRUCTURES: There is crowding of ribs. VISUALIZED UPPER ABDOMEN: Normal. OTHER FINDINGS: None. IMPRESSION: Limited examination due to patient's chain overlapping the lung apices. Persistent lucency in the medial upper lobe concerning for medial pneumothorax. Follow-up is advised.
[2017-05-21] MEDS: MethylPREDNISolone 40 mg Vial IV SCH (21:37)
[2017-05-22] MEDS: Albuterol-Ipratrop 3 mg / 0.5 (3 ml) UD IH SCH ×5 (04:30→19:52)
[2017-05-22 07:07] LABS: BASO # 0.01 K/mm3 (0.0-2.0); BASO % 0.1 % (0.0-3.0); GRAN # 12.52 (1.4-6.5); GRAN % 90.5 % (50.0-68.0); HEMATOCRIT 41.1 % (42.0-52.0); LYMPH # 0.6 (1.2-3.4); LYMPH % 4.1 % (22.0-35.0); MEAN CELL VOLUME 92.4 fl (80.0-105.0); MEAN CORPUSCULAR HEMOGLOBIN 29.7 pg (25.0-35.0); MEAN CORPUSCULAR HGB CONC 32.1 g/dl (31.0-37.0); MONO # 0.7 (0.1-0.6); MONO % 5.3 % (1.0-6.0); RED CELL DISTRIBUTION WIDTH 13.6 % (11.5-14.5); WHITE BLOOD COUNT 13.8 10^3/ul (4.5-11.0)
[2017-05-22 07:27] LABS: ALKALINE PHOSPHATASE 81 U/L (38-126); ALT/SGPT 115 U/L (7-56); AST/SGOT 72 U/L (17-59); BILIRUBIN,TOTAL 0.7 mg/dL (0.2-1.3); BLOOD UREA NITROGEN 43 mg/dL (7-21); CALCIUM 8.7 mg/dL (8.4-10.5); CARBON DIOXIDE 39 mmol/L (21-33); CHLORIDE 96 mmol/L (98-107); GFR AFRICAN-AMERICAN > 60; GLUCOSE,RANDOM 139 mg/dL (70-110); SODIUM 141 mmol/L (132-148); TOTAL PROTEIN 6.8 g/dL (5.8-8.3)
--- NOTE | 2017-05-22 08:28 | RAD ---
HISTORY: follow up COMPARISON: Frontal chest 10/01/2016. FINDINGS: LUNGS: Noted mid to inferior right sided pulmonary atelectasis infiltrate is unchanged. None is currently seen at the left, representing improvement. Trace lower face obscures bilateral apices medially. PLEURA: Vorh-of-[id number] pleural effusion persists with none noted at left. No prominent pneumothorax. Medially apices are obscured. CARDIOVASCULAR: Prominent cardiac silhouette appears stable. No definite pulmonary vascular derangement. OSSEOUS STRUCTURES: No significant abnormalities. VISUALIZED UPPER ABDOMEN: Normal. OTHER FINDINGS: None. IMPRESSION: No signal change in right basilar atelectasis or infiltrate with [id number] pleural effusion again identified. Left basilar aeration has improved with no definite left-sided infiltrate appreciate this time.
[2017-05-22] MEDS: Acetylcysteine 20% Inhal Soln (4ml) IH SCH ×2 (09:03→19:52)
[2017-05-22] MEDS: levETIRAcetam 500mg IVPB 500 MG/100 ML BAG IVPB SCH (09:22)
[2017-05-22] MEDS: levoFLOXacin 750 mg in D5W 750 MG/150 ML BAG IVPB SCH (09:30)
[2017-05-22] MEDS: Metoprolol 1 mg/ml Inj IVP SCH ×2 (09:30→22:04)
[2017-05-22] MEDS: MethylPREDNISolone 40 mg Vial IV SCH ×2 (09:34→22:06)
--- NOTE | 2017-05-22 10:08 | PN ---
SUBJECTIVE: The patient was seen and examined at bedside on a general medical patel. No acute events overnight. He remains afebrile and hemodynamically stable. The patient was noted to have stable respiratory status over the preceding 24 hours and do not require placement on BiPAP. This morning I had a long discussion with the patient and his family members regarding plans for hospice. Rosa Isela Otoole has been consulted to evaluate for possible home hospice. I also had an extensive discussion with Dr. Fabio Monzon today regarding the possibility of a Pleurx catheter and after discussing the case with Dr. Monzon, it appears that the patient is not a candidate for placement of Pleurx catheter given that he already underwent a pleurodesis with talc and removal of his chest tube. Otherwise, there are no clinical changes in the patient. OBJECTIVE: VITAL SIGNS: Temperature 97.6, pulse 117, blood pressure 131/81, respiratory rate 22, and oxygen saturation 95% on 2 L nasal cannula. GENERAL: No apparent distress. HEENT: PERRL. EOMI. No scleral icterus. NECK: Supple with full range of motion. CARDIOVASCULAR: Tachycardic, normal S1 and S2. LUNGS: Audible transmitted upper airway sounds with decreased breath sounds at the bases. ABDOMEN: Normoactive bowel sounds, soft, nontender, and nondistended. EXTREMITIES: Trace lower extremity edema. NEUROLOGIC: Awake, alert, and oriented x3. LABORATORY DATA: WBC 13.8 with 90% neutrophils, hemoglobin 13, hematocrit 41, and platelets 155. Sodium 141, potassium 4, chloride 96, bicarbonate 39, BUN 43 , creatinine 0.6, and glucose 139. ASSESSMENT: The patient is an 81-year-old male with past medical history of CVA with residual right-sided hemiparesis, hypertension, PVD and COPD who presented to [facility] for evaluation of a 1 to 2 week history of worsening dyspnea, decreased appetite, and weight loss and was initially admitted to the ICU for impending respiratory failure secondary to a large right -sided malignant pleural effusion who is s/p thoracentesis s/p pleurodesis with talc s/p removal of chest tube and pending placement for home hospice PLAN: 1. Right-sided pleural effusion secondary to pulmonary malignancy with metastasis to the liver, status post thoracentesis, status post pleurodesis with talc, status post removal of chest tube. Input from Dr. Anthony pulmonary and critical care medicine noted and greatly appreciated. As above after the discussion with Dr. Fabio Monzon, the patient will likely not benefit from a Pleurx catheter and this will need to be addressed with the family. Repeat chest x-ray shows no change in his effusion. 2. Metastatic lung cancer. The official pathology report is pending as it was sent for markers however the preliminary report is suggestive of primary lung cancer with hepatic metastasis. Rosa Isela Otoole has been consulted from palliative care to facilitate arrangements for home hospice. 3. Hyperlipidemia. 4. History of CVA with residual right-sided hemiparesis, continue with Keppra 500 mg IV daily for seizure prophylaxis. 5. Hypertension. Blood pressure remains stable. 6. Anxiety. Continue with Ativan 1 mg IV q.6 hours p.r.n. 7. Prophylaxis. Continue with Protonix for GI prophylaxis and heparin for DVT prophylaxis. CODE STATUS: DNR/DNI. Dakota Villa MD MTDKiet
--- NOTE | 2017-05-22 12:35 | PN ---
DATE: 05/22/17 SUBJECTIVE: The patient appears comfortable at rest. He is mildly short of breath, but in no acute distress. OBJECTIVE: VITALS: Temperature is 98.9, pulse 109, respirations 20/22, blood pressure 140/78. Oxygen saturation on nasal cannula is 95%. HEENT: Normocephalic, atraumatic. NECK: No JVD. CARDIOVASCULAR: Systolic ejection murmur at the lower left sternal border. No S3 gallop. LUNGS: Decreased breath sounds at the bases. Less bilateral rhonchi. No wheezing. EXTREMITIES: Mild edema. No cyanosis, no clubbing. Calves are nontender to palpation. GI: Abdomen is soft, nontender, and nondistended. Bowel sounds are positive. SKIN: No acute rash. Right chest tube has been removed. NEUROLOGIC: Exam limited at the present time. IMPRESSION: 1. Large right pleural effusion, status post thoracentesis. 2. Right pneumothorax - resolving. 3. Chronic obstructive pulmonary disease. 4. Acute bronchospasm. 5. Respiratory failure. 6. Mild anemia. 7. Hilar adenopathy with liver lesions. Rule out metastatic disease. PLAN: The patient appears comfortable this morning. He is mildly short of breath, but in no acute distress. I did discuss the case with the night nurse at length. The night nurse stated that the patient's last shift was uneventful. On physical exam, he remains in mild bronchospasm. I will continue the current nebulizer treatments and low-dose intravenous steroids (decreased yesterday) for now. We are still awaiting the cytology results on the liver biopsy, as well as the pleural fluid. I will discuss the case with Dr. Valero (Pathology) again today. Surgical input is noted. The chest tube has been removed. The patient is status post talc pleurodesis. Clinical status of the patient is definitely improved - compared to the initial presentation. However, unfortunately, the overall status/prognosis for this patient remains very poor. I will meet with the this morning. I will also discuss the above with Dr. Villa. Herb Prieto MD cc: [facility] # [id number] MTDD
--- NOTE | 2017-05-22 14:57 | CP.PCM.PN ---
Subjective - Date & Time of Evaluation Date of Evaluation: 05/22/17 Time of Evaluation: 06:40 - Subjective Subjective: Patient seen and examined this morning. No acute events over night. Chest dressing is c/d/i. Patient on nasal cannula. Reports mild SOB, but not in acute distress. Objective - Vital Signs/Intake and Output Vital Signs (last 24 hours): Temp Pulse Resp BP Pulse Ox 97.6 F 127 H 22 131/81 95 05/22/17 08:25 05/22/17 09:30 05/22/17 08:25 05/22/17 09:27 05/22/17 08:25 Intake and Output: 05/22/17 05/22/17 06:59 18:59 Intake Total 0 Output Total 450 Balance -450 - Medications Medications: Current Medications Acetylcysteine (Acetylcysteine 20%) 4 ml IH BIDRESP [facility] Last Admin: 05/22/17 09:03 Dose: 4 ml Albuterol/Ipratropium (Duoneb 3 Mg/0.5 Mg (3 Ml) Ud) 3 ml IH Q4 [facility] Last Admin: 05/22/17 11:56 Dose: 3 ml Atorvastatin Calcium (Lipitor) 40 mg PO DAILY [facility] Last Admin: 05/22/17 09:30 Dose: 40 mg Furosemide (Lasix) 20 mg IVP DAILY [facility] Last Admin: 05/22/17 09:27 Dose: 20 mg Heparin Sodium (Porcine) (Heparin) 5,000 units SC Q8H MIYA PRN Reason: Protocol Last Admin: 05/22/17 05:25 Dose: 5,000 units Levofloxacin/Dextrose (Levaquin 750mg) 750 mg in 150 mls @ 100 mls/hr IVPB DAILY [facility] Last Admin: 05/22/17 09:30 Dose: 100 mls/hr Levetiracetam (Keppra 500mg Ivpb) 500 mg in 100 mls @ 400 mls/hr IVPB DAILY [facility] Last Admin: 05/22/17 09:22 Dose: 400 mls/hr Lorazepam (Ativan) 1 mg IVP Q6H PRN; Protocol PRN Reason: Anxiety Last Admin: 05/22/17 03:48 Dose: 1 mg Methylprednisolone (Solu-Medrol) 30 mg IV Q12 [facility]YA Last Admin: 05/22/17 09:34 Dose: 30 mg Metoprolol Tartrate (Lopressor) 5 mg IVP Q12 [facility] Last Admin: 05/22/17 09:30 Dose: 5 mg Pantoprazole Sodium (Protonix Inj) 40 mg IVP DAILY [facility] Last Admin: 05/22/17 09:32 Dose: 40 mg Scopolamine (Transderm-Scop) 1 patch TD Q3D [facility] Last Admin: 05/22/17 12:40 Dose: 1 patch - Labs Labs: 05/22/17 06:56 05/22/17 06:56 PT 11.4 Seconds (9.9-11.8) 05/16/17 11:04 INR 1.06 (0.93-1.08) 05/16/17 11:04 APTT 27.6 Seconds (23.7-30.8) 05/16/17 11:04 - Constitutional Appears: No Acute Distress - Head Exam Head Exam: NORMOCEPHALIC - Eye Exam Eye Exam: Normal appearance - Respiratory Exam Respiratory Exam: Decreased Breath Sounds, Wheezes. absent: Accessory Muscle Use - Cardiovascular Exam Cardiovascular Exam: +S1, +S2 - GI/Abdominal Exam GI & Abdominal Exam: Soft - Neurological Exam Neurological Exam: Alert, Awake - Psychiatric Exam Psychiatric exam: Normal Mood - Skin Skin Exam: Normal Color, Warm Assessment and Plan - Assessment and Plan (Free Text) Assessment: 81 M s/p talc pleurodesis and chest tube removal -CXR; no prominent pneumothorax, improving -Patient DNR/DNI -Daily dressing changes -D/w Dr. Andrew Miranda PGY-2
--- NOTE | 2017-05-22 14:58 | CP.PCM.PN ---
Subjective - Date & Time of Evaluation Date of Evaluation: 05/22/17 Time of Evaluation: 14:00 - Subjective Subjective: Alert, sitting in chair. Occasional cough, offers no complaints. Objective - Vital Signs/Intake and Output Vital Signs (last 24 hours): Temp Pulse Resp BP Pulse Ox 97.6 F 127 H 22 131/81 95 05/22/17 08:25 05/22/17 09:30 05/22/17 08:25 05/22/17 09:27 05/22/17 08:25 Intake and Output: 05/22/17 05/22/17 06:59 18:59 Intake Total 0 Output Total 450 Balance -450 - Medications Medications: Current Medications Acetylcysteine (Acetylcysteine 20%) 4 ml IH BIDRESP [facility] Last Admin: 05/22/17 09:03 Dose: 4 ml Albuterol/Ipratropium (Duoneb 3 Mg/0.5 Mg (3 Ml) Ud) 3 ml IH Q4 [facility]YA Last Admin: 05/22/17 11:56 Dose: 3 ml Atorvastatin Calcium (Lipitor) 40 mg PO DAILY [facility] Last Admin: 05/22/17 09:30 Dose: 40 mg Furosemide (Lasix) 20 mg IVP DAILY [facility] Last Admin: 05/22/17 09:27 Dose: 20 mg Heparin Sodium (Porcine) (Heparin) 5,000 units SC Q8H [facility] PRN Reason: Protocol Last Admin: 05/22/17 05:25 Dose: 5,000 units Levofloxacin/Dextrose (Levaquin 750mg) 750 mg in 150 mls @ 100 mls/hr IVPB DAILY [facility] Last Admin: 05/22/17 09:30 Dose: 100 mls/hr Levetiracetam (Keppra 500mg Ivpb) 500 mg in 100 mls @ 400 mls/hr IVPB DAILY [facility] Last Admin: 05/22/17 09:22 Dose: 400 mls/hr Lorazepam (Ativan) 1 mg IVP Q6H PRN; Protocol PRN Reason: Anxiety Last Admin: 05/22/17 03:48 Dose: 1 mg Methylprednisolone (Solu-Medrol) 30 mg IV Q12 [facility] Last Admin: 05/22/17 09:34 Dose: 30 mg Metoprolol Tartrate (Lopressor) 5 mg IVP Q12 [facility] Last Admin: 09/25/17 09:30 Dose: 5 mg Pantoprazole Sodium (Protonix Inj) 40 mg IVP DAILY [facility] Last Admin: 05/22/17 09:32 Dose: 40 mg Scopolamine (Transderm-Scop) 1 patch TD Q3D [facility] Last Admin: 05/22/17 12:40 Dose: 1 patch - Labs Labs: 05/22/17 06:56 05/22/17 06:56 PT 11.4 Seconds (9.9-11.8) 05/16/17 11:04 INR 1.06 (0.93-1.08) 05/16/17 11:04 APTT 27.6 Seconds (23.7-30.8) 05/16/17 11:04 - Constitutional Appears: Chronically Ill - Eye Exam Eye Exam: Normal appearance, PERRL - ENT Exam ENT Exam: Mucous Membranes Moist, Normal Oropharynx - Respiratory Exam Respiratory Exam: Decreased Breath Sounds, Rhonchi - Cardiovascular Exam Cardiovascular Exam: Tachycardia, +S1 - GI/Abdominal Exam GI & Abdominal Exam: Soft, Normal Bowel Sounds - Extremities Exam Extremities Exam: Normal Capillary Refill, Pedal Edema - Skin Skin Exam: Dry, Warm Assessment and Plan - Assessment and Plan (Free Text) Assessment: 81 year old male with history of COPD, CVA, left hemiparesis who as admitted with left pleural effusion, dyspnea,sepsis and liver lesions. Liver biopsy , results pending. Family and I met last week to discuss advance care planning. A POLST was completed,patient is DNR/DNI. Family has expressed interest in hospice services. Hospice care explained, questions answered. Family met with [facility] health care liaison and have agreed to sign in [facility] hospice services. Time spent in advance care planning/end of life discussions, 20 minutes Plan: Hospice evaluation. Palliative support
[2017-05-23] MEDS: Albuterol-Ipratrop 3 mg / 0.5 (3 ml) UD IH SCH ×8 (02:28→23:48)
[2017-05-23 07:43] LABS: GRAN # 12.04 (1.4-6.5); GRAN % 90.2 % (50.0-68.0); HEMATOCRIT 40.2 % (42.0-52.0); LYMPH # 0.5 (1.2-3.4); MEAN CORPUSCULAR HEMOGLOBIN 29.5 pg (25.0-35.0); MEAN CORPUSCULAR HGB CONC 32.1 g/dl (31.0-37.0); MEAN PLATELET VOLUME 11.1 fl (7.0-11.0); MONO # 0.8 (0.1-0.6); MONO % 5.8 % (1.0-6.0); PLATELET COUNT 153 10^3/uL (120.0-450.0); RED CELL DISTRIBUTION WIDTH 13.4 % (11.5-14.5); WHITE BLOOD COUNT 13.4 10^3/ul (4.5-11.0)
[2017-05-23 07:52] LABS: ALB/GLOB RATIO 0.9 (1.1-1.8); ALKALINE PHOSPHATASE 84 U/L (38-126); ALT/SGPT 115 U/L (7-56); AST/SGOT 67 U/L (17-59); BILIRUBIN,TOTAL 0.7 mg/dL (0.2-1.3); BLOOD UREA NITROGEN 40 mg/dL (7-21); CALCIUM 8.7 mg/dL (8.4-10.5); CARBON DIOXIDE 38 mmol/L (21-33); CHLORIDE 94 mmol/L (95-110); GFR AFRICAN-AMERICAN > 60; GLUCOSE,RANDOM 134 mg/dL (70-110); SODIUM 139 mmol/L (132-148); TOTAL PROTEIN 6.7 g/dL (5.8-8.3)
[2017-05-23] MEDS: Acetylcysteine 20% Inhal Soln (4ml) IH SCH ×2 (07:59→19:40)
[2017-05-23 09:34] LABS: NEUTROPHIL 92 % (50.0-70.0)
[2017-05-23 09:35] LABS: ANISOCYTOSIS SLIGHT; PLATELET ESTIMATE NORMAL (NORMAL)
--- NOTE | 2017-05-23 10:32 | PN ---
PULMONARY NOTE DATE: 05/23/2017 SUBJECTIVE: The patient is more awake and alert this morning --compared to yesterday. He is mildly short of breath, but in no acute distress. PHYSICAL EXAMINATION: VITAL SIGNS: Temperature is 98.3, pulse 98, respirations 20/22, blood pressure 129/84. Oxygen saturation on nasal cannula is 95-98%. HEENT: Normocephalic, atraumatic. No JVD. CARDIOVASCULAR: Systolic ejection murmur at the lower left sternal border. No S3 gallop. LUNGS: Decreased breath sounds at the bases. Minimal bilateral rhonchi. No wheezing. EXTREMITIES: Positive for mild edema. No cyanosis, no clubbing. Calves are nontender to palpation. GI: Abdomen is soft, nontender and nondistended. Bowel sounds are positive. SKIN: No acute rash. NEUROLOGIC: Exam limited at the present time. PERTINENT LABORATORY DATA: Pleural fluid cytology is positive for malignant cells. It is consistent with metastatic small cell carcinoma. Liver biopsy cytology is also positive for malignancy. It is consistent with metastatic small cell carcinoma. IMPRESSION 1. Advanced, metastatic, small cell cancer of the lung. 2. Large right pleural effusion, status post thoracentesis. 3. Right pneumothorax - resolving. 4. Chronic obstructive pulmonary disease. 5. Acute bronchospasm. 6. Status post respiratory failure. 7. Mild anemia. PLAN: The patient appears comfortable this morning. He is more awake and alert this morning - compared to yesterday. He is mildly short of breath, but in no acute distress. The is at bedside. I did discuss all of the pathology findings/results with her at length this morning. On physical exam, there is only mild bronchospasm noted. I will continue the current nebulizer treatments and low-dose intravenous steroids for now. I did note the pathology for the liver biopsy and pleural fluid above. They are both consistent with metastatic small cell cancer of the lung. I also discussed the case with the nurse at length. The patient is for probable hospice placement in the near future. The overall status/prognosis remains very poor. All are aware. I will discuss the above with Dr. Villa later this morning. Herb Prieto MD MTDKiet
--- NOTE | 2017-05-23 10:32 | PN ---
SUBJECTIVE: The patient was seen and examined at bedside on the general medical patel. No acute events overnight. This morning I had an extensive discussion with the patient's family members regarding their goals of care and they were requesting Dr. Velazquez to evaluate the patient. They were also requesting Dr. Fabio Monzon to evaluate the patient for a possible thoracentesis to alleviate his respiratory distress prior to any planned discharge to home with home hospice. OBJECTIVE: VITAL SIGNS: Temperature 98.1, pulse 120, blood pressure 125/78, respiratory rate 22, and oxygen saturation 95% on 2 L nasal cannula. GENERAL: Frail elderly man appearing his stated age, sitting up in bed in moderate respiratory distress. HEENT: PERRL. EOMI. No scleral icterus. NECK: No JVD. LUNGS: Audible transmitted upper airway sounds with decreased breath sounds to the bases with right greater than left. CARDIOVASCULAR: Tachycardic, normal S1 and S2. ABDOMEN: Normoactive bowel sounds, soft, nontender, and nondistended. EXTREMITIES: No edema. NEUROLOGIC: Awake, alert, and oriented. LABORATORY DATA: WBC 13.4 with 90% neutrophils, hemoglobin 13, hematocrit 40, and platelets 153. Sodium 139, potassium 4, chloride 94, bicarbonate 38, BUN 40, creatinine 0.6, and glucose 134. ASSESSMENT: The patient is an 81-year-old man with past medical history of CVA with residual right-sided hemiparesis, hypertension, PVD and COPD who presented to [facility] for evaluation of a 1-2 week history of worsening dyspnea, decreased appetite and weight loss and who was initially admitted to the ICU for impending respiratory failure secondary to large right-sided malignant pleural effusion who is s/p thoracentesis s/p pleurodesis with talc s/ p removal of chest tube and pending placement for home hospice. PLAN: 1. 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 Input from Dr. Prieto noted and greatly appreciated. After a long discussion with the family we will ask Dr. Fabio Monzon to evaluate the patient for possible therapeutic thoracentesis prior to any discharge so as to alleviate the patient's respiratory symptoms. 2. 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 Input from Rosa Isela Otoole noted and greatly appreciated. As per family request, Dr. Velazquez of hematology/oncology will be consulted for further evaluation. 3. Hyperlipidemia. 4. History of CVA with residual right-sided hemiparesis. Continue with Keppra 500 mg IV daily for seizure prophylaxis. 5. Hypertension. 6. Anxiety. We will lower Ativan to Ativan 0.5 mg IV q. 6 hour p.r.n. 7. Prophylaxis: Continue with Protonix for GI prophylaxis and heparin for DVT prophylaxis. CODE STATUS: DNR/DNI. Dakota Villa MD MTDD
[2017-05-23] MEDS: levETIRAcetam 500mg IVPB 500 MG/100 ML BAG IVPB SCH (11:18)
[2017-05-23] MEDS: levoFLOXacin 750 mg in D5W 750 MG/150 ML BAG IVPB SCH (11:23)
[2017-05-23] MEDS: Metoprolol 1 mg/ml Inj IVP SCH ×2 (11:24→21:44)
[2017-05-23] MEDS: MethylPREDNISolone 40 mg Vial IV SCH ×2 (11:31→21:42)
[2017-05-23 16:56] VITALS: TEMP 97.8
--- NOTE | 2017-05-23 18:06 | US ---
PROCEDURE: Ultrasound of the chest HISTORY: Metastatic small cell carcinoma. Previous right pleurodesis. Shortness of breath. Evaluate for thoracentesis. PHYSICIAN(S): Fabio Monzon MD. TECHNIQUE: Sonography of the chest from posterior approach was performed in a sitting position. FINDINGS: There is a small complex right pleural effusion noted -consistent with pleurodesis. No large effusion or drainable fluid collection was noted on the right. No significant fluid is noted in the left chest. IMPRESSION: Small complex right pleural effusion post pleurodesis. No fluid collection amenable to thoracentesis was noted.
[2017-05-23] MEDS ORDERED: Levalbuterol 1.25 MG/3 ML Inhal Soln UD IH ONE (18:23)
--- NOTE | 2017-05-23 18:48 | PCM.RRT ---
<Janna Simon - Last Filed: 05/23/17 18:36> IMPLEMENTATION PROJECT MANAGER Nurse Assessment - Situation Date: 05/23/17 Time IMPLEMENTATION PROJECT MANAGER was called: 18:06 IMPLEMENTATION PROJECT MANAGER Responder Arrival Time: 18:10 IMPLEMENTATION PROJECT MANAGER Location:: [address] [place] [address] Room Number: 376-2 IMPLEMENTATION PROJECT MANAGER Reason for Call: Chest Pain, Tachycardia, O2 Saturation below 90% IMPLEMENTATION PROJECT MANAGER Called By: RN - IV IV Inserted during IMPLEMENTATION PROJECT MANAGER?: No - Respiratory Oxygen Delivery Method: Non Rebreather @% Oxygen Flow Rate: 100 Received Nebulizer Treatments:: Yes Was the Patient Ventilated with Bag/Mask 100% O2?: No Secretions Suctioned?: No Was the Patient Intubated?: No Was the Patient Placed on a Ventilator?: No - Medication Medications Administered During IMPLEMENTATION PROJECT MANAGER: Lasix 20mg IVP - Diagnostic Test Ordered EKG: Yes Chest X-Ray: No CT Scan: No CPR started during IMPLEMENTATION PROJECT MANAGER?: No - Vital Signs Vital Sign: Rapid Response Vital Sign Blood Pressure 166/92 Pulse Rate 153 Respiratory Rate 35 Temperature 98 F Oxygen Saturation 6 - Time IMPLEMENTATION PROJECT MANAGER Ended Time IMPLEMENTATION PROJECT MANAGER Ended: 18:20 - Vital Signs at end of IMPLEMENTATION PROJECT MANAGER Vital Signs at end of IMPLEMENTATION PROJECT MANAGER: Rapid Response End Vital Sign Blood Pressure 166/98 Pulse Rate 129 Respiratory Rate 22 Temperature 98 F O2 Sat by Pulse Oximetry 95 - Recommendations 5) IMPLEMENTATION PROJECT MANAGER Level of Care Recommendations: Remain in current setting Notifications: Consultations (Dr Prieto), Family or Designated Caregiver (at the bed side) I.Reason for IMPLEMENTATION PROJECT MANAGER - A) Acute Change in Patient: Subjective: 81 y/o with stage 4 lung cancer, right pneumothorax and right pleural effusion s/p pleurodesis with talc, s/p thoracentesis, whom IMPLEMENTATION PROJECT MANAGER was called on due to respiratory distress. As per patient's nurse, patient went for thoracentesis earlier today, however the pleural fluid was too small for drainage. When patient return to the floor, patient was short of breath, pointing to his chest. Patient was saturating in the 60s with 4 litter nasal cannula. Patient was placed on non rebreather and was saturating at 96%. On examination patient was tachypneic, HR was in the 130s, with SBP of 150s. Patient with rales and rhonchi on auscultation. Patient was giving a stat dose Lasix, and duoneb treatments. Patient's appetizer packer, Dr Prieto was contacted and he recommended bipap for symptomatic relief, since patient is DNI/DNR, going for home hospice today, and family doesn't want aggressive measures. Patient's family were at the bedside. Dr Ana Tidwell and Dr Samano were at the bedside. - Neurological Status (Select all that apply): Alert, Responsive, Oriented - Respiratory Oxygen Delivery Method: Non Rebreather @% Oxygen Flow Rate: 100 - Constitutional Appears: No Acute Distress, Cachectic, Chronically Ill - Head Head Exam: ATRAUMATIC, NORMAL INSPECTION, NORMOCEPHALIC - Eyes Eye Exam: EOMI, Normal appearance, PERRL - Respiratory Exam Respiratory Exam: Prolonged Expiratory Phase, Rales (diffusely), Rhonchi, Respiratory Distress (mild). absent: Accessory Muscle Use, Wheezes, Stridor - Cardiovascular Exam Cardiovascular Exam: Tachycardia, REGULAR RHYTHM, +S1, +S2 - GI/Abdominal Exam GI & Abdominal Exam: Soft, Normal Bowel Sounds. absent: Distended, Firm, Guarding, Rigid, Tenderness - Neurological Exam Neurological Exam: Alert, Awake - Extremities Exam Extremities Exam: Full ROM, Normal Inspection Plan - Assessment of Findings&Treatment Plan 81 y/o with stage 4 lung cancer met to the liver, right pneumothorax and right pleural effusion s/p pleurodesis with talc, s/p thoracentesis, DNI/DNR, pending discharge to home hospice, IMPLEMENTATION PROJECT MANAGER called due to respiratory distress. s/p 20 mg ivp Lasix, and xoponex treatment. Patient saturating 96% on non rebreather, hemodynamically stable and currently appears more comfortable. - Will place patient on bipap for the night. - Patient's appetizer packer, Dr Prieto notified, and aware of the plan. - Patient's family are the the bedside and aware of patient's status. Patient seen, examined and case discussed with attending. <Ana Tidwell B - Last Filed: 05/24/17 12:18> IMPLEMENTATION PROJECT MANAGER Nurse Assessment - Vital Signs Vital Sign: Rapid Response Vital Sign Blood Pressure 166/92 Pulse Rate 153 Respiratory Rate 35 Temperature 98 F Oxygen Saturation 6 - Vital Signs at end of IMPLEMENTATION PROJECT MANAGER Vital Signs at end of IMPLEMENTATION PROJECT MANAGER: Rapid Response End Vital Sign Blood Pressure 166/98 Pulse Rate 129 Respiratory Rate 22 Temperature 98 F O2 Sat by Pulse Oximetry 95 Attending/Attestation - Attestation I have personally seen and examined this patient.: Yes I have fully participated in the care of the patient.: Yes I have reviewed all pertinent clinical information, including history, physical exam and plan: Yes
[2017-05-24 02:34] VITALS: RESP 36
--- NOTE | 2017-05-24 03:27 | CON ---
DATE: 05/23/2017 REASON FOR CONSULT: Metastatic small cell carcinoma. 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 He was found to have a large pleural effusion as well as lung nodules and multiple lymph nodes. Also, there was multiple liver nodules on admission. He had subsequently undergone a CT-guided liver biopsy, which was positive for small cell carcinoma of the lung. The patient states that he was in usual state of health, even traveled to [facility] and at the end of March, after which when his symptoms rapidly started progressing. His appetite has been very poor and he has not been eating as per the . He does not complain of any pain. No fevers, no night sweats, no other complaints. He does have a baseline COPD and has been maintained on nebulizers for several years. He is currently status post pleurodesis last week and currently awaiting further discussion with me about treatment options. PAST MEDICAL HISTORY: As above, history of CVA, history of coronary disease, and hyperlipidemia. MEDICATIONS: His medications currently include Ativan, Colace, DuoNeb, heparin, Keppra, Lasix, Lipitor, Lopressor, Protonix, Solu-Medrol, and Levaquin. ALLERGIES: NO KNOWN DRUG ALLERGIES. SOCIAL HISTORY: Noncontributory. He was an ex-smoker, but quit over 30 years ago. Denies any alcohol use or drug use. FAMILY HISTORY: Noncontributory. REVIEW OF SYSTEMS: As per the HPI. PHYSICAL EXAMINATION VITAL SIGNS: Reveal a temperature of 98.1, pulse of 118, respiratory rate of 22, and a blood pressure of 125/78. GENERAL: The patient is an elderly pleasant male, sitting up in bed, in no acute distress. He does have an occasional cough. CARDIOVASCULAR: S1 and S2 is heard. The patient is tachycardic. ABDOMEN: Positive bowel sounds. Soft, nontender, and nondistended. No organomegaly is palpated. LUNGS: Decreased breath sounds bilaterally, right more than left. EXTREMITIES: There is some mild edema. LABORATORY DATA: His labs reveal a white count of 13.4, hemoglobin of 12.9, hematocrit of 40.2, MCV of 92.0, and a platelet count of 153. Coag studies are within normal limits. Chemistries are within normal limits except for a BUN of 40 and a creatinine of 6.6. His LFTs are also elevated. AST of 67 and ALT of 115. ASSESSMENT: An elderly male with widely metastatic small cell carcinoma of the lung, including liver and adrenals. He has a very poor performance status. Had a long discussion with family regarding overall poor prognosis in the patient as he has extensive stage small cell lung carcinoma. Also, discussed palliative chemotherapy with him which will include a multitude of side effects. The patient and family want to further discuss prior to making any decision though he is a poor candidate for any aggressive treatment, they would like to consider as they are unsure if they want to keep him on hospice. They may also seek another opinion. Thank you for the consult. We will follow. Vinicius Velazquez MD
[2017-05-24] MEDS: Albuterol-Ipratrop 3 mg / 0.5 (3 ml) UD IH SCH ×3 (03:46→11:43)
--- NOTE | 2017-05-24 06:09 | CP.PCM.PN ---
Subjective - Date & Time of Evaluation Date of Evaluation: 05/24/17 Time of Evaluation: 00:35 - Subjective Subjective: called by nurse pt is sob.hx of stage 4 lung cancer ,pt has severe sob. Objective - Vital Signs/Intake and Output Vital Signs (last 24 hours): Temp Pulse Resp BP Pulse Ox 97.8 F 130 H 36 H 126/77 85 L 05/23/17 16:00 05/24/17 04:32 05/23/17 20:30 05/24/17 01:20 05/23/17 20:30 Intake and Output: 05/23/17 05/24/17 18:59 06:59 Intake Total 240 Output Total 250 Balance -10 - Medications Medications: Current Medications Acetylcysteine (Acetylcysteine 20%) 4 ml IH BIDRESP [facility] Last Admin: 05/23/17 19:40 Dose: Not Given Albuterol/Ipratropium (Duoneb 3 Mg/0.5 Mg (3 Ml) Ud) 3 ml IH Q4 [facility] Last Admin: 05/24/17 03:46 Dose: 3 ml Atorvastatin Calcium (Lipitor) 40 mg PO DAILY [facility] Last Admin: 05/23/17 11:23 Dose: 40 mg Docusate Sodium (Colace) 100 mg PO DAILY [facility] Last Admin: 05/23/17 13:40 Dose: 100 mg Furosemide (Lasix) 20 mg IVP DAILY [facility] Last Admin: 05/23/17 11:20 Dose: 20 mg Heparin Sodium (Porcine) (Heparin) 5,000 units SC Q8H [facility] PRN Reason: Protocol Last Admin: 05/23/17 21:47 Dose: 5,000 units Levetiracetam (Keppra 500mg Ivpb) 500 mg in 100 mls @ 400 mls/hr IVPB DAILY [facility] Last Admin: 05/23/17 11:18 Dose: 400 mls/hr Lorazepam (Ativan) 0.5 mg IVP Q6H PRN; Protocol PRN Reason: Anxiety Last Admin: 05/23/17 18:35 Dose: 0.5 mg Lorazepam (Ativan) 1 mg IVP Q6H PRN; Protocol PRN Reason: Anxiety Methylprednisolone (Solu-Medrol) 30 mg IV Q12 [facility] Last Admin: 05/23/17 21:42 Dose: 30 mg Metoprolol Tartrate (Lopressor) 5 mg IVP Q12 [facility] Last Admin: 05/23/17 21:44 Dose: 5 mg Pantoprazole Sodium (Protonix Inj) 40 mg IVP DAILY [facility] Last Admin: 05/23/17 11:29 Dose: 40 mg Scopolamine (Transderm-Scop) 1 patch TD Q3D [facility] Last Admin: 05/22/17 12:40 Dose: 1 patch Sodium Phosphate (Fleet Enema) 135 ml RC DAILY PRN PRN Reason: Constipation - Labs Labs: 05/23/17 07:37 05/23/17 07:37 PT 11.4 Seconds (9.9-11.8) 05/16/17 11:04 INR 1.06 (0.93-1.08) 05/16/17 11:04 APTT 27.6 Seconds (23.7-30.8) 05/16/17 11:04 - Constitutional Appears: In Acute Distress - Head Exam Head Exam: NORMOCEPHALIC - Eye Exam Pupil Exam: PERRL - ENT Exam ENT Exam: Mucous Membranes Moist - Respiratory Exam Respiratory Exam: Rales, Wheezes - Cardiovascular Exam Cardiovascular Exam: RRR, +S1, +S2 - GI/Abdominal Exam GI & Abdominal Exam: Soft - Extremities Exam Extremities Exam: Normal Inspection - Neurological Exam Neurological Exam: Awake - Skin Skin Exam: Normal Color Assessment and Plan - Assessment and Plan (Free Text) Assessment: sob / ca lung stage 4 /hospice. pleural effusion,chf. Plan: duo nebs .suction . lasix 40mg x1stat
[2017-05-24] MEDS: Acetylcysteine 20% Inhal Soln (4ml) IH SCH (07:49)
[2017-05-24 07:56] VITALS: O2SAT 95
[2017-05-24 08:40] LABS: BASO # 0.01 K/mm3 (0.0-2.0); BASO % 0.1 % (0.0-3.0); GRAN # 12.25 (1.4-6.5); GRAN % 86.1 % (50.0-68.0); HEMATOCRIT 42.8 % (42.0-52.0); LYMPH # 0.7 (1.2-3.4); LYMPH % 4.6 % (22.0-35.0); MEAN CELL VOLUME 91.8 fl (80.0-105.0); MEAN CORPUSCULAR HGB CONC 32.7 g/dl (31.0-37.0); MEAN PLATELET VOLUME 10.7 fl (7.0-11.0); MONO # 1.3 (0.1-0.6); MONO % 9.2 % (1.0-6.0); RED CELL DISTRIBUTION WIDTH 13.6 % (11.5-14.5); WHITE BLOOD COUNT 14.2 10^3/ul (4.5-11.0)
[2017-05-24 08:44] LABS: ALKALINE PHOSPHATASE 97 U/L (38-126); ALT/SGPT 138 U/L (7-56); AST/SGOT 94 U/L (17-59); BLOOD UREA NITROGEN 41 mg/dL (7-21); CALCIUM 8.8 mg/dL (8.4-10.5); CARBON DIOXIDE 38 mmol/L (21-33); CHLORIDE 94 mmol/L (95-110); GFR AFRICAN-AMERICAN > 60; GLUCOSE,RANDOM 129 mg/dL (70-110); SODIUM 143 mmol/L (132-148); TOTAL PROTEIN 6.9 g/dL (5.8-8.3)
[2017-05-24] MEDS: levETIRAcetam 500mg IVPB 500 MG/100 ML BAG IVPB SCH (09:25)
[2017-05-24] MEDS: Metoprolol 1 mg/ml Inj IVP SCH (09:26)
[2017-05-24 09:32] VITALS: BP 134/81; PULSE 133
[2017-05-24] MEDS ORDERED: MethylPREDNISolone 40 mg Vial IVP SCH (10:00)
--- NOTE | 2017-05-24 10:54 | PN ---
SUBJECTIVE: The patient was seen and examined at bedside on the general medical patel. Overnight he developed respiratory distress and a rapid response was called. The patient was placed on BiPAP and administered Ativan 1 mg IV with resolution of his acute pulmonary symptoms. The patient was also evaluated by Dr. Fabio Monzon for possible repeat thoracentesis however per my discussion with Dr. Fabio Monzon there was no fluid to drain. He was also evaluated by Dr. Velazquez of hematology/oncology and given the extensive nature of his underlying malignancy the patient was deemed a poor candidate for further treatment. This morning I had a long discussion with the patient's family and given the events of last night they do not feel that they would be able to handle similar events at home and would now like to consider possible inpatient hospice. OBJECTIVE: VITAL SIGNS: Temperature 97.7, pulse 130, blood pressure 120/76, respiratory rate 28, and oxygen saturation 95% on 4 L nasal cannula. GENERAL: Frail elderly man lying in bed, somnolent but arousable and in moderate respiratory distress. HEENT: PERRL. No scleral icterus. NECK: No JVD. LUNGS: Audible transmitted upper airway sounds with decreased breath sounds at the bases. CARDIOVASCULAR: Tachycardic, normal S1 and S2. ABDOMEN: Normoactive bowel sounds, soft, nontender, and nondistended. EXTREMITIES: No edema. NEUROLOGIC: Somnolent, but arousable. LABORATORY DATA: WBC 14.2 with 86% neutrophils, hemoglobin 14, hematocrit 43, and platelets 139. Chemistry reviewed and noted. ASSESSMENT: The patient is an 81-year-old man with past medical history of CVA with residual right-sided hemiparesis, hypertension, PVD and COPD who presented to [facility] for evaluation of a 1-2 week history of worsening dyspnea, decreased appetite, and weight loss and who was initially admitted to the ICU for impending respiratory failure secondary to large right-sided malignant pleural effusion who is s/p thoracentesis s/p pleurodesis with talc s/ p removal of chest tube and pending determination for possible inpatient hospice. PLAN: 1. 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 Input from Dr. Fabio Monzon noted and appreciated and there is no further fluid to drain. Input from Dr. Prieto also noted and greatly appreciated. Continue with supplemental oxygen and BiPAP as needed. 2. 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 Input from Rosa Isela Otoole noted and greatly appreciated and input from Dr. Velazquez of hematology/oncology noted and greatly appreciated. Consideration will be given for possible inpatient hospice as per family request. 3. Hyperlipidemia. 4. History of CVA with residual right-sided hemiparesis. Continue with Keppra 500 mg IV daily for seizure prophylaxis. 5. Hypertension. 6. Anxiety. Continue with Ativan 1 mg IV q. 6 hours p.r.n. 7. Prophylaxis: Continue with Protonix for GI prophylaxis and heparin for DVT prophylaxis. CODE STATUS: DNR/DNI. Dakota Villa MD MTDD
--- NOTE | 2017-05-24 11:30 | CP.PCM.PN ---
Subjective - Date & Time of Evaluation Date of Evaluation: 05/24/17 Time of Evaluation: 10:00 - Subjective Subjective: Dyspnea, non productive cough. Weak, lethargic. Objective - Vital Signs/Intake and Output Vital Signs (last 24 hours): Temp Pulse Resp BP Pulse Ox 97.8 F 133 H 36 H 134/81 95 05/23/17 16:00 05/24/17 09:26 05/23/17 20:30 05/24/17 09:26 05/24/17 07:55 Intake and Output: 05/24/17 05/24/17 06:59 18:59 Intake Total 240 Output Total 250 Balance -10 - Medications Medications: Current Medications Acetylcysteine (Acetylcysteine 20%) 4 ml IH BIDRESP [facility] Last Admin: 05/24/17 07:49 Dose: 4 ml Albuterol/Ipratropium (Duoneb 3 Mg/0.5 Mg (3 Ml) Ud) 3 ml IH Q4 [facility] Last Admin: 05/24/17 07:49 Dose: 3 ml Atorvastatin Calcium (Lipitor) 40 mg PO DAILY [facility] Last Admin: 05/24/17 09:27 Dose: Not Given Docusate Sodium (Colace) 100 mg PO DAILY [facility] Last Admin: 05/24/17 09:25 Dose: Not Given Furosemide (Lasix) 20 mg IVP DAILY [facility] Last Admin: 05/24/17 09:25 Dose: 20 mg Heparin Sodium (Porcine) (Heparin) 5,000 units SC Q8H [facility] PRN Reason: Protocol Last Admin: 05/24/17 06:39 Dose: 5,000 units Levetiracetam (Keppra 500mg Ivpb) 500 mg in 100 mls @ 400 mls/hr IVPB DAILY [facility] Last Admin: 05/24/17 09:25 Dose: 400 mls/hr Lorazepam (Ativan) 1 mg IVP Q6H PRN; Protocol PRN Reason: Anxiety Last Admin: 05/24/17 10:29 Dose: 1 mg Methylprednisolone (Solu-Medrol) 20 mg IVP Q12 [facility] Last Admin: 05/24/17 09:26 Dose: 20 mg Metoprolol Tartrate (Lopressor) 5 mg IVP Q12 [facility] Last Admin: 05/24/17 09:26 Dose: 5 mg Pantoprazole Sodium (Protonix Inj) 40 mg IVP DAILY [facility] Last Admin: 05/24/17 09:26 Dose: 40 mg Scopolamine (Transderm-Scop) 1 patch TD Q3D [facility] Last Admin: 05/22/17 12:40 Dose: 1 patch Sodium Phosphate (Fleet Enema) 135 ml RC DAILY PRN PRN Reason: Constipation - Labs Labs: 05/24/17 08:30 05/24/17 08:30 PT 11.4 Seconds (9.9-11.8) 05/16/17 11:04 INR 1.06 (0.93-1.08) 05/16/17 11:04 APTT 27.6 Seconds (23.7-30.8) 05/16/17 11:04 - Constitutional Appears: Cachectic, Chronically Ill - Eye Exam Eye Exam: Normal appearance, PERRL - ENT Exam ENT Exam: Mucous Membranes Moist - Respiratory Exam Respiratory Exam: Decreased Breath Sounds, Rhonchi, Wheezes Additional comments: dyspnea - Cardiovascular Exam Cardiovascular Exam: Tachycardia, +S1, +S2 - GI/Abdominal Exam GI & Abdominal Exam: Soft, Hypoactive Bowel Sounds - Exam Additional comments: oliguria - Extremities Exam Extremities Exam: Normal Capillary Refill, Pedal Edema - Skin Skin Exam: Dry, Pallor Assessment and Plan - Assessment and Plan (Free Text) Assessment: 81 year old male with history of COPD,CVA, left maryam paresis who is admitted with sepsis, pleural effusions, metastatic lung cancer. Patient is extremely weak, dyspneic. Appetite poor. Family at bedside. Family expressing interest in [facility] hospice. Lengthy discussion regarding in patient hospice services.Questions answered. Family expresses understanding of hospice process. Family slowly accepting that patient is imminently nearing end. Family has agreed to move forward with evaluation for in- patient hospice care. Psychosocial support given. Spiritual support offered, family refusing at this time. Time spent in hospice discussion,end of life counseling, 40 minutes. Plan: Evaluation for [facility] hospice services Palliative support
--- NOTE | 2017-05-24 11:38 | CARD ---
APPROVED REPORT EKG Measurement Heart [id number] <Conclusion> Sinus tachycardia with premature atrial complexes Right bundle branch block Left anterior fascicular block Bifascicular block Abnormal ECG
--- NOTE | 2017-05-24 14:14 | PN ---
DATE: 05/24/2017 SUBJECTIVE: The patient is currently sedated. He is mildly short of breath, but in no acute distress. He is currently on BiPAP. OBJECTIVE: VITAL SIGNS: Temperature is 97.8, pulse is approximately 100, respiratory rate 22/24, last blood pressure recorded 126/77. Oxygen saturation on BiPAP is 95%. HEENT: Normocephalic, atraumatic. No JVD. CARDIOVASCULAR: Systolic ejection murmur at the lower left sternal border. No S3 gallop. LUNGS: Decreased breath sounds at the bases. Mild bilateral rhonchi. No wheezing. EXTREMITIES: Positive for mild edema. No cyanosis. No clubbing. Calves are nontender to palpation. GI: Abdomen is soft, nontender, and nondistended. Bowel sounds are positive. SKIN: No acute rash. NEUROLOGIC EXAM: Limited at the present time. IMPRESSION: 1. Advanced, metastatic small cell cancer of the lung. 2. Large right pleural effusion, status post thoracentesis. 3. Right pneumothorax - resolving. 4. Chronic obstructive pulmonary disease. 5. Acute bronchospasm. 6. Respiratory failure. 7. Mild anemia. PLAN: The patient is currently sedated when I saw him this morning. I did discuss the case with the night nurse at length. I also spoke to the medical residents at length yesterday. Apparently, after he returned from the chest ultrasound, he became very short of breath. As per Dr. Monzon, only a small complex right pleural effusion was noted. No thoracentesis was done. The patient was then placed on BiPAP and received ativan. He was much more comfortable with those interventions. I will continue the current nebulizer treatments and decrease the intravenous steroids this morning. Input by Dr. Yeboah (oncology) is noted. Overall status/prognosis of this patient remains very poor. I do have daily discussions with the . Again,I did discuss the case with the night nurse at length. The patient is for probable hospice transfer in the very near future. I will discuss the above with Dr. Villa. Herb Prieto MD JIMI
--- NOTE | 2017-05-25 15:13 | DS ---
ADMITTING DIAGNOSIS: Right-sided pleural effusion. 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 CONSULTATIONS: Dr. Velazquez (hematology/oncology), Dr. Prieto (pulmonary and critical care medicine), Dr. Morales (general surgery), Dr. Monzon(international radiology) and Rosa Isela Otoole (palliative care). HISTORY OF PRESENT ILLNESS: The patient is an 81-year-old man with past medical history of CVA with residual right-sided hemiparesis and wheelchair dependence, hypertension, PVD and COPD who presented to [facility] for evaluation of a 2-week history of worsening dyspnea. The patient was evaluated by visiting nurse at home where he was found to be dyspneic and tachypneic. A pulse oximetry which was performed demonstrated an oxygen saturation of 78% and given his respiratory distress he was advised to present to the ED immediately. Upon arrival to the ED he was noted to be tachycardic with a pulse of 122, tachypneic with a respiratory rate of 38 and hypoxic with an oxygen saturation of 78% on room air. Imaging studies in the ED demonstrated a right pleural effusion with effective white-out of the right hemithorax. The patient was placed on BiPAP and evaluated by Dr. Huerta and subsequently admitted to the ICU for continued management. HOSPITAL COURSE: Upon admission to the ICU he underwent thoracentesis with removal of approximately 1.2 liters of serosanguineous fluid. A post-thoracentesis chest x -ray demonstrated a right-sided pneumothorax and the patient was evaluated by Dr. Morales of the surgical team and underwent placement of a right-sided chest tube. Repeat imaging studies demonstrated resolution of the pleural effusion but did demonstrate hilar lymphadenopathy and a right lung mass. Also evident was persistent pneumothorax. The patient underwent pleurodesis with talc with subsequent removal of his chest tube. He was then sent for CT biopsy of the liver mass which demonstrated small cell carcinoma of the lung. Unfortunately, despite aggressive medical therapy, the patient's clinical status did not improve and after discussion with the patient's family members, they were advised that given his metastatic disease the patient has a very grim prognosis and arrangements were subsequently made at the family request for hospice placement. Initially, the family had expressed interest in home hospice ; however, after seeing the rapid deterioration in the patient, they had opted for an inpatient hospice and as such arrangements were made for inpatient hospice placement. Dakota Villa MD MTDKiet
--- NOTE | 2017-05-27 17:24 | PQF SEPSIS ---
05/27/17 Dr. Dakota Villa, Sepsis is documented on progress notes of 05/19, 05/22, and 05/24 by hospice nurse. Do you agree, disagree, undetermined, with sepsis for this patient? If you agree, was sepsis present on admission? Thank you. Clarification of your documentation is requested to better reflect the severity of illness and intensity of treatment of your patient. Indicators present [] Temp < 96.8 or > 100.4 [] WBC count > 12,000/mm3 or <000/mm3 or 10% immature neutrophils [] Heart Rate > 90 [] Respiratory Rate > 20 [] Fever or hypothermia [] Chills [] Positive blood cultures [] Hypotension [] Metabolic acidosis (Elevated lactate level, anion gap or reduced blood pH) [] Acute confusion /Altered Mental Status [] Shock [] Other: [] Location in the medical record that reflects the above clinical findings: [] Treatment Provided: [] PHYSICIAN'S RESPONSE Based on your medical judgment of the clinical indicators outlined above, are you treating this patient for a known or suspected: [] Sepsis / Septicemia Please specify organism if known [] [] SIRS (Systemic Inflammatory Response Syndrome) [] Severe Sepsis (Sepsis with Associated Organ Dysfunction) [] Fever of Unknown Origin [] Other, please indicate: [] [] If Unable to Determine, please check the box, sign and date. Present On Admission (POA) Indicator: [] Present at the time of admission [] Not present at the time of admission [] Clinically Undetermined In responding to this query, please exercise your independent professional judgment. The fact that a question is asked does not imply that any particular answer is desired or expected. Thank you for your clarification on this documentation. If you have any questions please call:[ ] * Thank you, [ ] ball point splitter JIMI
--- NOTE | 2017-05-27 17:26 | PQF CHF ---
05/27/17 Dr. Dakota Villa, Acute CHF is documented. Please indicate whether this is systolic, diastolic, or both, as listed below. Thank you. Clarification of your documentation is requested to better reflect the severity of illness and intensity of treatment of your patient. Indicators present [x] Diagnosis of CHF and/or history of CHF [] BNP > 200 [] Imaging Finding of Pulmonary Edema /Pleural Effusions [] Fluid/Volume Overload [] Pitting edema [] Ejection Fraction < 40% (Indicative of Systolic Heart Failure) [] Ejection Fraction > 40% (Indicative of Diastolic Heart Failure) [x] Dyspnea / Orthopenea / Paroxysmal Nocturnal Dyspnea [] Other: Location in the medical record that reflects the above clinical findings: [] Treatment Provided: [] PHYSICIAN'S RESPONSE Based on your medical judgment of the clinical indicators outlined above, are you treating this patient for a known or suspected: [] Acute CHF [] Systolic [] Diastolic [] Combined [] Chronic CHF [] Systolic [] Diastolic [] Combined [x] Acute on Chronic CHF [x]Systolic [] Diastolic [] Combined [] CHF due hypertension [] Acute systolic []Chronic systolic [] Acute/ chronic systolic [] Other, please indicate: [] [] If Unable to Determine, please check the box, sign and date. Present On Admission (POA) Indicator: [x] Present at the time of admission [] Not present at the time of admission [] Clinically Undetermined In responding to this query, please exercise your independent professional judgment. The fact that a question is asked does not imply that any particular answer is desired or expected. Thank you for your clarification on this documentation. If you have any questions please call:[ ] * Thank you, [ ] materials inspector JIMI
--- NOTE | 2017-05-29 08:55 | PQF SEPSIS ---
05/29/17 Dr. Dakota Villa, You signed the query form regarding sepsis, but I do not see an answer to the question. Sepsis is documented by the hospice nurse on her notes of 05/19, 05/22 , and 05/24. Do you agree, disagree, other, with the diagnosis of sepsis for this patient? If you agree, was sepsis present on admission? Thanks very much. Clarification of your documentation is requested to better reflect the severity of illness and intensity of treatment of your patient. Indicators present [] Temp < 96.8 or > 100.4 [] WBC count > 12,000/mm3 or <000/mm3 or 10% immature neutrophils [] Heart Rate > 90 [] Respiratory Rate > 20 [] Fever or hypothermia [] Chills [] Positive blood cultures [] Hypotension [] Metabolic acidosis (Elevated lactate level, anion gap or reduced blood pH) [] Acute confusion /Altered Mental Status [] Shock [] Other: [] Location in the medical record that reflects the above clinical findings: [] Treatment Provided: [] PHYSICIAN'S RESPONSE Based on your medical judgment of the clinical indicators outlined above, are you treating this patient for a known or suspected: [] Sepsis / Septicemia Please specify organism if known [] [X] SIRS (Systemic Inflammatory Response Syndrome) [] Severe Sepsis (Sepsis with Associated Organ Dysfunction) [] Fever of Unknown Origin [] Other, please indicate: [] [] If Unable to Determine, please check the box, sign and date. Present On Admission (POA) Indicator: [X] Present at the time of admission [] Not present at the time of admission [] Clinically Undetermined In responding to this query, please exercise your independent professional judgment. The fact that a question is asked does not imply that any particular answer is desired or expected. Thank you for your clarification on this documentation. If you have any questions please call:[ ] * Thank you, [ ] oral surgery assistant JIMI
== END 2017-05-24 15:09 | disposition hospice, inpatient (51) | DRG 180 ==
LOC: ED 10:34 → ERH 12:34 → CCU 14:56 → 3RSO 05-18 11:03
PROVIDERS: ADMIT Student in an Organized Health Care Education/Training Program; ATTEND Student in an Organized Health Care Education/Training Program
PROC: 0W9930Z Drainage of Right Pleural Cavity with Drainage Device, Percutaneous Approach (ICD-10-PCS; principal; 2017-05-16)
PROC: 0W993ZZ Drainage of Right Pleural Cavity, Percutaneous Approach (ICD-10-PCS; 2017-05-16)
PROC: BB4BZZZ Ultrasonography of Pleura (ICD-10-PCS; 2017-05-16)
PROC: 0FB13ZX Excision of Right Lobe Liver, Percutaneous Approach, Diagnostic (ICD-10-PCS; 2017-05-18)
PROC: BF25ZZZ Computerized Tomography (CT Scan) of Liver (ICD-10-PCS; 2017-05-18)
DX: C34.90 Malignant neoplasm of unspecified part of unspecified bronchus or lung (principal); J96.01 Acute respiratory failure with hypoxia; J91.0 Malignant pleural effusion; I50.23 Acute on chronic systolic (congestive) heart failure; C78.7 Secondary malignant neoplasm of liver and intrahepatic bile duct; E87.2 Acidosis; R65.10 Systemic inflammatory response syndrome (SIRS) of non-infectious origin without acute organ dysfunction; I11.0 Hypertensive heart disease with heart failure; J94.2 Hemothorax; J44.1 Chronic obstructive pulmonary disease with (acute) exacerbation; I69.351 Hemiplegia and hemiparesis following cerebral infarction affecting right dominant side; J98.11 Atelectasis; I69.354 Hemiplegia and hemiparesis following cerebral infarction affecting left non-dominant side; J93.9 Pneumothorax, unspecified; R13.10 Dysphagia, unspecified; I27.2 Other secondary pulmonary hypertension; D64.9 Anemia, unspecified; E78.5 Hyperlipidemia, unspecified; J98.01 Acute bronchospasm; Z99.3 Dependence on wheelchair; I73.9 Peripheral vascular disease, unspecified; R29.810 Facial weakness; Z66 Do not resuscitate; Z79.899 Other long term (current) drug therapy; Z87.891 Personal history of nicotine dependence; H26.9 Unspecified cataract; Z88.0 Allergy status to penicillin; Z88.7 Allergy status to serum and vaccine; R00.0 Tachycardia, unspecified; R59.0 Localized enlarged lymph nodes; R26.81 Unsteadiness on feet; R40.2414 Glasgow coma scale score 13-15, 24 hours or more after hospital admission; I35.1 Nonrheumatic aortic (valve) insufficiency

== ENCOUNTER 2017-05-24 15:17 | Inpatient (IN) | payer OTHER ==
[2017-05-24] MEDS ORDERED: Morphine PCA 1 mg/ml (25ml) 25 ML IV PRN (15:24)
[2017-05-24 17:08] VITALS: TEMP 98.9
[2017-05-24] MEDS ORDERED: Acetylcysteine 20% Inhal Soln (4ml) IH SCH (20:00)
[2017-05-24] MEDS: Albuterol-Ipratrop 3 mg / 0.5 (3 ml) UD IH SCH ×2 (20:21→23:50)
[2017-05-24 22:04] VITALS: RESP 22
[2017-05-24] MEDS ORDERED: Pneumococcal 23-Valent Vaccine IM ONE (22:05)
--- NOTE | 2017-05-25 02:09 | CP.PCM.PRO ---
Pronouncement of Note - Clinical Findings Physical Exam: No Response Verbal/Painful Stimuli, Absent Peripheral Pulses{ Carotid & Femoral}, Absent Heart & Breath Sounds, No Pupillary Light Reflex, No Corneal Reflex, Pupils Fixed & Dilated, Absence of Vital Signs - Pronouncement Time Time of Pronouncement of : 01:55 - Notifications Pronouncement Notifications: Family Notified (2 family members are present in the room.), Atending Notified (By nurse.) Vibrator Operator Notified: No - Autopsy Autopsy Requested: No [place] [id number]
--- NOTE | 2017-05-25 15:47 | HP ---
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 Despite aggressive treatment in the ICU and the telemetry patel he was noted to clinically deteriorate and ultimately arrangements were made for inpatient hospice at the request of the family. Rosa Isela Otoole of palliative care was consulted to facilitate these arrangements. PAST MEDICAL HISTORY: As per HPI. PAST SURGICAL HISTORY: As per HPI. MEDICATIONS: Simvastatin 40 mg p.o. daily, Lopressor 25 mg p.o. b.i.d., Keppra 500 mg p.o. daily, enalapril 10 mg p.o. daily, and DuoNeb q.4 hours as needed. ALLERGIES: PENICILLIN. FAMILY HISTORY: Noncontributory. SOCIAL HISTORY: The patient denies any toxic habits. REVIEW OF SYSTEMS: Unobtainable secondary to altered mental status of the patient. PHYSICAL EXAMINATION: GENERAL: Frail elderly man appearing in his stated age who is somnolent, but arousable in moderate respiratory distress. VITAL SIGNS: Temperature 98, pulse 122, blood pressure 104/66, respiratory rate 30, and oxygen saturation 94% on 4 L nasal cannula. HEENT: PERRL. No scleral icterus. NECK: No JVD. LUNGS: Audible transmitted upper airway sounds with decreased breath sounds at the bases. CARDIOVASCULAR: Tachycardic, normal S1 and S2. ABDOMEN: Normoactive bowel sounds, soft, nontender, and nondistended. EXTREMITIES: No edema. NEUROLOGIC: Somnolent, but arousable. LABORATORY DATA: No new labs. ASSESSMENT: The patient is an 81-year-old man with past medical history of cerebrovascular accident with residual right-sided hemiparesis, hypertension, peripheral vascular disease, and chronic obstructive pulmonary disease who presented to [facility] for evaluation of 1 to 2 week history of worsening dyspnea, decreased appetite, and weight loss and who was initially admitted to the intensive care unit for impending respiratory failure secondary to a large right-sided malignant pleural effusion who despite aggressive medical therapy demonstrated continued deterioration in his clinical status and was subsequently transferred to inpatient hospice unit as per family request. PLAN: 1. 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 Input from Rosa Isela Otoole noted and greatly appreciated and input from Dr. Velazquez of hematology and oncology noted and greatly appreciated. The patient has been started on comfort care measures as per family request. 2. Hyperlipidemia. 3. History of CVA with residual right-sided hemiparesis. 4. Hypertension. 5. Anxiety. CODE STATUS: DNR/DNI. Dakota Villa MD MTDD
--- NOTE | 2017-05-26 03:01 | DS ---
ADMITTING DIAGNOSIS: Stage IV small cell carcinoma of the lung with hepatic metastasis. DISCHARGE DIAGNOSIS: Stage IV small cell carcinoma of the lung with hepatic metastasis. SECONDARY DIAGNOSES: Hyperlipidemia, hypertension, history of cerebrovascular accident with residual right-sided hemiparesis. HISTORY OF PRESENT ILLNESS: The patient is an 81-year-old man with multiple medical comorbidities who presented to [facility] for evaluation with a 2-week history of worsening dyspnea. He was initially admitted to the ICU for impending respiratory failure secondary to a right-sided pleural effusion. After an exhaustive workup, the etiology of the pleural effusion was found to be secondary to small cell carcinoma of the lung. A cancer workup demonstrated the malignancy to be stage IV with hepatic metastasis. Given his multiple comorbidities and extent of the disease, the patient was admitted to the inpatient hospice unit for comfort care measures. HOSPITAL COURSE: Upon admission to the inpatient hospice unit the patient was placed on morphine drip for comfort measures. Several hours later he was noted to have cessation of spontaneous movements and respirations by his family who were at bedside. He was evaluated by the house physician and was pronounced at 1:55 a.m. DISPOSITION: The patient . Dakota Villa MD MTDD
== END 2017-05-25 01:55 | DRG 181 ==
LOC: 3RSO 15:17
PROVIDERS: ADMIT Student in an Organized Health Care Education/Training Program; ATTEND Student in an Organized Health Care Education/Training Program
DX: C34.90 Malignant neoplasm of unspecified part of unspecified bronchus or lung (principal); Z51.5 Encounter for palliative care; J91.0 Malignant pleural effusion; C78.7 Secondary malignant neoplasm of liver and intrahepatic bile duct; I69.351 Hemiplegia and hemiparesis following cerebral infarction affecting right dominant side; I10 Essential (primary) hypertension; E78.5 Hyperlipidemia, unspecified; Z66 Do not resuscitate